=== PATIENT | female | born 1960 | race Two or more races ===

== ENCOUNTER 2024-09-02 11:13 | Emergency (ER) | payer MEDICARE, SELFPAY ==
[2024-09-02 12:41] VITALS: BP 166/62; PULSE 71; RESP 19; TEMP 36.5; O2SAT 96; BMI 39.9
--- NOTE | 2024-09-02 13:04 | XR_ITS ---
Examination: PA lateral chest 2 views TECHNIQUE: Upright PA lateral chest 2 views Exam date 9: September 02, 2023 1318 hours Comparison February 16, 2024 INDICATIONS: Patient fell 2 days ago with injury of the chest, chest pain weakness FINDINGS: Normal heart size Mild vascular congestion. No pneumothorax. Moderate osteopenia. Lateral coned ribs thoracic vertebral bodies appear intact IMPRESSION: No pneumothorax pulmonary contusion or hemothorax
--- NOTE | 2024-09-02 13:04 | EKG_ITS ---
[facility] Test Date: 2024-09-02 Pat Name: SOLE HENDRICKSON Department: Room: - Gender: Female Anode Adjuster: : 1960 Requested By: Bala Foss Order Number: [id number] Reading MD: Bala Foss Measurements Intervals [place] Rate: 69 P: 30 DC: 168 QRS: 17 QRSD: 94 T: 26 QT: 401 QTc: 432 Interpretive Statements SINUS RHYTHM Compared to ECG 09/21/2023 10:28:59 No significant changes /store/S0/[id number]
--- NOTE | 2024-09-02 13:08 | EDNOTE_ITS ---
<Statement entered by Angela Luna MD - 09/03/24 06:45> As co-signing physician, I was present and available for consult prn. I concur with the plan and care as documented by the midlevel provider. ED Fall Injury RME/HPI General Chief Complaint: Fall Stated Complaint: FALL 2 DAYS AGO, GENERALIZED PAIN Time Seen by Provider: 09/02/24 12:51 Arrival date/time: 09/02/24 11:13 RME / HPI RME / HPI Narrative: 64-year-old patient with history of diabetes presents emergency department with complaint of generalized body pain and weakness. Patient states that she was diagnosed with pemphigus and prescribed Imuran by her PCP she was also prescribed a steroid cream. Patient states that she has not had any relief from her diagnosis but has persistently gotten generalized bodyaches which led to a fall 2 days ago she denies trauma from the fall. Patient is currently afebrile nontoxic-appearing. Related Data Home Medications ?Medication ?Instructions ?Recorded ?Confirmed lisinopril 30 mg tablet 20 mg PO QDAY #0 tabs 10/07/14 06/17/20 insulin glargine 100 unit/mL (3 45 unit subcut QDAY 03/06/18 06/17/20 mL) subcutaneous pen (Basaglar KwikPen U-100 Insulin) pregabalin 100 mg capsule (Lyrica) 100 mg PO BID 03/06/18 06/17/20 Previous Rx's ?Medication ?Instructions ?Recorded ibuprofen 800 mg tablet 800 mg PO TID PRN pain #30 tabs 08/21/18 cephalexin 500 mg capsule (Keflex) 500 mg PO BID #20 caps 06/17/20 azithromycin 250 mg tablet See Rx Instructions PO .COMPLEX #6 07/01/21 (Zithromax Z-Gee) tabs ciprofloxacin HCl 500 mg tablet 500 mg PO BID #10 tabs 02/18/23 (Cipro) ciprofloxacin HCl 500 mg tablet 500 mg PO BID #14 tabs 09/21/23 (Cipro) meclizine 50 mg tablet 50 mg PO QDAY #14 tabs 09/21/23 furosemide 20 mg tablet (Lasix) 20 mg PO QDAY #14 tabs 11/05/23 potassium chloride 20 mEq 20 meq PO QDAY #10 tabs 11/05/23 tablet,extended release(part/cryst) sulfamethoxazole 800 1 tab PO BID #14 tabs 11/05/23 mg-trimethoprim 160 mg tablet (Bactrim DS) promethazine 6.25 mg/5 mL oral 6.25 mg (5 mL) PO TID PRN allergy 02/16/24 syrup symptoms #473 mL Allergies Allergy/AdvReac Type Severity Reaction Status Date / Time vancomycin Allergy Severe HEART Verified 09/02/24 11:16 PALPITATION, CONFUSION, STOMACH PAIN Review of Systems Review of Systems Systems Reviewed: All systems reviewed, normal except as documented Constitutional Constitutional: Reports system reviewed and no additional complaints, except as documented ENT Ears, Nose, Mouth, and Throat: Reports system reviewed and no additional complaints, except as documented Cardiovascular Cardiovascular: Reports system reviewed and no additional complaints, except as documented Gastrointestinal Gastrointestinal: Reports system reviewed and no additional complaints, except as documented Musculoskeletal Musculoskeletal: Reports system reviewed and no additional complaints, except as documented Neurologic Neurologic: Reports system reviewed and no additional complaints, except as documented ED Exam General General appearance: Present alert and in no apparent distress Head Head exam: Present atraumatic and normocephalic ENT ENT exam: Present normal exam and normal oropharynx Chest Chest inspection: Present normal inspection and symmetric chest wall rise Respiratory Respiratory exam: Present normal lung sounds bilaterally Cardiovascular Cardiovascular exam: Present regular rate and normal rhythm Extremities Exam Extremities exam: Present normal inspection and full ROM Neurological Exam Neurological exam: Present alert and oriented X3 Psychiatric Psychiatric exam: Present normal affect Course Quality Measures none Orders Category Date Time Status EKG (ED ONLY) *Do not use* NOW Care 09/02/24 13:04 Completed EKG (ED Only) Stat Exams 09/02/24 13:04 Draft XR chest 2V Stat Exams 09/02/24 13:04 Completed B-Type Natriuretic Peptide Stat Lab 09/02/24 13:40 Completed CBC Stat Lab 09/02/24 13:40 Completed Comprehensive Metabolic Panel Stat Lab 09/02/24 13:40 Completed Lipase Stat Lab 09/02/24 13:40 Completed Troponin I Stat Lab 09/02/24 13:40 Completed Furosemide Inj [Lasix Inj] Med 09/02/24 13:04 Discontinued 20 mg IVP X1 ONE Sodium Chloride 0.9% 1000 ml [Ns] 1,000 ml Med 09/02/24 13:05 Discontinued IV 999 mls/hr Vital Signs Vital signs: Vital Signs Temperature 97.7 F 09/02/24 12:41 Pulse Rate 71 09/02/24 12:41 Respiratory Rate 19 09/02/24 12:41 Blood Pressure 166/62 H 09/02/24 12:41 Pulse Oximetry (%) 96 09/02/24 12:41 Oxygen Delivery Method Room Air 09/02/24 12:41 Procedures -ED EKG Interpretation #1: Date of EK09/02/24 Time of EK:11 Rate: 69 Interpretation: Reviewed by me EKG Impression: No acute ST-T changes Fall MDM Narrative MDM Narrative:: Labs unremarkable patient stable to follow-up up with PCP Patient data External records reviewed:: None Clinical information provided by:: patient Social determinants that could affect healthcare access:: none Patient has the following chronic illnesses:: DM How is presenting disease/condition affected by chronic disease/condition?: exacerbated by Evaluation data The following diagnostics were reviewed and interpreted by me:: lab results, radiology exam(s) and EKG tracing(s) Lab and/or radiology exams considered but not ordered:: considered and ordered Interpretation Summary: n/a Medications / Prescriptions Medications or Prescriptions considered but not ordered:: na Medication administrations:: Medication Administration History Discontinued Medications Furosemide (Furosemide Inj 10 Mg/Ml 4ml Vial) 20 mg IVP X1 ONE Stop: 09/02/24 13:05 Sodium Chloride (Ns) 1,000 mls @ 999 mls/hr IV .Q1H1M ONE Stop: 09/02/24 14:05 per above Consultations Consultation(s) initiated? (list below): No Diagnosis Fall Differential Diagnosis: syncope, dislocation of shoulder region, fracture of wrist, compression fracture, concussion with loss of consciousness and concussion without loss of consciousness Most likely diagnosis given after review of the tests above:: medical screen, reaction to Azathiopine Admission Indicated Admission indicated?: not indicated Admission Request Was there a request for admission?: No Disposition Plan Disposition Plan: Discharge Discharge Attestation Discharge Attestation: The patient and all family members were given an opportunity to ask questions and understood the discharge instructions. Discharge instructions specifically effects, indications for sooner follow up or return to the emergency department, and the expected course of current diagnosis. Patient condition: Stable Discharge Plan Plan Patient Disposition: HOME (Self Care) Prescriptions/Referrals Prescriptions/Med Rec: No Action lisinopril 30 MG tablet 20 mg PO QDAY Qty: 0 cephalexin [Keflex] 500 mg capsule 500 mg PO BID Qty: 20 0RF pregabalin [Lyrica] 100 mg Capsule 100 mg PO BID Shunaglekaterina LimonikPen U-100 Insulin 100 unit/mL (3 mL) Insulin Pen 45 unit SUB-Q QDAY ibuprofen 800 mg tablet 800 mg PO TID PRN (Reason: pain) Qty: 30 0RF azithromycin [Zithromax Z-Gee] 250 mg tablet See Rx Instructions PO .COMPLEX Qty: 6 0RF Rx Instructions: take 500 mg today (day 1), then 250 mg for 4 days (days 2-5) meclizine 50 mg tablet 50 mg PO QDAY Qty: 14 0RF ciprofloxacin HCl [Cipro] 500 mg tablet 500 mg PO BID Qty: 14 0RF sulfamethoxazole-trimethoprim [Bactrim DS] 800-160 mg tablet 1 tab PO BID Qty: 14 0RF furosemide [Lasix] 20 mg tablet 20 mg PO QDAY Qty: 14 0RF potassium chloride 20 mEq tablet,ER particles/crystals 20 meq PO QDAY Qty: 10 0RF ciprofloxacin HCl [Cipro] 500 mg tablet 500 mg PO BID Qty: 10 0RF promethazine 6.25 mg/5 mL syrup 6.25 mg PO TID PRN (Reason: allergy symptoms) Qty: 473 0RF Rx Instructions: 3 doses during day; last dose no later than 4 hr before bedtime Referrals: Rickie Landrum MD [Primary Care Provider] - In 1 week Problem List Clinical Impression: Myalgia Patient/Caregiver Discharge Instructions Education Materials: Communicating About Pain, ED Myalgias Print Language: Dominican Stand Alone Forms: Adrianne Award Info., Patient Portal Info Letter
[2024-09-02 13:45] LABS: Basophils # (Auto) 0.1 Thou/mm3 (0.0-0.2); Basophils % (Auto) 1 % (0-2.5); Eosinophils # (Auto) 0.6 Thou/mm3 (0.0-0.5); Eosinophils % (Auto) 6 % (0-10); Hematocrit 44.6 % (36.0-46.0); Hemoglobin 14.4 g/dL (12.0-16.0); Immature Granulocytes % (Auto) 0 % (0-0); Immature Granulocytes Auto 0.03 Thou/mm3 (0.00-0.00); Lymphocytes # (Auto) 1.4 Thou/mm3 (1.0-4.8); Lymphocytes % (Auto) 12 % (10-50); Mean Corpuscular HGB Conc 32.3 g/dl (31.0-37.0); Mean Corpuscular Hemoglobin 31.4 pg (25.0-35.0); Mean Corpuscular Volume 97 fL (80-100); Monocytes # (Auto) 0.7 Thou/mm3 (0.0-0.8); Monocytes % (Auto) 6 % (0-12); Neutrophils # (Auto) 8.3 Thou/mm3 (1.8-7.7); Neutrophils % (Auto) 75 % (37-80); Nucleated Red Blood Cell % 0 /100 WBC (0); Platelet Count 303 Thou/mm3 (140-440); RDW Standard Deviation 59.9 fL (36.4-46.3); Red Blood Count 4.59 Miln/mm3 (4.00-5.20); White Blood Count 11.1 Thou/mm3 (3.6-11.0)
[2024-09-02 14:03] LABS: Alanine Aminotransferase 30 U/L (10-49); Albumin, Serum 3.9 gm/dL (3.4-4.8); Albumin/Globulin Ratio 1.2 (1.2-2.2); Alkaline Phosphatase 175 U/L (46-116); Anion Gap 7 (7-16); Aspartate Amino Transferase 45 U/L (0-34); BUN/Creatinine Ratio 33 Ratio (12-20); Bilirubin,Total 0.5 mg/dL (0.3-1.2); Blood Urea Nitrogen 26 mg/dL (9-23); Calcium 9.5 mg/dL (8.3-10.6); Calcium (Corrected) 9.6 mg/dL (8.5-10.1); Carbon Dioxide 29.7 mMol/L (20.0-31.0); Chloride 105 mMol/L (98-107); Creatinine (Component) 0.8 mg/dL (0.6-1.3); Estimated Creatinine Clearance 83.1 mL/min (>60); Globulin 3.2 gm/dL (2.3-3.5); Glucose 100 mg/dL (74-106); Lipase 82 U/L (12-53); Osmolality,Calculated 287 (275-295); Potassium 4.1 mMol/L (3.4-5.1); Sodium 142 mMol/L (136-145); Total Protein 7.1 gm/dL (5.7-8.2); Troponin I < 0.020 ng/mL (0.0-0.045); eGFR > 60 See Note
[2024-09-02 14:08] LABS: B-Type Natriuretic Peptide 64 pg/mL (0-100)
[2024-09-02] MEDS: SODIUM CHLORIDE 0.9% 1000 ML 1,000 ML 999 ML IV (16:20)
[2024-09-02 16:29] VITALS: BP 166/67; PULSE 73
[2024-09-02] MEDS: FUROSEMIDE INJ 10 MG/ML 4ML VIAL 20 MG IVP (16:29)
--- NOTE | 2024-09-02 17:09 | PC.NURSE ---
Received report from Zenobia ARMENTA and assumed care of patient.
[2024-09-02] MEDS: MORPHINE SULF INJ 10 MG/ML VIAL 4 MG IVP (18:07)
[2024-09-02 18:11] VITALS: BP 174/63; PULSE 65; RESP 18; TEMP 36.4; O2SAT 94
== END 2024-09-02 18:18 | disposition home or self-care (01) ==
PROVIDERS: Physician Assistant; Emergency Provider Emergency Medicine; PCP Family Medicine
DX: M79.10 Myalgia, unspecified site (principal); R53.1 Weakness
CPT/HCPCS: 36415; 71046; 80053; 83690; 83880; 84484; 85025; 93005; 96361; 96374; 96375; 99284; J1940; J2270; J7030

== ENCOUNTER 2024-10-01 18:17 | Emergency (ER) | payer MEDICARE, SELFPAY ==
[2024-10-01] VITALS (9 sets, daily range): BP systolic 142–167; BP diastolic 61–89; PULSE 56–88; RESP 16–20; TEMP 36.4–36.6; O2SAT 87–99; BMI 39.4
--- NOTE | 2024-10-01 18:49 | PD.EDFALL ---
ED Fall Injury RME/HPI General Chief Complaint: Fall Stated Complaint: FALL Time Seen by Provider: 10/01/24 18:35 Source: patient Arrival date/time: 10/01/24 18:17 Mode of arrival: ambulatory Limitations: no limitations RME / HPI RME / HPI Narrative: Dr. 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 She was brought in by ambulance for significant back pain and right upper quadrant pain. The patient states that she was walking into a restaurant when she suddenly fell backward. She denies experiencing dizziness, shortness of breath, chest pain, or lightheadedness prior to the fall. She reports a history of right foot drop. She also denies any recent Tdap vaccination. Related Data Home Medications ?Medication ?Instructions ?Recorded ?Confirmed lisinopril 30 mg tablet 20 mg PO QDAY #0 tabs 10/07/14 06/17/20 insulin glargine 100 unit/mL (3 45 unit subcut QDAY 03/06/18 06/17/20 mL) subcutaneous pen (Basaglar KwikPen U-100 Insulin) pregabalin 100 mg capsule (Lyrica) 100 mg PO BID 03/06/18 06/17/20 Previous Rx's ?Medication ?Instructions ?Recorded ibuprofen 800 mg tablet 800 mg PO TID PRN pain #30 tabs 08/21/18 cephalexin 500 mg capsule (Keflex) 500 mg PO BID #20 caps 06/17/20 azithromycin 250 mg tablet See Rx Instructions PO .COMPLEX #6 07/01/21 (Zithromax Z-Gee) tabs ciprofloxacin HCl 500 mg tablet 500 mg PO BID #10 tabs 02/18/23 (Cipro) ciprofloxacin HCl 500 mg tablet 500 mg PO BID #14 tabs 09/21/23 (Cipro) meclizine 50 mg tablet 50 mg PO QDAY #14 tabs 09/21/23 furosemide 20 mg tablet (Lasix) 20 mg PO QDAY #14 tabs 11/05/23 potassium chloride 20 mEq 20 meq PO QDAY #10 tabs 11/05/23 tablet,extended release(part/cryst) sulfamethoxazole 800 1 tab PO BID #14 tabs 11/05/23 mg-trimethoprim 160 mg tablet (Bactrim DS) promethazine 6.25 mg/5 mL oral 6.25 mg (5 mL) PO TID PRN allergy 02/16/24 syrup symptoms #473 mL mupirocin 2 % topical ointment 1 applic topical BID 7 days #15 10/01/24 grams Allergies Allergy/AdvReac Type Severity Reaction Status Date / Time vancomycin Allergy Severe HEART Verified 09/02/24 11:16 PALPITATION, CONFUSION, STOMACH PAIN Review of Systems Review of Systems Systems Reviewed: All systems reviewed, normal except as documented Past Medical History Past Medical History NEUROLOGIC: Negative Neurological Disorders or Seizures CARDIAC: Positive Hypertension; Negative Cardiac Disorders or Congestive Heart Failure RESPIRATORY: Negative Chronic Obstructive Pulmonary Disease (COPD) or Asthma GASTROINTESTINAL: Positive Gastrointestinal Disorders (hernia x 3) GENITOURINARY: Negative Renal Disease MUSCULOSKELETAL: Positive Musculoskeletal Disorders (osteoarthritis hips) ENDOCRINE: Positive Endocrine Disorders, Diabetes Mellitus Type 2 and Hypothyroidism; Negative Diabetes Mellitus Type 1 HEMATOLOGIC: Negative Sickle Cell Disease OTHER HISTORY: Positive Falls; Negative Blood Transfusions or Anesthesia Reactions Family History FAMILY HISTORY: Negative Family Gastrointestinal Problems Surgical History SURGICAL: Positive Bowel Surgery Social History SMOKING STATUS: Never smoker SECOND HAND EXPOSURE: No SUBSTANCE USE: does not use ED Exam Narrative Physical exam: GENERAL APPEARANCE: alert and oriented x 4, well-developed, well-nourished, no acute distress VITALS: All vitals were reviewed and the pulse ox is 95% on room air, which is normal according to my interpretation. HEENT: Normocephalic, atraumatic; pupils equal, round, reactive to light; EOMI; mucous membranes pink, moist; oropharynx clear NECK: Supple LUNGS: CTABL; no wheezes, no rales, no rhonchi HEART: Regular rate, regular rhythm; normal S1, S2; no murmurs ABDOMEN: non distended; normal BS; soft, no tenderness, no guarding, no rebound; no masses, no organomegaly, no hernia BACK: no CVA tenderness EXTREMITIES: atraumatic; no edema NEUROLOGIC: awake; alert and oriented x4; cranial nerves II-XII grossly intact; no focal sensory or motor deficits PSYCHIATRIC: appropriate mood and affect SKIN: Posterior distal scott: 2 cm open lesion without surrounding erythema, swelling, or drainage. Several well-healed circular lesions noted bilaterally. Right ankle (medial side): <1 cm open lesion without surrounding erythema, swelling, or drainage. Right patella: Small superficial abrasion with associated swelling and ecchymosis. General Limitations: Present no limitations Course Quality Measures none Orders Category Date Time Status Bedside Blood Glucose NOW Care 10/01/24 18:[address] Screening NOW Care 10/01/24 18:53 Active Marriage And Family Social Worker NOW Care 10/01/24 18:53 Active Continuous Pulse Oximetry NOW Care 10/01/24 18:52 Completed EKG (ED ONLY) *Do not use* NOW Care 10/01/24 18:53 Completed In and Out Catheter X1 Care 10/01/24 18:52 Active Insert IV NOW Care 10/01/24 18:53 Active NPO NOW Care 10/01/24 18:[address] abdomen pelvis w con Stat Exams 10/01/24 18:[address] cervical spine wo con Stat Exams 10/01/24 18:[address] head/brain wo con Stat Exams 10/01/24 18:52 Completed EKG (ED Only) Stat Exams 10/01/24 18:52 Draft XR knee comp RT 4V Stat Exams 10/01/24 18:52 Completed Alcohol, Blood Medical Stat Lab 10/01/24 19:10 Completed CBC Stat Lab 10/01/24 19:10 Completed Comprehensive Metabolic Panel Stat Lab 10/01/24 19:10 Completed Drug Screen,Urine Stat Lab 10/01/24 18:53 Ordered Lipase Stat Lab 10/01/24 19:10 Completed Troponin I Stat Lab 10/01/24 19:10 Completed Urinalysis Stat Lab 10/01/24 18:53 Ordered Morphine Inj Med 10/01/24 18:57 Active 2 mg IVP Q30M PRN Ondansetron Inj [Zofran Inj] Med 10/01/24 18:57 Discontinued 4 mg IV X1 ONE Tet,Diphth,Pertuss(Acell)-Tdap [Boostrix Vacc] Med 10/01/24 18:57 Discontinued 0.5 ml IMI .ONCE ONE Vital Signs Vital signs: Vital Signs Temperature 97.6 F 10/01/24 18:20 Pulse Rate 65 10/01/24 18:20 Respiratory Rate 16 10/01/24 18:20 Blood Pressure 166/81 H 10/01/24 18:20 Pulse Oximetry (%) 95 10/01/24 18:20 Oxygen Delivery Method Room Air 10/01/24 18:20 Procedures -ED Procedure Comment Patient's EKG at 20:05, according to my interpretation, showed NSR at 64 bpm, normal axis, no ectopy. No signs of acute ischemia. Fall MDM Narrative MDM Narrative:: 64-year-old female presents for significant back pain and right upper quadrant pain following ground level fall. Plan: -Order CT abdomen pelvis w con, CT head/brain wo con, CT cervical spine wo con, RT knee XR 4V -Administer appropriate pain relief for comfort -Treat lower extremity wounds as needed Scribe Attestation: I, Camille Beckwith, am scribing for and in the presence of Dr. Navarrete. Provider Notation: Although this document has been carefully reviewed, there may still be some phonetic and other typographical errors. These errors are purely grammatical due to imperfections in the software program and should not be construed in any way to compromise the substance of the patient's medical care during this visit. Patient data External records reviewed:: [facility] previous records and EMS form Clinical information provided by:: patient Social determinants that could affect healthcare access:: none Patient has the following chronic illnesses:: See PMH How is presenting disease/condition affected by chronic disease/condition?: uneffected by Evaluation data The following diagnostics were reviewed and interpreted by me:: lab results, radiology exam(s) and EKG tracing(s) Lab and/or radiology exams considered but not ordered:: None Interpretation Summary: XR RT knee 4V, my interpretation, no fractures, no patella fracture, no joint effusion Examination: CT brain head without contrast. Date and time of exam:October 01, 2024 at 1942 hours INDICATIONS: Patient fell today with injury of the head, head pain Findings: No significant ventricular enlargement. Intra-axial or extra-axial hemorrhage density is not seen. No mass effect or midline shift Basal cisterns are not remarkable. Fourth ventricle is midline. Cranial vault intact. Impression: Negative for acute hemorrhage, mass effect or midline shift Dictated By: Rj Fritz MD Examination: CT cervical spine without contrast 2-D sagittal reconstructions 2-D coronal reconstructions 3-D reconstructions. Exam date and time:October 01, 2024 1947 hours INDICATIONS: Patient fell today with injury to the neck, neck pain Findings: Axial sections demonstrate intact base of the skull. C1 exhibit satisfactory relationship to the odontoid. No acute cervical vertebral body fracture seen. Alignment posterior spinous processes satisfactory. Impression: No acute cervical fracture. Suspicious for septal edema in the lung mathew, recommend PA and lateral chest follow-up Dictated By: Rj Fritz MD Examination: CT abdomen with intravenous contrast CT pelvis with intravenous contrast 2-D coronal reconstructions 2-D sagittal reconstructions Date and time of exam:October 01, 20244 hours INDICATIONS: Upper abdominal pain after ground-level fall today. Findings: Liver is mildly irregular in contour No focal liver splenic or renal laceration, no perinephric hematoma Absent gallbladder No pancreatic mass Abdominal aorta intact, no free blood in the abdomen Negative for pneumoperitoneum Right anterior lateral abdominal wall hernia defect 23 mm Soft tissue density in subcutaneous fatty tissue in the lower abdomen and pelvis which may represent soft tissue contusion as well as left flank posterior to the left hip Lumbar vertebral bodies sacral segments appear intact Bones of the pelvis hips appear intact Laminectomies lower 3 lumbar levels. IMPRESSION: No abdominal parenchymal laceration Abdominal aorta intact No free blood in the abdomen or pelvis Possible soft tissue contusion and subcutaneous fatty tissue lower anterior abdominal and pelvic wall, clinical correlation is advised Dictated By: Rj Fritz MD Medications / Prescriptions Medications or Prescriptions considered but not ordered:: None Medication administrations:: Medication Administration History Morphine Sulfate (Morphine Sulf Inj 10 Mg/Ml Vial) 2 mg IVP Q30M PRN PRN Reason: PAIN Last Admin: 10/01/24 21:17 Dose: 2 mg Documented By: Admin: 10/01/24 20:05 Dose: 2 mg Documented By: EF Discontinued Medications Diphtheria/Tetanus/Acell Pertussis (Diphth,Pertuss(Acell),Tet Vac 0.5 Ml Vial) 0.5 ml IMi .ONCE ONE Stop: 10/01/24 18:58 Last Admin: 10/01/24 21:17 Dose: 0.5 ml Documented By: MARY Ondansetron HCl (Ondansetron Inj 2 Mg/Ml Inj 2 Ml) 4 mg IV X1 ONE; Protocol Stop: 10/01/24 18:58 Last Admin: 10/01/24 20:06 Dose: 4 mg Documented By: EF As above, if any Consultations Consultation(s) initiated? (list below): No Diagnosis Fall Differential Diagnosis: other (RIght patellar fracture vs knee fracture vs T-Spine fx vs L-Spine fx vs Liver lac vs Right kidney contusion vs C-spine fx vs Skull fracture) Most likely diagnosis given after review of the tests above:: Ground level fall with abrasions Admission Indicated Admission indicated?: not indicated Admission Request Was there a request for admission?: No Disposition Plan Disposition Plan: Discharge Discharge Attestation Discharge Attestation: The patient and all family members were given an opportunity to ask questions and understood the discharge instructions. Discharge instructions specifically effects, indications for sooner follow up or return to the emergency department, and the expected course of current diagnosis. Patient condition: Stable Discharge Plan Plan Patient Disposition: HOME (Self Care) Disposition Comment: Stable for discharge Patient condition on transfer: Stable Prescriptions/Referrals Prescriptions/Med Rec: New mupirocin 2 % ointment 1 applic topical BID 7 Days Qty: 15 0RF No Action lisinopril 30 MG tablet 20 mg PO QDAY Qty: 0 cephalexin [Keflex] 500 mg capsule 500 mg PO BID Qty: 20 0RF pregabalin [Lyrica] 100 mg Capsule 100 mg PO BID Shunaglekaterina Barboza U-100 Insulin 100 unit/mL (3 mL) Insulin Pen 45 unit SUB-Q QDAY ibuprofen 800 mg tablet 800 mg PO TID PRN (Reason: pain) Qty: 30 0RF azithromycin [Zithromax Z-Gee] 250 mg tablet See Rx Instructions PO .COMPLEX Qty: 6 0RF Rx Instructions: take 500 mg today (day 1), then 250 mg for 4 days (days 2-5) meclizine 50 mg tablet 50 mg PO QDAY Qty: 14 0RF ciprofloxacin HCl [Cipro] 500 mg tablet 500 mg PO BID Qty: 14 0RF sulfamethoxazole-trimethoprim [Bactrim DS] 800-160 mg tablet 1 tab PO BID Qty: 14 0RF furosemide [Lasix] 20 mg tablet 20 mg PO QDAY Qty: 14 0RF potassium chloride 20 mEq tablet,ER particles/crystals 20 meq PO QDAY Qty: 10 0RF ciprofloxacin HCl [Cipro] 500 mg tablet 500 mg PO BID Qty: 10 0RF promethazine 6.25 mg/5 mL syrup 6.25 mg PO TID PRN (Reason: allergy symptoms) Qty: 473 0RF Rx Instructions: 3 doses during day; last dose no later than 4 hr before bedtime Referrals: Replaced By [facility] [Outside] - In 1 week Problem List Clinical Impression: Abrasion Patient/Caregiver Discharge Instructions Discharge Activity: activity as tolerated Other Activity Instructions:: Please return to the emergency department for any worsening or any further medical problems Otherwise you should follow-up with your primary care doctor within the next several days Education Materials: Contusion Bone Tx Print Language: Polish Stand Alone Forms: Adrianne Award Info., Patient Portal Info Letter
--- NOTE | 2024-10-01 18:52 | EKG_ITS ---
[facility] Test Date: 2024-10-01 Pat Name: SOLE HENDRICKSON Department: Room: - Gender: Female Contract Designer: : 1960 Requested By: Clark Fong Order Number: [id number] Reading MD: Clark Fong Measurements Intervals [place] Rate: 60 P: 24 NM: 160 QRS: 12 QRSD: 98 T: 29 QT: 428 QTc: 430 Interpretive Statements SINUS RHYTHM Compared to ECG 09/02/2024 13:11:31 No significant changes /store/S0/[id number]
--- NOTE | 2024-10-01 18:52 | XR_ITS ---
Examination: CT abdomen with intravenous contrast CT pelvis with intravenous contrast 2-D coronal reconstructions 2-D sagittal reconstructions Date and time of exam:October 01, 20242023 hours INDICATIONS: Upper abdominal pain after ground-level fall today. CTDI: vol (mGy) 21.1 DLP: (mGycm) 1264 Technique: Multiple axial sections of the abdomen and pelvis have been obtained. 64 slice high-resolution scanner used. 3 mm axial sections have been obtained, post intravenous injection 60 cc [id number] 2-D sagittal, coronal reconstructions obtained. Low dose protocols were performed. One or more of the following dose reduction techniques were used; automated exposure control, adjustment of the mA and/or KV according to patient size, use of iterative reconstruction technique. Findings: Liver is mildly irregular in contour No focal liver splenic or renal laceration, no perinephric hematoma Absent gallbladder No pancreatic mass Abdominal aorta intact, no free blood in the abdomen Negative for pneumoperitoneum Right anterior lateral abdominal wall hernia defect 23 mm Soft tissue density in subcutaneous fatty tissue in the lower abdomen and pelvis which may represent soft tissue contusion as well as left flank posterior to the left hip Lumbar vertebral bodies sacral segments appear intact Bones of the pelvis hips appear intact Laminectomies lower 3 lumbar levels. IMPRESSION: No abdominal parenchymal laceration Abdominal aorta intact No free blood in the abdomen or pelvis Possible soft tissue contusion and subcutaneous fatty tissue lower anterior abdominal and pelvic wall, clinical correlation is advised
--- NOTE | 2024-10-01 18:52 | XR_ITS ---
Examination: CT brain head without contrast. 2-D sagittal coronal reconstructions Date and time of exam:October 01, 2024 at 1942 hours INDICATIONS: Patient fell today with injury of the head, head pain CTDI: vol (mGy):49.3 DLP: (mGycm):952 Technique: Multiple CT axial sections of the brain have been obtained, 5 mm slice thickness. Contrast has not been administered. 2-D sagittal, coronal reconstructions have been obtained Low dose protocols were performed. One or more of the following dose reduction techniques were used; automated exposure control, adjustment of the mA and/or KV according to patient size, use of iterative reconstruction technique. Findings: No significant ventricular enlargement. Intra-axial or extra-axial hemorrhage density is not seen. No mass effect or midline shift Basal cisterns are not remarkable. Fourth ventricle is midline. Cranial vault intact. Impression: Negative for acute hemorrhage, mass effect or midline shift
--- NOTE | 2024-10-01 18:52 | XR_ITS ---
Examination: Right knee 4 views TECHNIQUE: AP oblique lateral axial right knee 4 views Standing time: October 01, 2024 1911 hours INDICATIONS: Patient fell today with injury of the knee, knee pain. FINDINGS: Severe osteopenia. No acute fracture. No dislocation. Soft tissue vascular calcification. No patellar dislocation IMPRESSION: No acute fracture. Given the severe osteopenia, recommend short-term follow-up knee films as clinically warranted
--- NOTE | 2024-10-01 18:52 | XR_ITS ---
Examination: CT cervical spine without contrast 2-D sagittal reconstructions 2-D coronal reconstructions 3-D reconstructions. Exam date and time:October 01, 2024 1947 hours INDICATIONS: Patient fell today with injury to the neck, neck pain CTDI:vol (mGy) 9.56 DLP: (mGycm) 193 Technique: Multiple 2 mm axial sections of the cervical spine have been obtained. The coronal and sagittal reconstructions have been obtained. 3-D reconstructions have been obtained. Low dose protocols were performed. One or more of the following dose reduction techniques were used; automated exposure control, adjustment of the mA and/or KV according to patient size, use of iterative reconstruction technique. Findings: Axial sections demonstrate intact base of the skull. C1 exhibit satisfactory relationship to the odontoid. No acute cervical vertebral body fracture seen. Alignment posterior spinous processes satisfactory. Impression: No acute cervical fracture. Suspicious for septal edema in the lung mathew, recommend PA and lateral chest follow-up
[2024-10-01 19:41] LABS: Basophils # (Auto) 0.1 Thou/mm3 (0.0-0.2); Basophils % (Auto) 1 % (0-2.5); Eosinophils # (Auto) 0.4 Thou/mm3 (0.0-0.5); Eosinophils % (Auto) 5 % (0-10); Hematocrit 42.5 % (36.0-46.0); Hemoglobin 13.6 g/dL (12.0-16.0); Immature Granulocytes % (Auto) 1 % (0-0); Immature Granulocytes Auto 0.05 Thou/mm3 (0.00-0.00); Lymphocytes # (Auto) 1.2 Thou/mm3 (1.0-4.8); Lymphocytes % (Auto) 13 % (10-50); Mean Corpuscular Hemoglobin 31.3 pg (25.0-35.0); Mean Corpuscular Volume 98 fL (80-100); Monocytes # (Auto) 0.5 Thou/mm3 (0.0-0.8); Monocytes % (Auto) 5 % (0-12); Neutrophils # (Auto) 7.1 Thou/mm3 (1.8-7.7); Neutrophils % (Auto) 76 % (37-80); Nucleated Red Blood Cell % 0 /100 WBC (0); Platelet Count 303 Thou/mm3 (140-440); RDW Standard Deviation 60.6 fL (36.4-46.3); Red Blood Count 4.34 Miln/mm3 (4.00-5.20); White Blood Count 9.3 Thou/mm3 (3.6-11.0)
[2024-10-01] MEDS: MORPHINE SULF INJ 10 MG/ML VIAL 2 MG IVP ×3 (20:05→22:36)
[2024-10-01] MEDS: ONDANSETRON INJ 2 MG/ML INJ 2 ML 4 MG IV (20:06)
[2024-10-01 20:18] LABS: Alanine Aminotransferase 25 U/L (10-49); Albumin, Serum 3.7 gm/dL (3.4-4.8); Albumin/Globulin Ratio 1.1 (1.2-2.2); Alcohol, Blood Medical < 3.0 mg/dL (0-10.0); Alkaline Phosphatase 353 U/L (46-116); Anion Gap 5 (7-16); Aspartate Amino Transferase 27 U/L (0-34); BUN/Creatinine Ratio 32 Ratio (12-20); Bilirubin,Total 0.6 mg/dL (0.3-1.2); Blood Urea Nitrogen 29 mg/dL (9-23); Calcium 9.4 mg/dL (8.3-10.6); Calcium (Corrected) 9.6 mg/dL (8.5-10.1); Carbon Dioxide 31.7 mMol/L (20.0-31.0); Chloride 103 mMol/L (98-107); Creatinine (Component) 0.9 mg/dL (0.6-1.3); Estimated Creatinine Clearance 73.3 mL/min (>60); Globulin 3.4 gm/dL (2.3-3.5); Glucose 321 mg/dL (74-106); Lipase 73 U/L (12-53); Osmolality,Calculated 297 (275-295); Potassium 3.9 mMol/L (3.4-5.1); Sodium 140 mMol/L (136-145); Total Protein 7.1 gm/dL (5.7-8.2); Troponin I < 0.020 ng/mL (0.0-0.045); eGFR > 60 See Note
[2024-10-01] MEDS: DIPHTH,PERTUSS(ACELL),TET VAC 0.5 ML VIAL IMi (21:17)
--- NOTE | 2024-10-01 21:24 | PC.NURSE ---
Pt has chronic skin sores on legs. Dressings applied per pt request. no S&S of infection noted
== END 2024-10-01 23:17 | disposition home or self-care (01) ==
LOC: SERX 22:06
PROVIDERS: Emergency Provider Emergency Medicine; PCP Family Medicine
DX: S80.211A Abrasion, right knee, initial encounter (principal); W18.30XA Fall on same level, unspecified, initial encounter; E11.9 Type 2 diabetes mellitus without complications; I10 Essential (primary) hypertension; E03.9 Hypothyroidism, unspecified; M54.9 Dorsalgia, unspecified; R10.11 Right upper quadrant pain
CPT/HCPCS: 36415; 70450; 72125; 73564; 74177; 80053; 80307; 80320; 81001; 83690; 84484; 85025; 90715; 93005; 96374; 96375; 99285; A4649; J2270; J2405; Q9967; G0480

== ENCOUNTER 2024-11-04 10:05 | Inpatient (IN) | payer MEDICARE, SELFPAY ==
[2024-11-04] VITALS (17 sets, daily range): BP systolic 165–182; BP diastolic 60–73; PULSE 72–87; RESP 15–23; TEMP 36.5–37.1; O2SAT 2–99; BMI 40.6; BMI 41.6; BMI 42.0
--- NOTE | 2024-11-04 10:28 | XR_ITS ---
Examination: AP chest single view Technique one AP portable semiupright chest single view Exam date and time: November 04, 2024 at 1048 hours INDICATIONS: Coughing today. FINDINGS: Moderate heart failure Mild enlargement cardiac contour, prominent vascular congestion and perihilar edema Consider superimposed pneumonia at the lung bases Prominent osteopenia IMPRESSION: Moderate heart failure Consider superimposed pneumonia at the lung bases
--- NOTE | 2024-11-04 10:28 | EKG_ITS ---
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
[2024-11-04] MEDS: ALBUTEROL RT 2.5 MG/3 ML NEBU INH (11:03)
[2024-11-04] MEDS: IPRATROPIUM RT 0.5 MG/ 2.5 ML NEBU INH (11:03)
[2024-11-04] MEDS: MethylPREDNISolone SOD SUCC 62.5 MG/ML 2ML VIAL 125 MG IVP (11:14)
[2024-11-04 11:17] LABS: Base Excess, Venous 2 (-3-3); Basophils # (Auto) 0.1 Thou/mm3 (0.0-0.2); Basophils % (Auto) 1 % (0-2.5); Eosinophils % (Auto) 0 % (0-10); Hemoglobin 13.8 g/dL (12.0-16.0); Immature Granulocytes % (Auto) 1 % (0-0); Immature Granulocytes Auto 0.06 Thou/mm3 (0.00-0.00); Lymphocytes # (Auto) 1.1 Thou/mm3 (1.0-4.8); Lymphocytes % (Auto) 12 % (10-50); Mean Corpuscular HGB Conc 32.9 g/dl (31.0-37.0); Mean Corpuscular Volume 97 fL (80-100); Monocytes % (Auto) 11 % (0-12); Neutrophils # (Auto) 6.7 Thou/mm3 (1.8-7.7); Neutrophils % (Auto) 75 % (37-80); Nucleated Red Blood Cell % 0 /100 WBC (0); O2 Saturation, Venous 88 % (96-97); PCO2, Venous 44 mmHg (36-56); PO2, Venous 51 mmHg (15-58); Platelet Count 277 Thou/mm3 (140-440); RDW Standard Deviation 61.1 fL (36.4-46.3); Red Blood Count 4.31 Miln/mm3 (4.00-5.20); White Blood Count 8.9 Thou/mm3 (3.6-11.0)
[2024-11-04 11:18] LABS: Lactate (Lactic Acid) 1.4 mMol/L (0.4-2.0)
[2024-11-04 11:33] LABS: B-Type Natriuretic Peptide 314 pg/mL (0-100)
[2024-11-04 11:45] LABS: Alanine Aminotransferase 22 U/L (10-49); Albumin, Serum 3.7 gm/dL (3.4-4.8); Albumin/Globulin Ratio 1.1 (1.2-2.2); Alkaline Phosphatase 347 U/L (46-116); Anion Gap 8 (7-16); Aspartate Amino Transferase 26 U/L (0-34); BUN/Creatinine Ratio 26 Ratio (12-20); Bilirubin,Total 0.6 mg/dL (0.3-1.2); Blood Urea Nitrogen 26 mg/dL (9-23); Calcium 9.1 mg/dL (8.3-10.6); Calcium (Corrected) 9.3 mg/dL (8.5-10.1); Carbon Dioxide 27.9 mMol/L (20.0-31.0); Chloride 102 mMol/L (98-107); Estimated Creatinine Clearance 67.1 mL/min (>60); Globulin 3.3 gm/dL (2.3-3.5); Glucose 280 mg/dL (74-106); Magnesium 2.4 mg/dL (1.6-2.6); Osmolality,Calculated 290 (275-295); Potassium 3.7 mMol/L (3.4-5.1); Procalcitonin 0.17 ng/ml (0.0-0.49); Sodium 138 mMol/L (136-145); Troponin I < 0.020 ng/mL (0.0-0.045); eGFR > 60 See Note
--- NOTE | 2024-11-04 11:49 | PC.NURSE ---
PT SIGNED OUT AMA, NOTED TO BE [facility] 15 BY PROVIDER, THIS RN AND MULTIPLE STAFF. PT ADAMANTLY REFUSING CARE, DAUGHTER WENT TO BEDSIDE ON FACETIME W/OTHER DAUGHTER WHO LIVES OUT OF STATE. dAUGHTER WHO LIVES OUT OF STATE WAS TELLING PT DID HE WANT HER TO HELL HIS GRANDCHILD THAT HE SHE HAD ALREADY TOLD THEM THAT. sHE THEN TOLD PT IF HE CHOOSES TO LEAVE WITHOUT TREATMENT THIS WILL BE THE LAST TIME I TALK TO YOU PT THEN STATED THATS FINE IF THAT IS HOW YOU FEEL . DAUGHTER LEFT, GIRLFRIEND JEM AT BEDSIDE, WITNESSED CONSEQUENCES OF PT LEAVING AMA. PT AMBULATORY W/STEADY GAIT WHEN HE LEFT. MULTIPLE WITNESSES TO PT SIGNING OUT AMA
[2024-11-04 16:27] LABS: Collection Type, Urine Catheter
[2024-11-04 16:36] LABS: Bacteria,Urine Rare; Bilirubin,Urine Negative (Negative); Blood,Urine 1+ (Negative); Clarity,Urine Clear (Clear/Hazy); Color,Urine Yellow (Lt Yel-Yel); Glucose, Urine 4+ (Negative); Ketones,Urine Negative (Negative); Leukocyte Esterase,Urine Negative (Negative); Nitrite,Urine Negative (Negative); PH,Urine 6.5 (5.0-7.0); Protein,Urine 3+ (Neg - Trace); RBC,Urine 7 /hpf (0-3); Specific Gravity,Urine 1.028 (1.001-1.035); Squamous Epithelial Cell,Urine < 1 /hpf (0-5); Urobilinogen,Urine Negative mg/dL (0.0-1.0); WBC,Urine 3 /hpf (0-5)
--- NOTE | 2024-11-04 16:38 | PD.EDSOB ---
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 She has lots of cough EMS was called to the scene and found the O2 sats to be low at 88% on room air they gave a single nebulizer treatment and route patient has known diabetes and hypertension. There is no measured fever no vomiting vomiting and no diarrhea there is body aches and fatigue.. Related Data Home Medications ?Medication ?Instructions ?Recorded ?Confirmed lisinopril 30 mg tablet 20 mg PO QDAY #0 tabs 10/07/14 06/17/20 insulin glargine 100 unit/mL (3 45 unit subcut QDAY 03/06/18 06/17/20 mL) subcutaneous pen (Basaglar KwikPen U-100 Insulin) pregabalin 100 mg capsule (Lyrica) 100 mg PO BID 03/06/18 06/17/20 Previous Rx's ?Medication ?Instructions ?Recorded ibuprofen 800 mg tablet 800 mg PO TID PRN pain #30 tabs 08/21/18 cephalexin 500 mg capsule (Keflex) 500 mg PO BID #20 caps 06/17/20 azithromycin 250 mg tablet See Rx Instructions PO .COMPLEX #6 07/01/21 (Zithromax Z-Gee) tabs ciprofloxacin HCl 500 mg tablet 500 mg PO BID #10 tabs 02/18/23 (Cipro) ciprofloxacin HCl 500 mg tablet 500 mg PO BID #14 tabs 09/21/23 (Cipro) meclizine 50 mg tablet 50 mg PO QDAY #14 tabs 09/21/23 furosemide 20 mg tablet (Lasix) 20 mg PO QDAY #14 tabs 11/05/23 potassium chloride 20 mEq 20 meq PO QDAY #10 tabs 11/05/23 tablet,extended release(part/cryst) sulfamethoxazole 800 1 tab PO BID #14 tabs 11/05/23 mg-trimethoprim 160 mg tablet (Bactrim DS) promethazine 6.25 mg/5 mL oral 6.25 mg (5 mL) PO TID PRN allergy 02/16/24 syrup symptoms #473 mL Allergies Allergy/AdvReac Type Severity Reaction Status Date / Time vancomycin Allergy Severe HEART Verified 11/04/24 11:08 PALPITATION, CONFUSION, STOMACH PAIN Review of Systems Review of Systems Narrative Review of Systems: Review of Systems: Constitutional: DENIES: Fevers,; Eyes: DENIES: Loss of vision, Head/Ear/Nose: DENIES: Loss of hearing. Throat: Denies dysphagia. Cardiovascular: Denies chest pain, Dyspnea or syncope. Respiratory: See HPI DENIES: Shortness of breath, Gastrointestinal: DENIES: Rectal bleeding or melena. Genitourinary: DENIES: Dysuria (painful or difficult urination),; Musculoskeletal: DENIES: Arthralgia (pain in a joint),; Skin: DENIES: Rash,; Neurological: DENIES: loss of function or movement,; Psychiatric: DENIES: recent major life stressor, emotional problem, illicit drug use or abuse,; Endocrinology: DENIES: Weight change,; Hematologic/Lymphatic: DENIES: Abnormal bruising. Allergic/Immunologic: DENIES: Urticaria (hives), ED Exam Narrative Physical exam: Physical Exam: General: The vital signs were reviewed. O2 sat is 88% on room air lots of coughing the patient is non-toxic, in no apparent distress and appears healthy with a patent airway, no respiratory distress and has no apparent circulatory problems. Head & Scalp: Normocephalic, atraumatic. Face: Appears normal and is without lesions, deformity. Ears: Left external pinna appears normal. Right external pinna appears normal. Eyes: The sclera is anicteric. No obvious photophobia. The Left and Right Orbit/Lid/Conjunctiva appears normal without swelling, discoloration or injection. Nose: The nose is without deformity, discharge or tenderness; Throat: Appears normal. The mucous membranes are pink and moist without exudates, redness or mass seen. The tongue appears normal. Neck: The neck is supple and no apparent mass or adenopathy. Chest: The chest wall is normal in size and symmetry and has no chest wall tenderness or crepitus. The patient displays normal ventilator effort without retractions, accessory muscle use and has adequate air movement bilaterally with some scattered wheezes bilaterally and no rales. Cardiovascular: Regular rate and rhythm; No murmurs, rubs, or gallops; Gastrointestinal: The abdomen appears normal. No obvious hernias or mass. The abdomen is soft and benign, non-distended, with no pain, no guarding and no rebound tenderness. Bowel sounds are present and normal sounding. No CVA tenderness. Genitourinary: Back/Spine: Nontender Extremities/Musculoskeletal/lymphatic: The bilateral upper and lower extremities are warm. There is sores and dressings on the lower bilateral lower extremities. To manage her pemphigus blisters. There is no obvious cellulitis. There is no evidence of arterial insufficiency. There is no evidence of venous insufficiency/edema. The patient spontaneously moves bilateral upper and lower extremities with no pain and no limitation of movement. There is no apparent, injury or trauma. Skin: The skin is warm, dry and intact. No rashes. No petechia. No purpura. No abnormal bruising. The color is appropriate with no cyanosis. Mental status/Psychiatric: Mental status is appropriate for age. The patient has no apparent delusions, visual hallucinations, no apparent audible hallucinations. The patient has no apparent suicidal thoughts/ideation and no apparent homicidal thoughts/ideation. Neurological: The patient is awake, alert, interactive, cordial, cooperative and is oriented to name and situation. The patient follows commands and answers historical question with no impairment. There is no visual disturbance apparent. The pupils are equal and reactive bilaterally with normal eye movements and no diplopia The bilateral upper and lower extremities have normal strength, normal range of motion and normal functioning. The gait, station and balance was not tested due to acuity Course Quality Measures none Orders Category Date Time Status Bedside COVID-19 Antigen Test NOW Care 11/04/24 10:31 Active Bedside Influenza A&B Antigen Test NOW Care 11/04/24 10:31 Completed Broom Handle Dipper STAT Care 11/04/24 10:28 Active Continuous Pulse Oximetry STAT Care 11/04/24 10:28 Completed EKG (ED ONLY) *Do not use* NOW Care 11/04/24 10:28 Completed Insert IV NOW Care 11/04/24 10:28 Active Miscellaneous Nursing Order NOW Care 11/04/24 10:28 Active Miscellaneous Nursing Order NOW Care 11/04/24 16:52 Active NPO STAT Care 11/04/24 10:28 Active EKG (ED Only) Stat Exams 11/04/24 10:28 Draft XR chest 1V portable Stat Exams 11/04/24 10:28 Completed B-Type Natriuretic Peptide Stat Lab 11/04/24 11:03 Completed Blood Culture (Lab) Stat Lab 11/04/24 10:57 Received CBC Stat Lab 11/04/24 11:03 Completed Comprehensive Metabolic Panel Stat Lab 11/04/24 11:03 Completed Lactate (Lactic Acid) Stat Lab 11/04/24 11:03 Completed Magnesium Stat Lab 11/04/24 11:03 Completed Procalcitonin Stat Lab 11/04/24 11:03 Completed RSV [Respiratory Syncytial Virus Ag] Stat Lab 11/04/24 10:31 Ordered Strep A Rapid Stat Lab 11/04/24 10:31 Ordered Troponin I Stat Lab 11/04/24 11:03 Completed Urinalysis Stat Lab 11/04/24 16:20 Completed Urine Culture Stat Lab 11/04/24 16:20 Received Venous Blood Gas Stat Lab 11/04/24 11:03 Completed ALBUTEROL RT 3ml [Proventil Rt 3ml] Med 11/04/24 10:29 Discontinued 2.5 mg INH X1 ONE Ipratropium Torrey Rt Sarah [Atrovent Rt Sarah] Med 11/04/24 10:28 Discontinued 0.5 mg INH X1 ONE MethylPREDNISolone.* [SoluMEDROL Inj] Med 11/04/24 10:28 Discontinued 125 mg IVP X1 ONE Oxygen Delivery NOW RT 11/04/24 10:28 Active Vital Signs Vital signs: Vital Signs Pulse Rate 83 11/04/24 11:03 Shortness of Breath / Dyspnea MDM Narrative MDM Narrative:: Patient 64-year-old comes in with cough increasing shortness of breath and noted to be hypoxic when EMS arrived. She responded to breathing treatment and O2 on arrival here we worked her up for shortness of breath and found her to have both positive for COVID and influenza. She states in the past albuterol has made her nauseous we gave her a single unit dose treatment and she sees a moving air better better O2 sats stayed in the mid 90s with 3 L of oxygen. Urinalysis came back specific already of 1028 with 7 red cells and 3 white cells. White count 8.9 hemoglobin 13.8 platelet count is 277,000 with a pH of 7.40 pCO2 of 44 electrolytes are normal BUN is 26 creatinine 1.0 with a slight increased BUN/creatinine ratio glucose was 280. Transaminases and bilirubin within normal limits. Chest x-ray reveals bilateral infiltrates consistent with either interstitial pneumonia and/or CHF. Her BNP was a little elevated. There is no fever noted here. Clinically she behaves excellently with influenza and/or COVID or viral illness. Because the x-ray looks significantly abnormal I called the hospitalist and talk to Dr. Patiño and they agree they are going admit the patient and start this out. We discussed giving antibiotics now and they decided watch and wait or make a decision after they reevaluate the patient further. Patient data External records reviewed:: [facility] previous records Clinical information provided by:: patient and EMS Social determinants that could affect healthcare access:: none Patient has the following chronic illnesses:: Diabetes How is presenting disease/condition affected by chronic disease/condition?: no chronic disease Evaluation data The following diagnostics were reviewed and interpreted by me:: lab results (See MDM) and radiology exam(s) (See MDM) Lab and/or radiology exams considered but not ordered:: None Interpretation Summary: See MDM Medications / Prescriptions Medications or Prescriptions considered but not ordered:: None Medication administrations:: Medication Administration History Discontinued Medications Albuterol (Albuterol Rt 2.5 Mg/3 Ml Nebu) 2.5 mg INH X1 ONE Stop: 11/04/24 10:30 Last Admin: 11/04/24 11:03 Dose: 2.5 mg Documented By: SALAZAR Ipratropium Torrey (Ipratropium Rt 0.5 Mg/ 2.5 Ml Nebu) 0.5 mg INH X1 ONE Stop: 11/04/24 10:29 Last Admin: 11/04/24 11:03 Dose: 0.5 mg Documented By: SALAZAR Methylprednisolone Sodium Succinate (Methylprednisolone Sod Succ 62.5 Mg/Ml 2ml Vial) 125 mg IVP X1 ONE Stop: 11/04/24 10:29 Last Admin: 11/04/24 11:14 Dose: 125 mg Documented By: ZEYAD As above Consultations Consultation(s) initiated? (list below): No Diagnosis Shortness of Breath Differential Diagnosis: congestive heart failure and community acquired pneumonia Most likely diagnosis given after review of the tests above:: Combination of congestive heart failure and possibly COVID-pneumonia Admission Indicated Admission indicated?: indicated Admission Request Was there a request for admission?: Yes Admission Attestation Admission request attestation: Discussed case with [] from Hospitalist service regarding admission. Discussed patients ED course, exam findings, labs, and radiology results. The Hospitalist [agrees,declines] to accept the patient for admission. Disposition Plan Disposition Plan: Admit Discharge Plan Plan Patient Disposition: Admit Acute Care w/in Hospital Disposition Comment: Hospitalist to admit Prescriptions/Referrals Prescriptions/Med Rec: No Action lisinopril 30 MG tablet 20 mg PO QDAY Qty: 0 cephalexin [Keflex] 500 mg capsule 500 mg PO BID Qty: 20 0RF pregabalin [Lyrica] 100 mg Capsule 100 mg PO BID Basaglar KwikPen U-100 Insulin 100 unit/mL (3 mL) Insulin Pen 45 unit SUB-Q QDAY ibuprofen 800 mg tablet 800 mg PO TID PRN (Reason: pain) Qty: 30 0RF azithromycin [Zithromax Z-Gee] 250 mg tablet See Rx Instructions PO .COMPLEX Qty: 6 0RF Rx Instructions: take 500 mg today (day 1), then 250 mg for 4 days (days 2-5) meclizine 50 mg tablet 50 mg PO QDAY Qty: 14 0RF ciprofloxacin HCl [Cipro] 500 mg tablet 500 mg PO BID Qty: 14 0RF sulfamethoxazole-trimethoprim [Bactrim DS] 800-160 mg tablet 1 tab PO BID Qty: 14 0RF furosemide [Lasix] 20 mg tablet 20 mg PO QDAY Qty: 14 0RF potassium chloride 20 mEq tablet,ER particles/crystals 20 meq PO QDAY Qty: 10 0RF ciprofloxacin HCl [Cipro] 500 mg tablet 500 mg PO BID Qty: 10 0RF promethazine 6.25 mg/5 mL syrup 6.25 mg PO TID PRN (Reason: allergy symptoms) Qty: 473 0RF Rx Instructions: 3 doses during day; last dose no later than 4 hr before bedtime Referrals: Rickie Landrum MD [Primary Care Provider] - In 1 week Problem List Clinical Impression: Acute interstitial pneumonia, Congestive heart failure, Influenza, COVID, Hypoxemia, RAD (reactive airway disease), Diabetes Patient/Caregiver Discharge Instructions Print Language: Burundian Stand Alone Forms: Adrianne Award Info., Patient Portal Info Letter
--- NOTE | 2024-11-04 18:40 | ESHP_ITS ---
<Statement entered by Bruce Duran MD - 11/04/24 19:49> This patient is a 64-year-old female with past medical history of pemphigus vulgaris, on immunosuppressants, hypertension, diabetes presented with shortness of breath and hypoxia saturating around 88% on room air and was placed on nasal cannula 3 L which improved her oxygen saturation to 95%. She presented with productive cough but no fever spikes were reported. Initially she was found to be mildly hypertensive. Patient was not septic on admission. WBCs were unremarkable. Chest x-ray showed vascular congestion with pneumonia bibasilar. Patient was found to be positive for COVID and influenza. Patient is admitted for acute hypoxic respiratory failure due to influenza pneumonia and COVID.Patient was started on Tamiflu 75 mg twice daily. We ordered cocci serology, blood cultures, RSV and rapid strep antigen. Home medications were reconciled. we will workup for heart failure as well. Started on hydralazine 10 twice daily, Lasix 40 mg x 1 was given, fluid restriction strict MALU's and will follow with an echocardiogram. All labs and orders were reviewed. I saw and examined the patient, and I agree with current management stated by Dr Blair MD,PGY1. Plan of care was discussed with the attending physician and resident physician. Disclaimer: Despite multiple revisions, due to the dictation software being used, the document bellow may not be free of grammatical errors including phonetic/typographic errors. However, this does not deter from our commitment to providing health care in the patient's best interest in mind. Dr. Fara MD, PGY 2 Documentation for date of: 11/04/24 HPI History of Present Illness History of present illness: Ms. Cox is a 64-year-old female with past medical history significant for myalgia, pemphigoid vulgaris, hypertension, hypothyroidism and type 2 diabetes presented to the ED complaining of worsening flulike symptoms and generalized weakness. Patient states that on Friday last week she went to a [employer] [facility] [employer] event for her grandson and on Friday she started having flulike symptoms. Patient states initially she was coughing and started having bodyaches night fevers and chills which progressed to worsening weakness. In the last couple days patient stated she was having severe shortness of breath and was unable to even walk from her bedroom to the kitchen without getting short of breath and having to stop. This morning patient stated that she had the worst shortness of breath weakness headache and was not able to get out of bed. Patient did call her PCP yesterday who prescribed her penicillin she said she took 1 dose at night. At baseline patient uses a walker and a brace because she loses her balance due to a spinal surgery many years ago. Patient states she has some chest pain from coughing too much but denied chest palpitation, pressure, diaphoresis or pain radiating anywhere. Patient denied abdominal pain or diarrhea. Patient states she is very compliant with all her medications and takes them regularly as directed and follows up with PCP regularly. ED course Vitals: 168/66, heart rate 83, saturating 98% on 2 L of oxygen via nasal cannula Labs: WBC 8.9, hemoglobin 13.8, hematocrit 42.0, platelet 277, sodium 138, potassium 3.7, BUN 26 creatinine 1.0, GFR >60 blood glucose 280, lactic acid 1.4, alkaline phosphatase 347, BNP 314 VBG: pH 7.4, pCO2 44, pO2 51, O2 sat 88% Urinalysis shows urine protein 3+, urine glucose 4+, urine ketones negative urine blood 1+, urine RBC 7 Images Chest x-ray of moderate heart failure, consider superimposed pneumonia at the lung bases EKG: Sinus rhythm and nonspecific T wave abnormality PMH: Myalgia, pemphigoid vulgaris, hypertension, hypothyroidism, type 2 diabetes PSH: Total hysterectomy, cholecystectomy, multiple back surgeries SH: Patient states she was exposed to secondhand smoking for 30 years, but never smoked denies drug use and drinks alcohol couple times a year Home Meds: Lovastatin, azathioprine,, levothyroxine, metoprolol, amlodipine, Januvia, Lantus 60 units, Jardiance, aspirin Review of Systems Review of Systems Systems Reviewed: All systems reviewed, normal except as documented Exam Vital Signs Temp Pulse Resp BP Pulse Ox O2 Del Method O2 Flow Rate 97.7 F 82 17 174/67 H 96 Nasal Cannula 3 11/04/24 16:28 11/04/24 16:28 11/04/24 16:28 11/04/24 16:28 11/04/24 16:28 11/04/24 16:28 11/04/24 16:28 Narrative Exam GENERAL: A&Ox3, elderly female, appears uncomfortable due to cough NEURO: no focal neurological deficits HEENT: Atraumatic, Normocephalic. mucous membranes moist. Eyes open, symmetrical, & clear HEART: Normal Heart Sounds LUNGS: Clear to auscultation with no wheezing or crackles. ABDOMEN: soft, non-distended, non-tender, bowel sounds heard, no guarding or rebound tenderness SKIN: No Rash or ecchymoses, ruptured bullous wounds bilaterally on lower extremities EXTREMITIES: No edema, tenderness, able to move all 4 extremities, pedal pulses palpated Results: Labs 11/05/24 06:00 11/05/24 06:00 Labs: Short CBC 11/04/24 Range/Units 11:03 WBC 8.9 (3.6-11.0) Thou/mm3 Hgb 13.8 (12.0-16.0) g/dL Hct 42.0 (36.0-46.0) % Plt Count 277 (140-440) Thou/mm3 BMP 11/04/24 11:03 Sodium 138 Potassium 3.7 Chloride 102 Carbon Dioxide 27.9 BUN 26 H Creatinine 1.0 Glucose 280 H Calcium 9.1 Cardiac Enzymes 11/04/24 Range/Units 11:03 Troponin I < 0.020 (0.0-0.045) ng/mL Liver Function 11/04/24 Range/Units 11:03 Total Bilirubin 0.6 (0.3-1.2) mg/dL AST 26 (0-34) U/L ALT 22 (10-49) U/L Alkaline Phosphatase 347 H (46-116) U/L Albumin 3.7 (3.4-4.8) gm/dL Urine 11/04/24 Range/Units 16:20 Urine Color Yellow (Lt Yel-Yel) Urine Clarity Clear (Clear/Hazy) Urine pH 6.5 (5.0-7.0) Ur Specific [place] 1.028 (1.001-1.035) Urine Protein 3+ A (Neg - Trace) Urine Glucose (UA) 4+ A (Negative) ABG Interpretation ABG results: 11/04/24 11:03 VBG pH 7.40 VBG pCO2 44 VBG pO2 51 VBG Base Excess 2 Quality Measures Quality Measures none Advance care planning discussed with:: patient Medications Home Medications and Allergies Home Medications ?Medication ?Instructions ?Recorded ?Confirmed ?Type lisinopril 30 mg tablet 20 mg PO QDAY #0 tabs 06/17/20 History insulin glargine 100 unit/mL (3 45 unit subcut QDAY 06/17/20 History mL) subcutaneous pen (Basaglar KwikPen U-100 Insulin) pregabalin 100 mg capsule (Lyrica) 100 mg PO BID 03/0606/17/20 History pregabalin 75 mg capsule mg 11/05/24 History Allergies Allergy/AdvReac Type Severity Reaction Status Date / Time vancomycin Allergy Severe HEART Verified 11/04/24 11:08 PALPITATION, CONFUSION, STOMACH PAIN Visit Medications Acetaminophen (Acetaminophen 325 Mg Tablet) 650 mg PO Q6H PRN PRN Reason: Fever >101.5 Stop: 12/04/24 18:18 Amlodipine Besylate (Amlodipine Besylate 5 Mg Tablet) 5 mg PO QDAY CASH Stop: 12/04/24 18:44 Atorvastatin Calcium (Atorvastatin Calcium 10 Mg Tablet) 10 mg PO HS [facility] Stop: 12/04/24 20:59 Dextrose (Dextrose 50%-Water Inj 50 Ml Syringe) 25 ml IV Q15MIN PRN PRN Reason: BG 50-70 responsive npo pt Stop: 12/04/24 18:26 Dextrose (Dextrose 50%-Water Inj 50 Ml Syringe) 50 ml IV Q15MIN PRN PRN Reason: BG <50 OR BG <70 & pt unresponsive Stop: 12/04/24 18:26 Enoxaparin Sodium (Enoxaparin Sod Inj 40 Mg/0.4 Ml Syringe) 40 mg SC QDAY [facility] Stop: 11/19/24 08:59 Glucagon (Glucagon Inj 1 Mg Vial) 1 mg IM Q15MIN PRN PRN Reason: BG <70, and no IV access Insulin Glargine (Insulin Glargine (Lantus) 5 Unit/0.05 Ml (Per 5 Units)) 25 unit SC BID CASH Stop: 12/04/24 20:59 Insulin Human Lispro (Insulin Lispro (Admelog) 1 Unit/0.01 Ml Unit) 5 unit SC ACHS CASH Stop: 12/04/24 20:59 Insulin Human Lispro (Insulin Lispro (Admelog) 1 Unit/0.01 Ml Unit) 0 unit SC AC CASH; Protocol Stop: 12/05/24 07:29 Levothyroxine Sodium (Levothyroxine Sodium 25 Mcg Tablet) 25 mcg PO QDAY [facility] Stop: 12/05/24 08:59 Metoprolol Succinate (Metoprolol Succinate Xl 25 Mg Tabcr) 25 mg PO QDAY [facility] Stop: 12/04/24 18:44 Oseltamivir Phosphate (Oseltamivir 75 Mg Capsule) 75 mg PO BID [facility] Stop: 11/09/24 20:59 Discontinued Medications Albuterol (Albuterol Rt 2.5 Mg/3 Ml Nebu) 2.5 mg INH X1 ONE Stop: 11/04/24 10:30 Last Admin: 11/04/24 11:03 Dose: 2.5 mg Ipratropium [place] (Ipratropium Rt 0.5 Mg/ 2.5 Ml Nebu) 0.5 mg INH X1 ONE Stop: 11/04/24 10:29 Last Admin: 11/04/24 11:03 Dose: 0.5 mg Methylprednisolone Sodium Succinate (Methylprednisolone Sod Succ 62.5 Mg/Ml 2ml Vial) 125 mg IVP X1 ONE Stop: 11/04/24 10:29 Last Admin: 11/04/24 11:14 Dose: 125 mg Assessment & Plan Plan Ms. Cox is a 64-year-old female with past medical history significant for myalgia, pemphigoid vulgaris, hypertension, hypothyroidism and type 2 diabetes presented to the ED complaining of worsening flulike symptoms, SOB and generalized weakness. #Acute hypoxic respiratory failure secondary to #Influenza positive #COVID-positive #Superimposed pneumonia #? CHF exacerbation -Patient has flulike symptoms for the past several days worsening shortness of breath, cough, body aches, weakness, and night fevers and chills -Although patient denies any previous cardiac history patient does take Lasix and metoprolol, chest x-ray findings are suggestive of heart failure and BNP is 314 -Bedside influenza A positive as well as COVID-positive, lactic acid 1.4 -Patient was recently exposed to a big crowd -Chest x-ray of moderate heart failure, consider superimposed pneumonia at the lung bases Plan: --In the ED patient is given Solu-Medrol 125 mg x 1, DuoNeb x 1 -DuoNebs as needed and supplemental oxygen as needed -Tamiflu start 11/04- -echo ordered -Lasix and statin daily #Pemphigoid vulgaris -Patient has ruptured bolus bilaterally on lower extremities -Resumed home azathioprine -Wound care ordered #Primary hypertension -On admission patient blood pressure is elevated -P.o. hydralazine is added in addition to resuming home amlodipine and metoprolol -Will consider switching patient to lisinopril as patient does have protein in the urine and has a history of diabetes #Hypothyroidism -Resumed home levothyroxine -Order TSH for a.m. labs #Insulin-dependent type 2 diabetes -Patient's home regimen includes Januvia, Jardiance, Lantus 60 units -Started patient on Lantus 25 twice daily, lispro 5 units with each meal, and insulin sliding scale ordered -A1c ordered for a.m. labs Health Maintenance Disposition: [facility], [facility] DVT Prophylaxis: enoxaparin 40mg Qdaily GI Prophylaxis: none Diet: Cardiac carbohydrate consistent low Lines: Peripheral lines Code status: Full/ DNR Assessment and plan discussed with my senior resident Dr. Duran & attending physician Dr. Sorin Pinto (PGY-1)- Internal medicine resident Attending Provider Attestation/Addendum I have discussed and was present for the essential components of the history, physical examination, diagnosis, and treatment plan with the resident. I agree with the patient's care as documented by the resident and amended herein by me. Ricardo Rwoell DO. Although this document has been carefully reviewed, there may still be some phonetic and other typographical errors. These errors are purely grammatical due to imperfections in the software program and should not be construed in any way to compromise the substance of the patient's medical care during this visit.
[2024-11-04 18:45] LABS: Procalcitonin 0.16 ng/ml (0.0-0.49)
[2024-11-04] MEDS: FUROSEMIDE INJ 10 MG/ML 4ML VIAL 40 MG IVP (20:06)
[2024-11-04] MEDS: METOPROLOL SUCCINATE XL 25 MG TABCR PO (20:07)
[2024-11-04] MEDS: amLODIPine BESYLATE 5 MG TABLET PO (20:07)
[2024-11-04] MEDS: OSELTAMIVIR 75 MG CAPSULE PO (20:21)
[2024-11-04] MEDS: ACETAMINOPHEN 325 MG TABLET 650 MG PO (20:21)
[2024-11-04] MEDS: INSULIN LISPRO (AdmeLOG) 1 UNIT/0.01 ML UNIT 5 UNIT SC (21:20)
[2024-11-04] MEDS: INSULIN GLARGINE (Lantus) 5 UNIT/0.05 ML (PER 5 UNITS) 25 UNIT SC (21:22)
--- NOTE | 2024-11-04 21:36 | PC.NURSE ---
First pt contact at around 1930. Pt appearing very anxious. sever tremors. After receiving ativan. Pt immediatly stopped shaking and fell asleep. pt has been asleep since . VS stable.
--- NOTE | 2024-11-04 21:56 | PC.NURSE ---
Pts called to check on him. she was very emotional,crying and expressing her frustration with pt. pt reportedly abuses many of his medications and is verbally abusive to his . .I plan to have psychiatric social worker supervisor speak to pt and in the morning. states she is not able to care for him at home due to his out of contole behaviors.
--- NOTE | 2024-11-04 23:00 | PC.NURSE ---
report was called to mp [facility]. Pt taken to rm [id number] on monitor. pt stable.
[2024-11-04] MEDS: ATORVASTATIN CALCIUM 10 MG TABLET PO (23:35)
[2024-11-04] MEDS: hydrALAZINE HCL 10 MG TABLET PO (23:35)
[2024-11-05] VITALS (12 sets, daily range): BP systolic 120–169; BP diastolic 54–95; PULSE 57–89; RESP 15–24; TEMP 36.2–36.7; O2SAT 94–98; BMI 41.8
[2024-11-05 00:11] LABS: Respiratory Syncytial Virus Ag Negative (Negative)
[2024-11-05] MEDS: ACETAMINOPHEN 325 MG TABLET 650 MG PO ×2 (03:29→18:40)
[2024-11-05] MEDS: LEVOTHYROXINE SODIUM 25 MCG TABLET PO (05:44)
[2024-11-05 06:33] LABS: Basophils % (Auto) 0 % (0-2.5); Eosinophils % (Auto) 0 % (0-10); Hematocrit 43.3 % (36.0-46.0); Hemoglobin 14.5 g/dL (12.0-16.0); Immature Granulocytes % (Auto) 1 % (0-0); Immature Granulocytes Auto 0.05 Thou/mm3 (0.00-0.00); Lymphocytes # (Auto) 0.5 Thou/mm3 (1.0-4.8); Lymphocytes % (Auto) 7 % (10-50); Mean Corpuscular HGB Conc 33.5 g/dl (31.0-37.0); Mean Corpuscular Hemoglobin 31.7 pg (25.0-35.0); Mean Corpuscular Volume 95 fL (80-100); Monocytes # (Auto) 0.3 Thou/mm3 (0.0-0.8); Monocytes % (Auto) 5 % (0-12); Neutrophils # (Auto) 5.8 Thou/mm3 (1.8-7.7); Neutrophils % (Auto) 87 % (37-80); Nucleated Red Blood Cell % 0 /100 WBC (0); Platelet Count 292 Thou/mm3 (140-440); RDW Standard Deviation 58.4 fL (36.4-46.3); Red Blood Count 4.58 Miln/mm3 (4.00-5.20); White Blood Count 6.7 Thou/mm3 (3.6-11.0)
[2024-11-05 06:49] LABS: Alanine Aminotransferase 11 U/L (10-49); Albumin, Serum 3.5 gm/dL (3.4-4.8); Alkaline Phosphatase 313 U/L (46-116); Anion Gap 10 (7-16); Aspartate Amino Transferase 25 U/L (0-34); BUN/Creatinine Ratio 32 Ratio (12-20); Bilirubin,Total 0.5 mg/dL (0.3-1.2); Blood Urea Nitrogen 32 mg/dL (9-23); Calcium (Corrected) 9.4 mg/dL (8.5-10.1); Carbon Dioxide 27.3 mMol/L (20.0-31.0); Chloride 102 mMol/L (98-107); Cholesterol 143 mg/dL (132-200); Estimated Creatinine Clearance 68.4 mL/min (>60); Free T4 (Free Thyroxine) 1.23 ng/dL (0.89-1.76); Globulin 3.4 gm/dL (2.3-3.5); Glucose 322 mg/dL (74-106); HDL Cholesterol 47 mg/dL (40-60); LDL Cholesterol,Calculated 77 mg/dL (0-130); Magnesium 2.5 mg/dL (1.6-2.6); Osmolality,Calculated 296 (275-295); Phosphorous 4.4 mg/dL (2.4-5.1); Potassium 4.3 mMol/L (3.4-5.1); Sodium 139 mMol/L (136-145); Thyroid Stimulating Hormone 0.71 uIU/mL (0.55-4.78); Total Protein 6.9 gm/dL (5.7-8.2); Triglycerides 95 mg/dL (30-150); eGFR > 60 See Note
[2024-11-05 07:03] LABS: Glucose Estimated Average 214 mg/dL (80-131); Hemoglobin A1C 9.1 % Hgb (4.8-6.0)
[2024-11-05] MEDS: INSULIN LISPRO (AdmeLOG) 1 UNIT/0.01 ML UNIT 5 UNIT SC (07:53)
[2024-11-05] MEDS: INSULIN LISPRO (AdmeLOG) 1 UNIT/0.01 ML UNIT SC ×3 (07:54→17:38)
[2024-11-05] MEDS: ENOXAPARIN SOD INJ 40 MG/0.4 ML SYRINGE SC (09:40)
[2024-11-05] MEDS: OSELTAMIVIR 75 MG CAPSULE PO ×2 (09:41→20:13)
[2024-11-05] MEDS: INSULIN GLARGINE (Lantus) 5 UNIT/0.05 ML (PER 5 UNITS) 30 UNIT SC ×2 (09:41→20:14)
[2024-11-05] MEDS: PREGABALIN 75 MG CAPSULE PO ×3 (09:41→22:08)
[2024-11-05] MEDS: amLODIPine BESYLATE 5 MG TABLET PO (09:42)
[2024-11-05] MEDS: hydrALAZINE HCL 10 MG TABLET PO ×2 (09:51→20:15)
[2024-11-05] MEDS: FUROSEMIDE INJ 10 MG/ML 4ML VIAL 40 MG IVP (09:51)
[2024-11-05] MEDS: METOPROLOL SUCCINATE XL 25 MG TABCR PO (09:51)
--- NOTE | 2024-11-05 11:53 | PC.SS ---
Patient Nolvia Cox is a 64 Year old female admitted [facility] Influenza Covid +. SS met with patient at bedside to discuss discharge plan and review demographic information. Patient reports she lives at home with her . Patient reports her surrogate decision maker is her daughter, Patricia Jones [phone]. Patient is able to complete ADL's independently. Patient does utilize a Rollator walker to assist with ambulation. Choice of pharmacy is [facility]. PCP is Rickie Landrum. At time of discharge patient will return back home. Family will provide transportation. SS was informed by HARPER Palencia that patient's was at home and is bed bound and patient is his caregiver. SS spoke to patient about her and she informed SS that her children are following up with her and patient's is alert and oriented and able to transfer himself from the bed to the wheelchair. SS also contacted patient's daughter Patricia and she informed SS that her father is able to transfer himself and able to utilize the restroom on his own, Patient is able to prep meals for himself as well and Patricia reported her brother and herself have been in contact with patient. She informed SS that they are not able to go in the house because he has Covid and she is 9 month . SS verbalized understanding. Next of Kin: daughterPatricia Discharge plan: Home
[2024-11-05] MEDS: INSULIN LISPRO (AdmeLOG) 1 UNIT/0.01 ML UNIT 8 UNIT SC ×3 (12:02→20:14)
[2024-11-05 12:31] LABS: Cocci Serology, IgM Negative (Negative)
--- NOTE | 2024-11-05 14:57 | PC.SS ---
SS follow up note; Echo pending, discharge in 1-2 days.
--- NOTE | 2024-11-05 16:00 | ESPR_ITS ---
<Statement entered by Bruce Duran MD - 11/05/24 17:11> Patient was seen and examined at the bedside. Patient had no acute overnight events reported. Vitals were stable. Pt was sat well on RA. Labs were significant for hyperglycemia therefore basal bolus regimen was adjusteed.Will continue with tamiflu and awaiting blood cx final results although coming negative for first 24 hrs. Echo is currently pending continuing st in/out and iv diuresis.All labs and orders were reviewed. I saw and examined the patient, and I agree with current management stated by Dr Blair MD,PGY1. Plan of care was discussed with the attending physician and resident physician. Disclaimer: Despite multiple revisions, due to the dictation software being used, the document bellow may not be free of grammatical errors including phonetic/typographic errors. However, this does not deter from our commitment to providing health care in the patient's best interest in mind. Dr. Roger MD, PGY 2 Documentation for date of: 11/05/24 Subjective Subjective Interval history: No overnight events reported. Pt is seen and examined at bedside this morning. Pt has improvement of her symptoms. currently saturating 94% on 1 L oxygen via nasal cannula. Pt A1c this morning is 9 and blood sugars from last night are in the 300's, repeat finger stick this morning is 315 therefore adjustment is made to her long acting and basal insulin. Pt is continues to have a cough and some SOB but much better than yesterday. pt is unaware of her CHF status but she does see and senior partner and takes lasix daily which are resumed. Pt is requesting to resume home pregablic due to neuropathy. pt is able to tolerate oral diet. vitals are stable and labs are review and are stable with the exception of blood glucose as mentioned. Pt has no compaints. Exam Vital Signs Temp Pulse Resp BP Pulse Ox O2 Del Method O2 Flow Rate 97.5 F 78 15 163/68 H 94 L Room Air 3 11/05/24 12:11/05/24 12:11/05/24 12:11/05/24 12:11/05/24 12:11/05/24 12:11/05/24 07:49 Narrative Exam GENERAL: A&Ox3, elderly female, not in acute distress. NEURO: no focal neurological deficits HEENT: Atraumatic, Normocephalic. mucous membranes moist. Eyes open, symmetrical, & clear HEART: Normal Heart Sounds LUNGS: Clear to auscultation with no wheezing or crackles. ABDOMEN: soft, non-distended, non-tender, bowel sounds heard, no guarding or rebound tenderness SKIN: No Rash or ecchymoses, ruptured bullous wounds bilaterally on lower extremities EXTREMITIES: No edema, tenderness, able to move all 4 extremities, pedal pulses palpated Objective Labs 11/06/24 05:21 11/06/24 07:48 Labs: Laboratory Results - last 24 hr 11/04/24 11/04/24 11/04/24 16:20 17:39 22:50 WBC RBC Hgb Hct MCV MCH MCHC RDW Std Deviation Plt Count Neut % (Auto) Lymph % (Auto) Early % (Auto) Eos % (Auto) Baso % (Auto) Neut # (Auto) Lymph # (Auto) Early # (Auto) Eos # (Auto) Baso # (Auto) Immature Gran # (Auto) Absolute Nucleated RBC Immature Gran % Nucleated RBC % Sodium Potassium Chloride Carbon Dioxide Anion Gap BUN Creatinine Estim Creat Clear Calc eGFR BUN/Creatinine Ratio Glucose Estimated Ave Glu mg/dL Hemoglobin A1c Calculated Osmolality Calcium Corrected Calcium Phosphorus Magnesium Total Bilirubin AST ALT Alkaline Phosphatase Total Protein Albumin Globulin Albumin/Globulin Ratio Triglycerides Cholesterol LDL Cholesterol, Calc HDL Cholesterol Cholesterol/HDL Ratio Procalcitonin 0.16 TSH Free T4 Ur Collection Type Catheter Urine Color Yellow Urine Clarity Clear Urine pH 6.5 Ur Specific [place] 1.028 Urine Protein 3+ A Urine Glucose (UA) 4+ A Urine Ketones Negative Urine Blood 1+ A Urine Nitrite Negative Urine Bilirubin Negative Urine Urobilinogen (Auto) Negative Ur Leukocyte Esterase Negative Urine RBC 7 H Urine WBC 3 Ur Squamous Epith Cells < 1 Urine Bacteria Rare Coccidioides IgM Ab RSV Rapid Negative 11/05/24 06:00 WBC 6.7 RBC 4.58 Hgb 14.5 Hct 43.3 MCV 95 MCH 31.7 MCHC 33.5 RDW Std Deviation 58.4 H Plt Count 292 Neut % (Auto) 87 H Lymph % (Auto) 7 L Early % (Auto) 5 Eos % (Auto) 0 Baso % (Auto) 0 Neut # (Auto) 5.8 Lymph # (Auto) 0.5 L Early # (Auto) 0.3 Eos # (Auto) 0.0 Baso # (Auto) 0.0 Immature Gran # (Auto) 0.05 H Absolute Nucleated RBC 0.00 Immature Gran % 1 H Nucleated RBC % 0 Sodium 139 Potassium 4.3 D Chloride 102 Carbon Dioxide 27.3 Anion Gap 10 BUN 32 H Creatinine 1.0 Estim Creat Clear Calc 68.4 eGFR > 60 BUN/Creatinine Ratio 32 H Glucose [address] Glu mg/dL 214 H Hemoglobin A1c 9.1 H Calculated Osmolality 296 H Calcium 9.0 Corrected Calcium 9.4 Phosphorus 4.4 Magnesium 2.5 Total Bilirubin 0.5 AST 25 ALT 11 Alkaline Phosphatase 313 H D Total Protein 6.9 Albumin 3.5 Globulin 3.4 Albumin/Globulin Ratio 1.0 L Triglycerides 95 Cholesterol 143 LDL Cholesterol, Calc 77 HDL Cholesterol 47 Cholesterol/HDL Ratio 3.0 L Procalcitonin TSH 0.71 Free T4 1.23 Ur Collection Type Urine Color Urine Clarity Urine pH Ur Specific [place] Urine Protein Urine Glucose (UA) Urine Ketones Urine Blood Urine Nitrite Urine Bilirubin Urine Urobilinogen (Auto) Ur Leukocyte Esterase Urine RBC Urine WBC Ur Squamous Epith Cells Urine Bacteria Coccidioides IgM Ab Negative RSV Rapid ABG Interpretation ABG results: 11/04/24 11:03 VBG pH 7.40 VBG pCO2 44 VBG pO2 51 VBG Base Excess 2 Quality Measures Quality Measures none Advance care planning discussed with:: patient Assessment & Plan Assessment Current Active Medications: Generic Name Dose Route Start Last Admin Trade Name Freq PRN Reason Stop Dose Admin Acetaminophen 650 mg 11/05/24 15:18 Acetaminophen 325 Mg Tablet PO 12/04/24 18:18 Q6H PRN Fever >100.3 Albuterol/Ipratropium 3 ml 11/04/24 20:10 Albuterol/Ipratropium (Duoneb) Rt Sarah 3 Ml Nebu INH 12/05/24 00:59 Q6HRRT PRN SOB and Wheezing Amlodipine Besylate 5 mg 11/04/24 18:45 11/05/24 09:42 Amlodipine Besylate 5 Mg Tablet PO 12/04/24 18:44 5 mg QDAY CASH Administration Atorvastatin Calcium 10 mg 11/04/24 21:00 11/04/24 23:35 Atorvastatin Calcium 10 Mg Tablet PO 12/04/24 20:59 10 mg HS CASH Administration Dextrose 25 ml 11/04/24 18:27 Dextrose 50%-Water Inj 50 Ml Syringe IV 12/04/24 18:26 Q15MIN PRN BG 50-70 responsive npo pt Dextrose 50 ml 11/04/24 18:27 Dextrose 50%-Water Inj 50 Ml Syringe IV 12/04/24 18:26 Q15MIN PRN BG <50 OR BG <70 & pt unresponsive Enoxaparin Sodium 40 mg 11/05/24 09:00 11/05/24 09:40 Enoxaparin Sod Inj 40 Mg/0.4 Ml Syringe SC 11/19/24 08:59 40 mg QDAY CASH Administration Furosemide 40 mg 11/05/24 09:00 11/05/24 09:51 Furosemide Inj 10 Mg/Ml 4ml Vial IVP 12/05/24 08:59 40 mg DAILY CASH Administration Glucagon 1 mg 11/04/24 18:27 Glucagon Inj 1 Mg Vial IM Q15MIN PRN BG <70, and no IV access Hydralazine HCl 10 mg 11/04/24 21:00 11/05/24 09:51 Hydralazine Hcl 10 Mg Tablet PO 12/04/24 20:59 10 mg BID CASH Administration Insulin Glargine 30 unit 11/05/24 09:00 11/05/24 09:41 Insulin Glargine (Lantus) 5 Unit/0.05 Ml (Per 5 Units) SC 12/05/24 08:59 30 unit BID CASH Administration Insulin Human Lispro 0 unit 11/05/24 07:30 11/05/24 12:01 Insulin Lispro (Admelog) 1 Unit/0.01 Ml Unit SC 12/05/24 07:29 5 unit AC CASH Administration Protocol Insulin Human Lispro 8 unit 11/05/24 11:30 11/05/24 12:02 Insulin Lispro (Admelog) 1 Unit/0.01 Ml Unit SC 12/05/24 11:29 8 unit ACHS CASH Administration Levothyroxine Sodium 25 mcg 11/05/24 06:00 11/05/24 05:44 Levothyroxine Sodium 25 Mcg Tablet PO 12/05/24 05:59 25 mcg ACBR CASH Administration Metoprolol Succinate 25 mg 11/04/24 18:45 11/05/24 09:51 Metoprolol Succinate Xl 25 Mg Tabcr PO 12/04/24 18:44 25 mg QDAY CASH Administration Oseltamivir Phosphate 75 mg 11/04/24 21:00 11/05/24 09:41 Oseltamivir 75 Mg Capsule PO 11/09/24 20:59 75 mg BID CASH Administration Pregabalin 75 mg 11/05/24 08:45 11/05/24 13:40 Pregabalin 75 Mg Capsule PO 12/05/24 08:44 75 mg TID CASH Administration Plan Ms. Cox is a 64-year-old female with past medical history significant for myalgia, pemphigoid vulgaris, hypertension, hypothyroidism and type 2 diabetes presented to the ED complaining of worsening flulike symptoms, SOB and generalized weakness. #Acute hypoxic respiratory failure secondary to #Influenza positive #COVID-positive #Superimposed pneumonia #? CHF exacerbation -Patient has flulike symptoms for the past several days worsening shortness of breath, cough, body aches, weakness, and night fevers and chills -Although patient denies any previous cardiac history patient does take Lasix and metoprolol, chest x-ray findings are suggestive of heart failure and BNP is 314 -Bedside influenza A positive as well as COVID-positive, lactic acid 1.4 -Patient was recently exposed to a big crowd -Chest x-ray of moderate heart failure, consider superimposed pneumonia at the lung bases Plan: -In the ED patient is given Solu-Medrol 125 mg x 1, DuoNeb x 1 -DuoNebs as needed and supplemental oxygen as needed -Tamiflu start 11/04- -echo ordered -Lasix and statin daily #Insulin-dependent type 2 diabetes- uncontrolled #Diabetic neuropathy -A1c 9.1 -Patient's home regimen includes Januvia, Jardiance, Lantus 60 units -Started patient on Lantus 30 twice daily, lispro 8 units with each meal, and insulin sliding scale ordered -resumed home pregabalin #Pemphigoid vulgaris -Patient has ruptured bolus bilaterally on lower extremities -hold home azathioprine in the setting of influenza and Covid -Wound care ordered #Primary hypertension -On admission patient blood pressure is elevated -P.o. hydralazine is added in addition to resuming home amlodipine and metoprolol -Will consider switching patient to lisinopril as patient does have protein in the urine and has a history of diabetes #Hypothyroidism -Resumed home levothyroxine -Order TSH for a.m. labs [facility] Prophylaxis: enoxaparin 40mg Qdaily GI Prophylaxis: none Diet: Cardiac carbohydrate consistent low Lines: Peripheral lines Code status: Full/ DNR Assessment and plan discussed with my senior resident Dr. Duran & attending physician Dr. Sorin Pinto (PGY-1)- Internal medicine resident Attending Provider Attestation/Addendum I have discussed and was present for the essential components of the history, physical examination, diagnosis, and treatment plan with the resident. I agree with the patient's care as documented by the resident and amended herein by me. Ricardo Rowell, DO. Although this document has been carefully reviewed, there may still be some phonetic and other typographical errors. These errors are purely grammatical due to imperfections in the software program and should not be construed in any way to compromise the substance of the patient's medical care during this visit.
--- NOTE | 2024-11-05 19:45 | ECHO_ITS ---
Transthoracic Echo Report Ht (in): 64 Wt (lb): 244 Exam Location: Echo Lab Status: Inpatient Information Technology Manager: Kathi srivastava^^^^ Indications: Procedure Performed: BP: 140 / 70 HR: 67 Technical Quality: Very technically difficult study MEASUREMENTS (Male / Female) Normal Values 2D ECHO LV Diastolic Diameter PLAX 4.9 cm 4.2 - 5.9 / 3.9 - 5.3 cm LV Systolic Diameter PLAX 3.3 cm IVS Diastolic Thickness 0.6 cm 0.6 - 1.0 / 0.6 - 0.9 cm LVPW Diastolic Thickness 0.7 cm 0.6 - 1.0 / 0.6 - 0.9 cm LV Relative Wall Thickness 0.3 LVOT Diameter 1.5 cm Aortic Root Diameter 2.8 cm LA Systolic Diameter LX 3.8 cm 3.0 - 4.0 / 2.7 - 3.8 cm Ascending Aorta Diameter 2.3 cm DOPPLER AV Peak Velocity 149.0 cm/s AV Peak Gradient 8.9 mmHg AV Mean Gradient 6.0 mmHg AV Velocity Time Integral 38.0 cm AI Peak Velocity 167.0 cm/s AI Peak Gradient 11.2 mmHg AI Pressure Half Time 605.0 ms LVOT Peak Velocity 87.6 cm/s LVOT Peak Gradient 3.1 mmHg LVOT Velocity Time Integral 28.5 cm LVOT Cardiac Index 1470.6 cm?/min?m? AV Area Cont Eq vti 1.3 cm? AV Area Cont Eq pk 1.0 cm? MV Area PHT 4.7 cm? Mitral E Point Velocity 134.0 cm/s Mitral A Point Velocity 103.0 cm/s Mitral E to A Ratio 1.3 LV E' Lateral Velocity 8.1 cm/s Mitral E to LV E' Lateral Ratio 16.5 LV E' Septal Velocity 9.1 cm/s Mitral E to LV E' Septal Ratio 14.7 TR Peak Velocity 280.7 cm/s TR Peak Gradient 31.5 mmHg PV Peak Velocity 113.0 cm/s PV Peak Gradient 5.1 mmHg RVOT Peak Velocity 65.0 cm/s FINDINGS Left Ventricle Normal left ventricular size, wall thickness, systolic function with no obvious regional wall motion abnormalities. There is grade II diastolic dysfunction of the left ventricle (pseudonormal filling pattern). The ejection fraction is visually estimated at 55-60 %. Right Ventricle The right ventricle is normal in size and systolic function. The estimated right ventricular systolic pressure, 33 mmHg. Left Atrium The left atrium is normal by two-dimensional, color flow and Doppler imaging with no structural abnormalities, no thrombus formation present. Right Atrium The right atrium is normal by two-dimensional imaging, color flow and Doppler imaging with no structural abnormalities, no thrombus formation present. Atrial Septum The interatrial septum appears normal with no evidence of a shunt. Aorta The aorta is normal by two-dimensional, color flow and Doppler interrogation. Mitral Valve Mild mitral regurgitation.mild mitral annular calcification. Aortic Valve Aortic valve sclerosis. Moderate thickening of the aortic valve leaflets. Mild aortic valve regurgitation. Tricuspid Valve There is mild tricuspid valve regurgitation. Pulmonic Valve The pulmonic valve is not well visualized. There is no significant pulmonic valve regurgitation. Vessels The pulmonary artery appears normal. The inferior vena cava pulmonary and hepatic veins appear normal. Pericardium The pericardium is normal by two-dimensional imaging. There is no significant pericardial effusion. CONCLUSIONS indication: Hx of HF, pt Covid + LV appears normal with EF 55-60%. Diastolic Dysfunction II present. RV appears normal with RVSP 33 mmHG. MV has mild MR & MAC AOV is sclerotic with mild AI. TV has mild TR. Joni eBll (Electronically Signed) Final Date: 06 November 2024 13:32
[2024-11-05] MEDS: ATORVASTATIN CALCIUM 10 MG TABLET PO (20:13)
[2024-11-05] MEDS: BENZONATATE 100 MG CAPSULE PO (22:08)
[2024-11-06] VITALS (8 sets, daily range): BP systolic 115–185; BP diastolic 55–72; PULSE 58–89; RESP 17–18; TEMP 36.3; O2SAT 96–97
[2024-11-06] MEDS: PREGABALIN 75 MG CAPSULE PO ×2 (06:12→13:57)
[2024-11-06] MEDS: LEVOTHYROXINE SODIUM 25 MCG TABLET PO (06:12)
[2024-11-06 06:24] LABS: Basophils % (Auto) 0 % (0-2.5); Eosinophils # (Auto) 0.1 Thou/mm3 (0.0-0.5); Eosinophils % (Auto) 1 % (0-10); Hematocrit 40.8 % (36.0-46.0); Hemoglobin 13.3 g/dL (12.0-16.0); Immature Granulocytes % (Auto) 0 % (0-0); Immature Granulocytes Auto 0.03 Thou/mm3 (0.00-0.00); Lymphocytes # (Auto) 2.1 Thou/mm3 (1.0-4.8); Lymphocytes % (Auto) 18 % (10-50); Mean Corpuscular HGB Conc 32.6 g/dl (31.0-37.0); Mean Corpuscular Hemoglobin 31.4 pg (25.0-35.0); Mean Corpuscular Volume 97 fL (80-100); Monocytes # (Auto) 0.9 Thou/mm3 (0.0-0.8); Monocytes % (Auto) 8 % (0-12); Neutrophils # (Auto) 8.1 Thou/mm3 (1.8-7.7); Neutrophils % (Auto) 72 % (37-80); Nucleated Red Blood Cell % 0 /100 WBC (0); Platelet Count 292 Thou/mm3 (140-440); RDW Standard Deviation 61.1 fL (36.4-46.3); Red Blood Count 4.23 Miln/mm3 (4.00-5.20); White Blood Count 11.3 Thou/mm3 (3.6-11.0)
--- NOTE | 2024-11-06 07:51 | PC.NURSE ---
Received in morning report that lab called and said patient's blood sugar is 47. Night nurse asked lab to redraw. I checked on patient during morning report and patient did not show any signs of hypoglycemia. I checked lab values and they showed still pending on my end. Completed a bedside glucose check and it showed patients blood sugar at 51. Gave patient susana crackers, peanut butter and juice. Called Dr. Pinto. Doctor ordered to repeat a bedside finger stick after patient eats the crackers and juice and to inform her of the results.
[2024-11-06] MEDS: FUROSEMIDE INJ 10 MG/ML 4ML VIAL 40 MG IVP (08:31)
[2024-11-06] MEDS: ENOXAPARIN SOD INJ 40 MG/0.4 ML SYRINGE SC (08:31)
[2024-11-06] MEDS: OSELTAMIVIR 75 MG CAPSULE PO (08:34)
--- NOTE | 2024-11-06 08:40 | PC.NURSE ---
Patient finished carbs given and breakfast. repeat blood sugar at 0808 was 63. checked again at 0830 blood sugar 85. patient is sitting up. feeling better than before. I stayed with patient at bedside the entire time. Dr. Pinto aware.
[2024-11-06 08:46] LABS: Alanine Aminotransferase 14 U/L (10-49); Albumin, Serum 3.4 gm/dL (3.4-4.8); Albumin/Globulin Ratio 1.1 (1.2-2.2); Alkaline Phosphatase 263 U/L (46-116); Anion Gap 7 (7-16); Aspartate Amino Transferase 23 U/L (0-34); BUN/Creatinine Ratio 48 Ratio (12-20); Bilirubin,Total 0.4 mg/dL (0.3-1.2); Blood Urea Nitrogen 48 mg/dL (9-23); Calcium 9.1 mg/dL (8.3-10.6); Calcium (Corrected) 9.6 mg/dL (8.5-10.1); Carbon Dioxide 28.6 mMol/L (20.0-31.0); Chloride 104 mMol/L (98-107); Estimated Creatinine Clearance 68.4 mL/min (>60); Globulin 3.1 gm/dL (2.3-3.5); Osmolality,Calculated 289 (275-295); Potassium 3.5 mMol/L (3.4-5.1); Sodium 140 mMol/L (136-145); Total Protein 6.5 gm/dL (5.7-8.2); eGFR > 60 See Note
[2024-11-06 08:48] LABS: Glucose 42 mg/dL (74-106)
--- NOTE | 2024-11-06 10:30 | PC.NURSE ---
Completed Oxygen walk test with patient. At rest with 2 liters NC patient O2 sat is 98. Took patient off oxygen, while at rest patient 02 sat dropped down to 85. Did not walk patient without NC due to O2 sat dropping to 85 while at rest without NC.
[2024-11-06] MEDS: POTASSIUM CHLORIDE 20 mEq TABCR 40 MEQ PO (10:50)
--- NOTE | 2024-11-06 13:36 | PD.RESDS ---
Planned Discharge Date 11/06/24 DS: Providers Provider Date of admission: 11/04/24 18:19 Primary care physician: Rickie Landrum MD Admitting Provider: Nazario Rowell DO Attending Provider on Admission: Nazario Rowell DO Consults: 11/04/24 23:05 Referral Registered Dietitian Routine Comment: 11/05/24 04:09 Referral Wound Care Routine Comment: Attending Provider on DC: Ming Pinto MD Discharging Provider: Ming Pinto MD DS: Diagnosis Problem List Completed Was Problem List Reviewed/Reconciled?: Yes Hospital Course Hospital Course Hospital course: Ms. Cox is a 64-year-old female with past medical history significant for myalgia, pemphigoid vulgaris, hypertension, hypotMsKatelyn Cox is a 64-year-old female with past medical history significant for myalgia, pemphigoid vulgaris, hypertension, hypothyroidism and type 2 diabetes presented to the [facility] ED on 11/04/2024 complaining of worsening flulike symptoms, SOB and generalized weakness. Patient was found to be influenza and COVID positive. During hospitalization patient was started on Tamiflu and supplemental oxygen. Patient's oxygen requirement improved and patient was remained on 1 L of oxygen via nasal cannulla, blood and urine cultures had no growth after 48 hours and MRSA was negative. Pt is hemodynamically stable to be discharge home on supplemental oxygen. Pt is advised to self isolate at home due to COVID. Pt is discharge home to self care with augmentin for superimposed bacterial infection. Pt is advised if symptoms worsen or reoccur to promptly return to the ED. Discharge Recommendations Take amoxicilin 500 mg twice daily for 5 days to complete course of antibiotic Take amlodipine 5 mg once daily in the morning and atorvastatin 10 mg once daily at night Take Tamiflu 75 mg twice daily for 3 more days Take Tessalon 100 mg Q8 hourly as needed for cough Continue taking your home medication as prescribed Recommend holding azathioprine and follow-up with your PCP for continuation of the medication later Follow-up with PCP as outpatient within 2 weeks In case of emergency, call 911 or come back to the ED Hospitalization Diagnosis #Acute hypoxic respiratory failure secondary to #Influenza positive #COVID-positive #Superimposed pneumonia #? CHF exacerbation #Insulin-dependent type 2 diabetes- uncontrolled #Diabetic neuropathy #Pemphigoid vulgaris #Primary hypertension #Hypothyroidism Assessment and plan discussed with my attending physician Dr. Sorin Pinto (PGY-1)- Internal medicine resident Time Spent with Patient Time attestation: Total time spent providing and/or coordinating discharge services: Time spent: Greater than 30 minutes Exam Vital Signs Temp Pulse Resp BP Pulse Ox O2 Del Method O2 Flow Rate 97.3 F 89 18 185/70 H 97 Nasal Cannula 1 11/06/24 12:00 11/06/24 12:00 11/06/24 12:11/06/24 12:00 11/06/24 12:00 11/06/24 12:11/06/24 12:00 Narrative Exam GENERAL: A&Ox3, elderly female, not in acute distress. NEURO: no focal neurological deficits HEENT: Atraumatic, Normocephalic. mucous membranes moist. Eyes open, symmetrical, & clear HEART: Normal Heart Sounds LUNGS: Clear to auscultation with no wheezing or crackles. ABDOMEN: soft, non-distended, non-tender, bowel sounds heard, no guarding or rebound tenderness SKIN: No Rash or ecchymoses, ruptured bullous wounds bilaterally on lower extremities EXTREMITIES: No edema, tenderness, able to move all 4 extremities, pedal pulses palpated Discharge Plan Plan Patient Disposition: HOME (Self Care) Disposition Comment: Hospitalist to admit Care Plan Goals: Take amoxicilin 500 mg twice daily for 5 days to complete course of antibiotic Take amlodipine 5 mg once daily in the morning and atorvastatin 10 mg once daily at night Take Tamiflu 75 mg twice daily for 3 more days Take Tessalon 100 mg Q8 hourly as needed for cough Continue taking your home medication as prescribed Recommend holding azathioprine and follow-up with your PCP for continuation of the medication later Follow-up with PCP as outpatient within 2 weeks In case of emergency, call 911 or come back to the ED Prescriptions/Referrals Prescriptions/Med Rec: New amlodipine 5 mg Tablet 5 mg PO QDAY Qty: 60 0RF atorvastatin 10 mg Tablet 10 mg PO HS Qty: 60 0RF benzonatate 100 mg Capsule 100 mg PO Q8HR PRN (Reason: Cough) Qty: 90 0RF pregabalin 75 mg Capsule 75 mg PO TID Qty: 60 0RF levothyroxine 25 mcg Tablet 25 mcg PO ACBR Qty: 60 0RF oseltamivir 75 mg Capsule 75 mg PO BID 3 Days Qty: 6 0RF metoprolol succinate 25 mg Tablet Extended Release 24 Hr 25 mg PO QDAY Qty: 60 0RF amoxicillin 500 mg capsule 500 mg PO BID 5 Days Qty: 10 0RF Continued lisinopril 30 MG tablet 20 mg PO QDAY Qty: 0 Shunaglar KwikPen U-100 Insulin 100 unit/mL (3 mL) Insulin Pen 45 unit SUB-Q QDAY meclizine 50 mg tablet 50 mg PO QDAY Qty: 14 0RF furosemide [Lasix] 20 mg tablet 20 mg PO QDAY Qty: 14 0RF potassium chloride 20 mEq tablet,ER particles/crystals 20 meq PO QDAY Qty: 10 0RF promethazine 6.25 mg/5 mL syrup 6.25 mg PO TID PRN (Reason: allergy symptoms) Qty: 473 0RF Rx Instructions: 3 doses during day; last dose no later than 4 hr before bedtime Discontinued cephalexin [Keflex] 500 mg capsule 500 mg PO BID Qty: 20 0RF pregabalin [Lyrica] 100 mg Capsule 100 mg PO BID ibuprofen 800 mg tablet 800 mg PO TID PRN (Reason: pain) Qty: 30 0RF azithromycin [Zithromax Z-Gee] 250 mg tablet See Rx Instructions PO .COMPLEX Qty: 6 0RF Rx Instructions: take 500 mg today (day 1), then 250 mg for 4 days (days 2-5) ciprofloxacin HCl [Cipro] 500 mg tablet 500 mg PO BID Qty: 14 0RF sulfamethoxazole-trimethoprim [Bactrim DS] 800-160 mg tablet 1 tab PO BID Qty: 14 0RF pregabalin 75 mg capsule Patient Comments: TAKE 1 CAPSULE BY MOUTH THREE TIMES A DAY ciprofloxacin HCl [Cipro] 500 mg tablet 500 mg PO BID Qty: 10 0RF Referrals: Rikcie Landrum MD [Primary Care Provider] - Patient/Caregiver Discharge Instructions Education Materials: COVID-19 Home Care, Understanding Oxygen Therapy, COVID-19 and the Flu What's ..., Using an Oxygen Tank at Home, ED Influenza (Adult) Print Language: Croatian Stand Alone Forms: Adrianne Award Info., Patient Portal Info Letter Discharge Order Discharge Orders: Discharge (Routine); Ordered 11/06/24 Ordered By: Bruce Wasiq Quality Discharge Quality Measures VTE prophylaxis MD Attestestation MD Attestation I have discussed and was present for the essential components of the discharge history, physical examination, diagnosis, and discharge treatment plan with the resident. I agree with the patient's discharge care as documented by the resident and amended herein by me. Ricardo Rowell DO. The patient understood all discharge instructions, all questions were answered satisfactorily. The patient was instructed to return to the Emergency Department is symptoms worsened or persisted. Patient was stable, afebrile, tolerating p.o. intake and ambulatory at time of discharge home. Although this document has been carefully reviewed, there may still be some phonetic and other typographical errors. These errors are purely grammatical due to imperfections in the software program and should not be construed in any way to compromise the substance of the patient's medical care during this visit. Graphical errors. These errors are purely grammatical due to imperfections in the software program and should not be construed in any way to compromise the substance of the patient's medical care during this visit.
[2024-11-06 14:00] LABS: Cocci Serology, IgG Negative (Negative)
--- NOTE | 2024-11-06 15:08 | PC.SS ---
To secure a safe discharge for the pt home oxygen is needed. The pt is mobile within the home and will need continuous, portable O2 via nasal cannula. Pt is discharged in a chronic stable state and has been treated optimally and has other respiratory needs. ?Oxygen has been ordered due to shortness of breath due to COVID
--- NOTE | 2024-11-06 15:59 | PC.SS ---
SS sent over uploaded paperwork via [employer] SS confirmed dispatch of O2; SS spoke with nurse letting them know of arrival SS provided update to nurse providing plan for [facility] SS learned pt will need O2 upon discharge; SS reached out to [facility] SS met pt bedside and provided medicare information; pt was alert and oriented x4
== END 2024-11-06 16:44 | disposition home or self-care (01) | DRG 177 ==
LOC: SERX 16:57 → SERHOLD 19:03 → S3SX 22:32
PROVIDERS: Student in an Organized Health Care Education/Training Program; Admitting Provider Student in an Organized Health Care Education/Training Program; Emergency Provider Emergency Medicine; PCP Family Medicine; Visit Provider Student in an Organized Health Care Education/Training Program
DX: U07.1 COVID-19 (principal); J10.08 Influenza due to other identified influenza virus with other specified pneumonia; J96.01 Acute respiratory failure with hypoxia; J12.82 Pneumonia due to coronavirus disease 2019; L12.9 Pemphigoid, unspecified; L10.9 Pemphigus, unspecified; I11.0 Hypertensive heart disease with heart failure; E11.40 Type 2 diabetes mellitus with diabetic neuropathy, unspecified; I50.9 Heart failure, unspecified; E11.65 Type 2 diabetes mellitus with hyperglycemia; M79.10 Myalgia, unspecified site; E03.9 Hypothyroidism, unspecified; Z79.4 Long term (current) use of insulin; Z66 Do not resuscitate; Z90.710 Acquired absence of both cervix and uterus; Z79.899 Other long term (current) drug therapy; Z88.1 Allergy status to other antibiotic agents
CPT/HCPCS: 36415; 71045; 80053; 80061; 81001; 82803; 83036; 83605; 83735; 83880; 84100; 84145; 84439; 84443; 84484; 85025; 86331; 86635; 87040; 87081; 87086; 87400; 87634; 87651; 87811; 93005; 93225; 93306; 94640; 96372; 96374; 96375; 99285; J1650; J1815; J1940; J2919; A9270

== ENCOUNTER → 2025-01-25 | Outpatient (CLI) | payer MEDICARE, SELFPAY | END | disposition home or self-care (01) | PROVIDERS: PCP Family Medicine; Referring Provider Family Medicine; Visit Provider Student in an Organized Health Care Education/Training Program | DX: E11.621 Type 2 diabetes mellitus with foot ulcer (principal); L97.822 Non-pressure chronic ulcer of other part of left lower leg with fat layer exposed; L97.812 Non-pressure chronic ulcer of other part of right lower leg with fat layer exposed; Z79.4 Long term (current) use of insulin; E66.9 Obesity, unspecified; E03.9 Hypothyroidism, unspecified; Z79.84 Long term (current) use of oral hypoglycemic drugs; E11.40 Type 2 diabetes mellitus with diabetic neuropathy, unspecified; F41.9 Anxiety disorder, unspecified; I50.9 Heart failure, unspecified; I10 Essential (primary) hypertension | CPT/HCPCS: 97597; 97598 ×8; 17250; 99213; A9270; G0463 ==

== ENCOUNTER → 2025-01-28 | Outpatient (CLI) | payer MEDICARE, SELFPAY | END | disposition home or self-care (01) | PROVIDERS: PCP Family Medicine; Referring Provider Family Medicine; Visit Provider Physician Assistant | DX: E11.621 Type 2 diabetes mellitus with foot ulcer (principal); L97.822 Non-pressure chronic ulcer of other part of left lower leg with fat layer exposed; L97.812 Non-pressure chronic ulcer of other part of right lower leg with fat layer exposed; Z79.4 Long term (current) use of insulin; E66.9 Obesity, unspecified; E03.9 Hypothyroidism, unspecified; Z79.84 Long term (current) use of oral hypoglycemic drugs; E11.40 Type 2 diabetes mellitus with diabetic neuropathy, unspecified; F41.9 Anxiety disorder, unspecified; I50.9 Heart failure, unspecified; I10 Essential (primary) hypertension | CPT/HCPCS: 29580 ==

== ENCOUNTER 2025-01-30 13:28 | Inpatient (IN) | payer MEDICARE, SELFPAY ==
[2025-01-30 13:29] VITALS: BMI 41.1
[2025-01-30 13:42] VITALS: BP 156/64; PULSE 58; RESP 18; TEMP 36.4; O2SAT 93
--- NOTE | 2025-01-30 13:52 | XR_ITS ---
Examination: PA lateral chest 2 views TECHNIQUE: Upright PA and lateral chest 2 views Date and time: January 30, 2025 1406 hours INDICATIONS: Shortness of breath today. FINDINGS: Mild CHF Mild enlargement cardiac contour. Prominent vascular congestion with bilateral septal edema Significant osteopenia IMPRESSION: Mild CHF
--- NOTE | 2025-01-30 13:52 | EKG_ITS ---
[facility] Test Date: 2025-01-30 Pat Name: SOLE HENDRICKSON Department: Room: - Gender: Female Payroll Examiner: : 1960 Requested By: Hodan Andrade Order Number: [id number] Reading MD: Hodan Andrade Measurements Intervals [place] Rate: 59 P: 10 OK: 142 QRS: 2 QRSD: 102 T: 42 QT: 445 QTc: 443 Interpretive Statements SINUS BRADYCARDIA Compared to ECG 11/04/2024 12:04:00 Sinus rhythm no longer present T-wave abnormality no longer present /store/S0/[id number].pdf
--- NOTE | 2025-01-30 13:53 | PD.EDRME ---
Rapid Medical Screening [facility] Arrival date/time: 01/30/25 13:28 This is a 64-year-old female that comes into the emergency room with complaints of weakness. Patient states that last night he was she was also having some shortness of breath. Patient states that she has chronic diarrhea and this is normal for her. Patient states that last night she started having blood in her either her stool or her urine she was not sure what was coming from. Patient has a history of high blood pressure, hyperlipidemia, diabetes hypothyroidism. Patient denies fever or chills. Patient denies nausea vomiting but complains of abdominal pain. Patient denies chest pain. Patient reports that she used to be on oxygen therapy but she is no longer on it. I have greeted and performed a focused initial assessment of this patient. Initial appropriate labs ordered at this time. A comprehensive ED assessment and evaluation of the patient and analysis of all test and completion of medical decision making process will be conducted by additional ED provider. Chief Complaint: Weakness Time Seen by Provider: 01/30/25 13:37 Vital signs: Vital Signs Temperature 97.6 F 01/30/25 13:42 Pulse Rate 58 L 01/30/25 13:42 Respiratory Rate 18 01/30/25 13:42 Blood Pressure 156/64 H 01/30/25 13:42 Pulse Oximetry (%) 93 L 01/30/25 13:42 Oxygen Delivery Method Room Air 01/30/25 13:42
[2025-01-30 14:18] LABS: Basophils # (Auto) 0.1 Thou/mm3 (0.0-0.2); Basophils % (Auto) 1 % (0-2.5); Eosinophils # (Auto) 0.1 Thou/mm3 (0.0-0.5); Eosinophils % (Auto) 1 % (0-10); Hematocrit 41.9 % (36.0-46.0); Hemoglobin 13.9 g/dL (12.0-16.0); Immature Granulocytes % (Auto) 0 % (0-0); Immature Granulocytes Auto 0.02 Thou/mm3 (0.00-0.00); Lymphocytes # (Auto) 0.8 Thou/mm3 (1.0-4.8); Lymphocytes % (Auto) 10 % (10-50); Mean Corpuscular HGB Conc 33.2 g/dl (31.0-37.0); Mean Corpuscular Hemoglobin 30.8 pg (25.0-35.0); Mean Corpuscular Volume 93 fL (80-100); Monocytes # (Auto) 0.4 Thou/mm3 (0.0-0.8); Monocytes % (Auto) 5 % (0-12); Neutrophils # (Auto) 6.5 Thou/mm3 (1.8-7.7); Neutrophils % (Auto) 83 % (37-80); Nucleated Red Blood Cell % 0 /100 WBC (0); Platelet Count 254 Thou/mm3 (140-440); RDW Standard Deviation 62.1 fL (36.4-46.3); Red Blood Count 4.52 Miln/mm3 (4.00-5.20); White Blood Count 7.9 Thou/mm3 (3.6-11.0)
[2025-01-30 14:30] LABS: B-Type Natriuretic Peptide 116 pg/mL (0-100)
[2025-01-30 14:41] LABS: Alanine Aminotransferase 9 U/L (10-49); Albumin, Serum 3.3 gm/dL (3.4-4.8); Albumin/Globulin Ratio 1.2 (1.2-2.2); Alkaline Phosphatase 253 U/L (46-116); Anion Gap 8 (7-16); Aspartate Amino Transferase 25 U/L (0-34); BUN/Creatinine Ratio 25 Ratio (12-20); Bilirubin,Total 0.7 mg/dL (0.3-1.2); Blood Urea Nitrogen 27 mg/dL (9-23); Calcium 8.3 mg/dL (8.3-10.6); Calcium (Corrected) 8.9 mg/dL (8.5-10.1); Carbon Dioxide 29.9 mMol/L (20.0-31.0); Chloride 108 mMol/L (98-107); Creatinine (Component) 1.1 mg/dL (0.6-1.3); Estimated Creatinine Clearance 61.5 mL/min (>60); Globulin 2.8 gm/dL (2.3-3.5); Glucose 137 mg/dL (74-106); Osmolality,Calculated 297 (275-295); Potassium 3.9 mMol/L (3.4-5.1); Sodium 146 mMol/L (136-145); Total Protein 6.1 gm/dL (5.7-8.2); Troponin I < 0.020 ng/mL (0.0-0.045); eGFR 56 See Note
[2025-01-30 14:51] LABS: INR 1.1 (0.9-1.3)
[2025-01-30 15:43] LABS: Collection Type, Urine Voided
[2025-01-30 15:49] LABS: Bilirubin,Urine Negative (Negative); Blood,Urine 2+ (Negative); Clarity,Urine Clear (Clear/Hazy); Color,Urine Yellow (Lt Yel-Yel); Culture Indicated,Urine Not Indicated; Glucose, Urine 1+ (Negative); Hyaline Casts,Urine < 1 /hpf (0-1); Ketones,Urine Negative (Negative); Leukocyte Esterase,Urine Negative (Negative); Nitrite,Urine Negative (Negative); Protein,Urine 3+ (Neg - Trace); RBC,Urine 10 /hpf (0-3); Squamous Epithelial Cell,Urine 2 /hpf (0-5); Urobilinogen,Urine Negative mg/dL (0.0-1.0); WBC,Urine 4 /hpf (0-5)
--- NOTE | 2025-01-30 17:44 | PD.EDRME ---
Rapid Medical Screening Exam [facility] Arrival date/time: 01/30/25 13:28 01/30/25 13:28 This is a 64-year-old female that comes into the emergency room with complaints of weakness. Patient states that last night he was she was also having some shortness of breath. Patient states that she has chronic diarrhea and this is normal for her. Patient states that last night she started having blood in her either her stool or her urine she was not sure what was coming from. Patient has a history of high blood pressure, hyperlipidemia, diabetes hypothyroidism. Patient denies fever or chills. Patient denies nausea vomiting but complains of abdominal pain. Patient denies chest pain. Patient reports that she used to be on oxygen therapy but she is no longer on it. 1744 saw patient again and patient c/o of diffuse abdominal pain and back pain that was worst then whne she came in. I have greeted and performed a focused initial assessment of this patient. Initial appropriate labs ordered at this time. A comprehensive ED assessment and evaluation of the patient and analysis of all test and completion of medical decision making process will be conducted by additional ED provider. Chief Complaint: Weakness Time Seen by Provider: 01/30/25 13:37 Vital signs: Vital Signs Temperature 97.6 F 01/30/25 13:42 Pulse Rate 58 L 01/30/25 13:42 Respiratory Rate 18 01/30/25 13:42 Blood Pressure 156/64 H 01/30/25 13:42 Pulse Oximetry (%) 93 L 01/30/25 13:42 Oxygen Delivery Method Room Air 01/30/25 13:42 RME Narrative: 01/30/25 13:28 This is a 64-year-old female that comes into the emergency room with complaints of weakness. Patient states that last night he was she was also having some shortness of breath. Patient states that she has chronic diarrhea and this is normal for her. Patient states that last night she started having blood in her either her stool or her urine she was not sure what was coming from. Patient has a history of high blood pressure, hyperlipidemia, diabetes hypothyroidism. Patient denies fever or chills. Patient denies nausea vomiting but complains of abdominal pain. Patient denies chest pain. Patient reports that she used to be on oxygen therapy but she is no longer on it. I have greeted and performed a focused initial assessment of this patient. Initial appropriate labs ordered at this time. A comprehensive ED assessment and evaluation of the patient and analysis of all test and completion of medical decision making process will be conducted by additional ED provider.
--- NOTE | 2025-01-30 17:46 | XR_ITS ---
Examination: CT abdomen with intravenous contrast CT pelvis with intravenous contrast 2-D coronal reconstructions 2-D sagittal reconstructions Date and time of exam:January 30, 2025, 1828 hours Comparison September 23, 2024. INDICATIONS: Mid abdominal pain several days bloody stools CTDI: vol (mGy) 28.2 DLP: (mGycm) 1437 Technique: Multiple axial sections of the abdomen and pelvis have been obtained. 64 slice high-resolution scanner used. 3 mm axial sections have been obtained, post intravenous injection of 60 cc Isovue 370 2-D sagittal, coronal reconstructions obtained. Low dose protocols were performed. One or more of the following dose reduction techniques were used; automated exposure control, adjustment of the mA and/or KV according to patient size, use of iterative reconstruction technique. Findings: Mild bilateral pleural effusions The liver is irregular in contour with fatty infiltration Spleen is not enlarged Absent gallbladder No pancreatic or adrenal mass Anasarca No hydronephrosis Aorta normal size No bowel obstruction Normal appendix No diverticulitis Urinary bladder is intact No pelvic mass Absent uterus Advanced disc narrowing L4-L5, L5-S1 with laminectomy at the lower 3 lumbar levels IMPRESSION: Primary hepatocellular disease versus cirrhosis Anasarca No hydronephrosis Normal appendix No bowel obstruction Colonic diverticulosis, no diverticulitis
[2025-01-30 18:11] VITALS: BP 153/73; PULSE 64; RESP 19; TEMP 36.3; O2SAT 98
[2025-01-30 18:13] VITALS: PULSE 63; RESP 18; RESP 89; O2SAT 98
--- NOTE | 2025-01-30 19:47 | PC.NURSE ---
Patient OOB up to BR with assistance. Patient had BM no blood noted.
--- NOTE | 2025-01-30 20:52 | PC.NURSE ---
assisted pt up to bathroom where she started to have an accident. assisted pt with clean up and back to bed where she felt the urge to go again. offered bsc where pt agreed and assisted her up to bsc and back to bed when finished.
--- NOTE | 2025-01-30 23:03 | PD.EDWEAK ---
ED Weakness RME/HPI General Chief complaint: Weakness Stated complaint: WEAKNESS WITH BLOODY STOOL Time Seen by Provider: 01/30/25 13:37 Arrival date/time: 01/30/25 13:28 64-year-old female presents to the ED with a complaint of weakness and abdominal pain secondary to chronic diarrhea. She noticed last night, while wiping after having a bowel movement, blood on the toilet paper. She is not sure if it came from her stool or her urine. She denies any fever or chills, nausea or vomiting but does complain of mid abdominal pain as well as an approximate 30 pound weight gain in the past 3 months. RME / HPI RME / HPI Narrative: 01/30/25 13:28 This is a 64-year-old female that comes into the emergency room with complaints of weakness. Patient states that last night he was she was also having some shortness of breath. Patient states that she has chronic diarrhea and this is normal for her. Patient states that last night she started having blood in her either her stool or her urine she was not sure what was coming from. Patient has a history of high blood pressure, hyperlipidemia, diabetes hypothyroidism. Patient denies fever or chills. Patient denies nausea vomiting but complains of abdominal pain. Patient denies chest pain. Patient reports that she used to be on oxygen therapy but she is no longer on it. I have greeted and performed a focused initial assessment of this patient. Initial appropriate labs ordered at this time. A comprehensive ED assessment and evaluation of the patient and analysis of all test and completion of medical decision making process will be conducted by additional ED provider. Related Data Home Medications ?Medication ?Instructions ?Recorded ?Confirmed lisinopril 30 mg tablet 20 mg PO QDAY #0 tabs 10/07/14 06/17/20 insulin glargine 100 unit/mL (3 45 unit subcut QDAY 03/06/18 06/17/20 mL) subcutaneous pen (Basaglar KwikPen U-100 Insulin) Previous Rx's ?Medication ?Instructions ?Recorded meclizine 50 mg tablet 50 mg PO QDAY #14 tabs 09/21/23 furosemide 20 mg tablet (Lasix) 20 mg PO QDAY #14 tabs 11/05/23 potassium chloride 20 mEq 20 meq PO QDAY #10 tabs 11/05/23 tablet,extended release(part/cryst) promethazine 6.25 mg/5 mL oral 6.25 mg (5 mL) PO TID PRN allergy 02/16/24 syrup symptoms #473 mL amlodipine 5 mg tablet 5 mg PO QDAY #60 tabs 11/06/24 atorvastatin 10 mg tablet 10 mg PO HS #60 tabs 11/06/24 benzonatate 100 mg capsule 100 mg PO Q8HR PRN Cough #90 caps 11/06/24 levothyroxine 25 mcg tablet 25 mcg PO ACBR #60 tabs 11/06/24 metoprolol succinate 25 mg 25 mg PO QDAY #60 tabs 11/06/24 tablet,extended release 24 hr pregabalin 75 mg capsule 75 mg PO TID #60 caps 11/06/24 Allergies Allergy/AdvReac Type Severity Reaction Status Date / Time vancomycin Allergy Severe HEART Verified 01/30/25 13:32 PALPITATION, CONFUSION, STOMACH PAIN Review of Systems Review of Systems Systems Reviewed: All systems reviewed, normal except as documented Past Medical History Past Medical History NEUROLOGIC: Negative Neurological Disorders or Seizures CARDIAC: Positive Cardiac Disorders (CHF) and Hypertension; Negative Congestive Heart Failure RESPIRATORY: Negative Chronic Obstructive Pulmonary Disease (COPD) or Asthma GASTROINTESTINAL: Positive Gastrointestinal Disorders GENITOURINARY: Negative Renal Disease MUSCULOSKELETAL: Positive Musculoskeletal Disorders ENDOCRINE: Positive Endocrine Disorders, Diabetes Mellitus Type 2 and Hypothyroidism; Negative Diabetes Mellitus Type 1 HEMATOLOGIC: Negative Sickle Cell Disease OTHER HISTORY: Positive Falls; Negative Blood Transfusions or Anesthesia Reactions Family History FAMILY HISTORY: Negative Family Gastrointestinal Problems Surgical History SURGICAL: Positive Bowel Surgery and Hysterectomy Social History SMOKING STATUS: Never smoker SECOND HAND EXPOSURE: No SUBSTANCE USE: does not use ED Exam Narrative Physical exam: Alert and oriented 64-year-old female, no acute distress, laying on gurney, no acute respiratory distress. Neck is supple, trachea midline, normal range of motion, lungs are clear, no respiratory distress, no wheezes noting. Cardiovascular regular rate and rhythm with normal heart sounds. Abdomen is soft, obese with mild generalized tenderness. No rebound or guarding. No CVA tenderness is noted. Skin is warm, normal color and dry. Right lower extremity with pemphigus vulgaris. Left lower extremity wrapped in Coban. General General appearance: Present alert and in no apparent distress Head Head exam: Present atraumatic and normal inspection Eye Eye exam: Present normal appearance; Absent scleral icterus or conjunctival injection ENT ENT exam: Present normal exam Neck Neck exam: Present normal inspection and trachea midline Chest Chest inspection: Present normal inspection and symmetric chest wall rise; Absent tenderness Respiratory Respiratory exam: Present normal lung sounds bilaterally; Absent respiratory distress or wheezes Cardiovascular Cardiovascular exam: Present regular rate, normal rhythm and normal heart sounds Abdominal Exam Abdominal exam: Present soft, distention, tenderness (mild generalized), normal bowel sounds and incision (Multiple healed surgical incisions.); Absent guarding, rebound or rigidity Abdominal tenderness: Present epigastrium (periumbilical) Rectal Exam Rectal exam: Present deferred Extremities Exam Extremities exam: Present normal inspection and other (pemphigus vulgaris noted to RLE. LLE wrapped in Coban.) Back Exam Back exam: Present full ROM; Absent CVA tenderness (R), CVA tenderness (L), muscle spasm, paraspinal tenderness or vertebral tenderness Neurological Exam Neurological exam: Present alert and oriented X3 Psychiatric Psychiatric exam: Present normal affect and normal mood Skin Skin exam: Present warm, dry and normal color Course Course Course Narrative: 64-year-old female presents to the ED with a complaint of weakness and abdominal pain secondary to chronic diarrhea. She noticed last night, while wiping after having a bowel movement, blood on the toilet paper. She is not sure if it came from her stool or her urine. She denies any fever or chills, nausea or vomiting but does complain of mid abdominal pain as well as an approximate 30 pound weight gain in the past 3 months. Patient has a history of high blood pressure, hyperlipidemia, diabetes hypothyroidism. Patient denies chest pain. Alert and oriented 64-year-old female, no acute distress, laying on gurney, no acute respiratory distress. Blood pressure 156/64, pulse 58, respirations 18 non-labored, temperature 97.6, O2 sat 93% on room air. Neck is supple, trachea midline, normal range of motion, lungs are clear, no respiratory distress, no wheezes noting. Cardiovascular regular rate and rhythm with normal heart sounds. Abdomen is soft, obese with mild generalized tenderness. No rebound or guarding. No CVA tenderness is noted. Skin is warm, normal color and dry. Right lower extremity with pemphigus vulgaris. Left lower extremity wrapped in Coban. Labs reveal normal white count of 7.9, normal H&H, normal platelets. Coags are normal. Sodium and chloride are minimally elevated at 146/108, normal potassium of 3.9, mild elevation of BUN 27. eGFR 56. Glucose elevated at 137, elevated alk phos is noted at 253. Troponin is normal at less than 0.020, BNP is mildly elevated at 116. Albumin is minimally low at 3.3. Urinalysis reveals clear yellow urine with a specific gravity 1.020, 3+ protein, 1+ glucose, 2+ blood, 10 RBCs, 4 WBCs, 2 squamous epithelial cells and no bacteria. CT Abd/Pel: Findings: Mild bilateral pleural effusions The liver is irregular in contour with fatty infiltration Spleen is not enlarged Absent gallbladder No pancreatic or adrenal mass Anasarca No hydronephrosis Aorta normal size No bowel obstruction Normal appendix No diverticulitis Urinary bladder is intact No pelvic mass Absent uterus Advanced disc narrowing L4-L5, L5-S1 with laminectomy at the lower 3 lumbar levels IMPRESSION: Primary hepatocellular disease versus cirrhosis *new since CT of 10/01/2024 Anasarca *new since CT of 10/01/2024 No hydronephrosis Normal appendix No bowel obstruction Colonic diverticulosis, no diverticulitis Quality Measures none Orders Category Date Time Status CT Screening NOW Care 01/30/25 17:46 Active EKG (ED ONLY) *Do not use* NOW Care 01/30/25 13:52 Completed Occult Blood,Stool (Nursing) NOW Care 01/30/25 20:[address] abdomen pelvis w con Stat Exams 01/30/25 17:46 Completed EKG (ED Only) Stat Exams 01/30/25 13:52 Draft XR chest 2V Stat Exams 01/30/25 13:52 Completed BNP [B-Type Natriuretic Peptide] Stat Lab 01/30/25 14:03 Completed CBC Stat Lab 01/30/25 14:03 Completed Comprehensive Metabolic Panel Stat Lab 01/30/25 14:03 Completed PT [Prothrombin Time with INR] Stat Lab 01/30/25 14:03 Completed Troponin I Stat Lab 01/30/25 14:03 Completed Urinalysis, C/S if Indicated Stat Lab 01/30/25 15:00 Completed cefTRIAXone/D5w 1gm IV premix [Rocephin/D5w 1gm IV Med 01/30/25 23:27 Discontinued premix] 1 gm in 50 ml IV X1 Reevaluation(s) Reevaluation #1: Resting comfortably on gurney. Time: 22:25 Reevaluation #2: Resting comfortably on gurney. Time: 00:38 Vital Signs Vital signs: Vital Signs Temperature 97.6 F 01/30/25 13:42 Pulse Rate 58 L 01/30/25 13:42 Respiratory Rate 18 01/30/25 13:42 Blood Pressure 156/64 H 01/30/25 13:42 Pulse Oximetry (%) 93 L 01/30/25 13:42 Oxygen Delivery Method Room Air 01/30/25 13:42 Weakness MDM Narrative MDM Narrative:: 64-year-old female presents to the ED with a complaint of weakness and abdominal pain secondary to chronic diarrhea. She noticed last night, while wiping after having a bowel movement, blood on the toilet paper. She is not sure if it came from her stool or her urine. She denies any fever or chills, nausea or vomiting but does complain of mid abdominal pain as well as an approximate 30 pound weight gain in the past 3 months. Patient has a history of high blood pressure, hyperlipidemia, diabetes hypothyroidism. Patient denies chest pain. Alert and oriented 64-year-old female, no acute distress, laying on gurney, no acute respiratory distress. Neck is supple, trachea midline, normal range of motion, lungs are clear, no respiratory distress, no wheezes noting. Cardiovascular regular rate and rhythm with normal heart sounds. Abdomen is soft, obese with mild generalized tenderness. No rebound or guarding. No CVA tenderness is noted. Skin is warm, normal color and dry. Right lower extremity with pemphigus vulgaris. Left lower extremity wrapped in Coban. Labs reveal normal white count of 7.9, normal H&H, normal platelets. Coags were normal. Chemistry panel reveals a minimally elevated sodium and chloride of 146/108 with a normal potassium of 3.9, normal CO2 of 29.9 and a normal gap of 8. BUN is mildly elevated at 27 with a normal creatinine of 1.1 and EGFR of 56. Glucoses elevated at 137 AST and ALT are normal. Alk phos is elevated at 253. Troponin is less than 0.020. BNP is elevated at 116 and albumin is minimally low at 3.3. Urinalysis reveals 3+ urine with 1+ glucose, 2+ blood, 10 RBCs, 4 WBCs, 2 epithelial cells and no bacteria. Stool for occult blood is Negative. CT Abd/Pelvis: IMPRESSION: Primary hepatocellular disease versus cirrhosis Anasarca No hydronephrosis Normal appendix No bowel obstruction Colonic diverticulosis, no diverticulitis Patient data External records reviewed:: [facility] previous records Clinical information provided by:: patient and family Social determinants that could affect healthcare access:: none Patient has the following chronic illnesses:: Hypertension, diabetes, hypothyroidism, reactive airway disease, CHF, diverticulosis and history of urinary tract infection. How is presenting disease/condition affected by chronic disease/condition?: exacerbated by Evaluation data The following diagnostics were reviewed and interpreted by me:: lab results and radiology exam(s) Lab and/or radiology exams considered but not ordered:: N/A Interpretation Summary: Labs reveal normal white count of 7.9, normal H&H, normal platelets. Coags were normal. Chemistry panel reveals a minimally elevated sodium and chloride of 146/108 with a normal potassium of 3.9, normal CO2 of 29.9 and a normal gap of 8. BUN is mildly elevated at 27 with a normal creatinine of 1.1 and EGFR of 56. Glucoses elevated at 137 AST and ALT are normal. Alk phos is elevated at 253. Troponin is less than 0.020. BNP is elevated at 116 and albumin is minimally low at 3.3. Urinalysis reveals 3+ urine with 1+ glucose, 2+ blood, 10 RBCs, 4 WBCs, 2 epithelial cells and no bacteria. CT Abd/Pelvis: IMPRESSION: Primary hepatocellular disease versus cirrhosis Anasarca No hydronephrosis Normal appendix No bowel obstruction Colonic diverticulosis, no diverticulitis Medications / Prescriptions Medications or Prescriptions considered but not ordered:: N/A Medication administrations:: Medication Administration History Discontinued Medications Ceftriaxone Sodium/Dextrose (Rocephin/D5w 1gm Iv Premix) 1 gm in 50 mls @ 100 mls/hr IV X1 ONE Stop: 01/30/25 23:56 Last Infusion: 01/31/25 00:17 Dose: Infused Documented By: Admin: 01/30/25 23:45 Dose: 100 mls/hr Documented By: CVL Ceftriaxone. Consultations Consultation(s) initiated? (list below): No Diagnosis Weakness Differential Diagnosis: acute myocardial infarction, anemia, hypoglycemia, sepsis, dehydration and other (Pyelonephritis, GI bleed) Most likely diagnosis given after review of the tests above:: Pyelonephritis, Abdominal pain secondary to Cirrhosis, Anasarca Admission Indicated Admission indicated?: not indicated Admission Request Was there a request for admission?: No Disposition Plan Disposition Plan: Discharge Discharge Attestation Discharge Attestation: The patient and all family members were given an opportunity to ask questions and understood the discharge instructions. Discharge instructions specifically effects, indications for sooner follow up or return to the emergency department, and the expected course of current diagnosis. Patient condition: Stable Discharge Plan Plan Patient Disposition: Admit Acute Care w/in Hospital Discharge Disposition comment: Stable and improved Prescriptions/Referrals Prescriptions/Med Rec: No Action lisinopril 30 MG tablet 20 mg PO QDAY Qty: 0 Basaglar KwikPen U-100 Insulin 100 unit/mL (3 mL) Insulin Pen 45 unit SUB-Q QDAY meclizine 50 mg tablet 50 mg PO QDAY Qty: 14 0RF furosemide [Lasix] 20 mg tablet 20 mg PO QDAY Qty: 14 0RF potassium chloride 20 mEq tablet,ER particles/crystals 20 meq PO QDAY Qty: 10 0RF amlodipine 5 mg Tablet 5 mg PO QDAY Qty: 60 0RF atorvastatin 10 mg Tablet 10 mg PO HS Qty: 60 0RF benzonatate 100 mg Capsule 100 mg PO Q8HR PRN (Reason: Cough) Qty: 90 0RF pregabalin 75 mg Capsule 75 mg PO TID Qty: 60 0RF levothyroxine 25 mcg Tablet 25 mcg PO ACBR Qty: 60 0RF metoprolol succinate 25 mg Tablet Extended Release 24 Hr 25 mg PO QDAY Qty: 60 0RF promethazine 6.25 mg/5 mL syrup 6.25 mg PO TID PRN (Reason: allergy symptoms) Qty: 473 0RF Rx Instructions: 3 doses during day; last dose no later than 4 hr before bedtime Referrals: Gurmeet Cannon MD [Physician] - In 1 week (Contact Dr. Cannon's office Friday to schedule an appointment for follow-up for further workup and evaluation of the possible cirrhosis and anasarca.) No Primary/Family,Physician [Primary Care Provider] - In 1 week Problem List Clinical Impression: Cirrhosis of liver without mention of alcohol, Anasarca, Abdominal pain, chronic, generalized, Chronic diarrhea of unknown origin Patient/Caregiver Discharge Instructions Education Materials: Abdominal Pain, Understanding Colitis, ED Cirrhosis Additional Instructions: Contact Dr. Cannon's office Friday morning for a follow-up appointment for further workup and evaluation. Follow-up with your primary care physician in 24 to 48 hours. Return to the ED for any new or worsening symptoms. Print Language: Frisian Stand Alone Forms: Adrianne Award Info., Patient Portal Info Letter PA/COMPUTER SOFTWARE ENGINEER Supervising Physician PA/COMPUTER SOFTWARE ENGINEER Supervising Physician: Dr. Navarrete
[2025-01-30] MEDS: cefTRIAXone/D5w 1gm IV premix 1 GM/50 ML BAG IV (23:45)
[2025-01-30 23:47] VITALS: BP 146/51; PULSE 61; RESP 17; O2SAT 97
[2025-01-31] VITALS (13 sets, daily range): BP systolic 134–175; BP diastolic 56–87; PULSE 56–76; RESP 14–89; TEMP 36.1–36.8; O2SAT 95–99; BMI 41.2
--- NOTE | 2025-01-31 00:54 | PD.EDADDENDU ---
Emergency Room Addendum Addendum Narrative: I went and evaluated the patient at bedside. I disagree with the PA's decision to discharge the patient home. Patient is a 64yo female with a history of DM, HTN, myalgia, pemphigoid vulgaris, hypothyroidism presents to the ED for a chief complaint of generalized weakness. Patient states she started having bright red blood when wiping after she had a bowel movement. Patient denies any history of hemorrhoids. Patient states she's had abdominal pain for months , reporting it does not resolve, and also has chronic diarrhea that has gotten worse over the last few days. Patient states she has gained 30-40 pounds over the last 3 months and has followed-up with her PCP at [facility] without any diagnosis. She endorses having shortness of breath that worsens when she lies flat and on exertion. Patient notes she does have trouble ambulating. She is on Lasix 40mg once a day, which she has been taking. On exam, patient has 2+ pitting edema to her bilateral lower extremities with 1+ pitting edema up to her bilateral thighs and anterior abdominal wall. Will consult an admission to the hospitalist. At 0056, I discussed case with the resident physician, attending Dr. Bonilla from Hospitalist service regarding admission. Discussed patients ED course, exam findings, labs, and radiology results. The Hospitalist agrees to accept the patient for admission. Diagnoses: generalized weakness, cirrhosis, anasarca, chronic diarrhea, hypoalbuminemia
[2025-01-31] MEDS: FUROSEMIDE INJ 10 MG/ML 4ML VIAL 80 MG IVP (01:08)
--- NOTE | 2025-01-31 01:35 | ESHP_ITS ---
Documentation for date of: 01/31/25 HPI History of Present Illness Chief complaint: Anasarca History of present illness: 64-year-old female with past medical history of diabetes, hypertension, chronic diarrhea, pemphigoid vulgaris, hypothyroidism presented to the ED due to diffuse swelling. Patient states that about 3 months ago patient started to develop bilateral lower extremity swelling that has continued to progress and has gained a total amount of 30 pounds. Swelling has gotten so worse the patient is unable to do activities of daily living. Patient takes Lasix 20 mg daily however patient swelling continued and started developing shortness of breath. Shortness of breath happens even at rest, patient wakes up in the middle of the night gasping for air and is unable to lay flat. Also associated patient has developed some abdominal pain due to the swelling. Of note patient also noted some blood while going to the bathroom is unsure if from urine or from stool. At this time patient denies headache, blurry vision, chest pain, palpitations, nausea, vomiting fever, chills, recent travel, sick contacts. ED course: ED vitals: BP 156/64, HR 58, temperature 97.6 ?F, saturating 93% on room air ED labs: Sodium 146, chloride 108, BUN 27, EGFR 56, glucose 137, alk phos 253, BNP 116, albumin 3.3, UA shows 3+ protein, +1 glucose, blood 2+, 10 RBCs, chest x-ray shows vascular congestion, EKG sinus bradycardia, CT abdomen pelvis shows anasarca PMHx: As above SxHx: Hysterectomy, back surgery, Social Hx: Denies cigarette use, denies alcohol use, denies illicit substances including THC FHx: Unknown Review of Systems Review of Systems Systems Reviewed: All systems reviewed, normal except as documented Narrative Review of Systems: All 12 systems reviewed and found normal unless otherwise stated in the HPI Exam Vital Signs Temp Pulse Resp BP Pulse Ox O2 Del Method O2 Flow Rate 97.7 F 61 16 169/60 H 95 Nasal Cannula 2 01/31/25 00:56 01/31/25 01:08 01/31/25 00:56 01/31/25 01:08 01/31/25 00:56 01/31/25 00:56 01/31/25 00:56 Narrative Exam Physical Exam GENERAL: NAD, AAOx3, obese HEENT: Moist mucosa. Eyes open, symmetrical, & clear CARDIO: Heart RRR, no obvious murmurs PULM: No noted coughing/dyspnea, decreased breath sounds bilaterally, mild crackles GI: Abdomen soft, distended, no pain on palpation. BSx4 SKIN/MSK/EXT: Bilateral lower extremity edema up to the mid abdomen, pedal pulses present B/L NEURO: AAOx3, no focal neuro deficits, able to move all 4 extremities Results: Labs 01/30/25 14:03 01/30/25 14:03 Labs: Short CBC 01/30/25 Range/Units 14:03 WBC 7.9 (3.6-11.0) Thou/mm3 Hgb 13.9 (12.0-16.0) g/dL Hct 41.9 (36.0-46.0) % Plt Count 254 (140-440) Thou/mm3 BMP 01/30/25 14:03 Sodium 146 H Potassium 3.9 Chloride 108 H Carbon Dioxide 29.9 BUN 27 H Creatinine 1.1 Glucose 137 H Calcium 8.3 Cardiac Enzymes 01/30/25 Range/Units 14:03 Troponin I < 0.020 (0.0-0.045) ng/mL Liver Function 01/30/25 Range/Units 14:03 Total Bilirubin 0.7 (0.3-1.2) mg/dL AST 25 (0-34) U/L ALT 9 L (10-49) U/L Alkaline Phosphatase 253 H (46-116) U/L Albumin 3.3 L (3.4-4.8) gm/dL Urine 01/30/25 Range/Units 15:00 Urine Color Yellow (Lt Yel-Yel) Urine Clarity Clear (Clear/Hazy) Urine pH 6.0 (5.0-7.0) Ur Specific [place] 1.020 (1.001-1.035) Urine Protein 3+ A (Neg - Trace) Urine Glucose (UA) 1+ A (Negative) Quality Measures Quality Measures none Advance care planning discussed with:: patient Medications Home Medications and Allergies Home Medications ?Medication ?Instructions ?Recorded ?Confirmed ?Type lisinopril 30 mg tablet 20 mg PO QDAY #0 tabs 01/31/25 History insulin glargine 100 unit/mL (3 45 unit subcut QDAY 01/31/25 History mL) subcutaneous pen (Basaglar KwikPen U-100 Insulin) Allergies Allergy/AdvReac Type Severity Reaction Status Date / Time vancomycin Allergy Severe HEART Verified 01/30/25 13:32 PALPITATION, CONFUSION, STOMACH PAIN Visit Medications Acetaminophen (Acetaminophen 325 Mg Tablet) 650 mg PO Q6H PRN PRN Reason: Fever >99.5 Stop: 03/02/25 01:28 Acetaminophen (Acetaminophen 325 Mg Tablet) 1,000 mg PO Q6H PRN PRN Reason: PAIN SCALE 1-3 (mild Stop: 03/02/25 01:28 Docusate Sodium (Docusate Sod 100 Mg Capsule) 100 mg PO QDAY [facility]; Protocol Stop: 03/02/25 08:59 Enoxaparin Sodium (Enoxaparin Sod Inj 40 Mg/0.4 Ml Syringe) 40 mg SC QDAY [facility] Stop: 02/14/25 08:59 Furosemide (Furosemide Inj 10 Mg/Ml 4ml Vial) 40 mg IVP BIDD CASH Stop: 03/02/25 05:59 Ondansetron HCl (Ondansetron Inj 2 Mg/Ml Inj 2 Ml) 4 mg IVP Q6H PRN; Protocol PRN Reason: NAUSEA OR VOMITING Stop: 03/02/25 01:28 Pantoprazole Sodium (Pantoprazole Inj 40 Mg Vial) 40 mg IVP QDAY [facility] Stop: 03/02/25 08:59 Sennosides (Senna Tablet) 1 tab PO QDAY [facility]; Protocol Stop: 03/02/25 08:59 Discontinued Medications Furosemide (Furosemide Inj 10 Mg/Ml 4ml Vial) 80 mg IVP X1 ONE Stop: 01/31/25 00:58 Last Admin: 01/31/25 01:08 Dose: 80 mg Ceftriaxone Sodium/Dextrose (Rocephin/D5w 1gm Iv Premix) 1 gm in 50 mls @ 100 mls/hr IV X1 ONE Stop: 01/30/25 23:56 Last Infusion: 01/31/25 00:17 Dose: Infused Assessment & Plan Plan 64-year-old female with past medical history of diabetes, hypertension, pemphigoid vulgaris, hypothyroidism presented to the ED due to diffuse swelling. Patient will be admitted for acute decompensated heart failure. #Acute decompensated heart failure, HFpEF [EF 55-60%] #Anasarca #Bilateral pleural effusions Presented with clinical signs such as shortness of breath, dyspnea on exertion, bilateral leg swelling up to the mid abdomen, orthopnea, PND NYHA class: IV, symptoms even at rest CXR: Showing prominent vascular congestion BNP: 116, troponins negative Last echo: 11/05/2024: LV appears normal with EF 55-60%. Diastolic Dysfunction II present. RV appears normal with RVSP 33 mmHG. MV has mild MR & MAC, AOV is sclerotic with mild AI. TV has mild TR. CT abdomen shows bilateral pleural effusions ? Echo ordered ? IV Lasix 40 mg twice daily ? Keep K>4, Mg>2 ? Provide oxygen as required ? Strict I's and O's ? Fluid restriction 1500 mL #Diabetes mellitus type 2 Last A1c: 9.7 (11/05/2024) ? SSI ? Hypoglycemia protocol in place #Hypothyroidism ? Resumed levothyroxine as taken at home #Hypertension #Hyperlipidemia ? Med rec ordered #History of pemphigus vulgaris #Chronic diarrhea Health Maintenance: Disposition: Telemetry, IV diuresis Fluids: None Feeding: Low-sodium diet Thrombo prophylaxis: Lovenox Gastric Ulcer prophylaxis: Pantoprazole CODE STATUS: Full code Case discussed with my attending Dr. Irene Landrum MD PGY-1 Attending Provider Attestation/Addendum I have examined the patient, reviewed labs and imaging findings, discussed the case with the resident(s), and reviewed entered orders. I agree with the plan of care as outlined in this note, with these additional summaries/recommendations: After examination of the patient and review of the clinical data, I feel that this patient needs admission to the hospital for further treatment and evaluation. Patient is a 64-year-old female with a medical history of HFpEF, primary hypertension, dyslipidemia, diabetes mellitus type 2, hypothyroidism, pemphigus vulgaris, and neuropathy presents to [facility] emergency department on 01/31/2025 with chief complaint of weight gain, severe bilateral lower extremity swelling, and shortness of breath. Patient seen at bedside. She reports she has gained approximately 30 to 40 pounds over the last 3 months. On physical exam she has bilateral lower extremity pitting edema up into her abdomen. Patient diagnosed with CHF exacerbation and will be admitted to the hospital for further management. Previous echo on 11/05/2024 showed ejection fraction of 55 to 60% with stage II diastolic dysfunction. BNP 116. Chest x-ray shows prominent vascular congestion with bilateral septal edema. For preload reduction we will start fluid restriction, IV diuresis, and strict I's/O's. Murdock catheter in place and monitor urinary output closely. We will attempt to diurese at least 2 L throughout hospitalization. Continue supplemental oxygen and wean as tolerated. Start insulin sliding scale for diabetes mellitus type 2 with Accu-Cheks. Order A1c. Target blood sugar of 140-180 while hospitalized. Resume home levothyroxine for hypothyroidism and order TSH/free T4. Patient has underlying pemphigus vulgaris and following outpatient dermatology/vascular. Appears stable and consult wound care. Awaiting further home medication reconciliation. Patient updated on the plan and in agreement. All questions answered to satisfaction. Please see residents note for additional details and management. Dr. Irene MD
[2025-01-31 01:56] LABS: Cardiac Risk Estimate 2.9 RATIO (3.7-5.6); Cholesterol 138 mg/dL (132-200); HDL Cholesterol 48 mg/dL (40-60); LDL Cholesterol,Calculated 70 mg/dL (0-130); Magnesium 1.9 mg/dL (1.6-2.6); Triglycerides 100 mg/dL (30-150)
[2025-01-31] MEDS: FUROSEMIDE INJ 10 MG/ML 4ML VIAL 40 MG IVP (05:30)
[2025-01-31] MEDS: LEVOTHYROXINE SODIUM 25 MCG TABLET PO (05:30)
[2025-01-31 05:32] LABS: Basophils # (Auto) 0.1 Thou/mm3 (0.0-0.2); Basophils % (Auto) 1 % (0-2.5); Eosinophils # (Auto) 0.4 Thou/mm3 (0.0-0.5); Eosinophils % (Auto) 5 % (0-10); Hematocrit 44.7 % (36.0-46.0); Hemoglobin 14.7 g/dL (12.0-16.0); Immature Granulocytes % (Auto) 1 % (0-0); Immature Granulocytes Auto 0.04 Thou/mm3 (0.00-0.00); Lymphocytes # (Auto) 0.7 Thou/mm3 (1.0-4.8); Lymphocytes % (Auto) 8 % (10-50); Mean Corpuscular HGB Conc 32.9 g/dl (31.0-37.0); Mean Corpuscular Hemoglobin 31.3 pg (25.0-35.0); Mean Corpuscular Volume 95 fL (80-100); Monocytes # (Auto) 0.7 Thou/mm3 (0.0-0.8); Monocytes % (Auto) 8 % (0-12); Neutrophils # (Auto) 6.7 Thou/mm3 (1.8-7.7); Neutrophils % (Auto) 77 % (37-80); Nucleated Red Blood Cell % 0 /100 WBC (0); Platelet Count 255 Thou/mm3 (140-440); RDW Standard Deviation 62.1 fL (36.4-46.3); Red Blood Count 4.69 Miln/mm3 (4.00-5.20); White Blood Count 8.7 Thou/mm3 (3.6-11.0)
[2025-01-31 05:54] LABS: Glucose Estimated Average 217 mg/dL (80-131); Hemoglobin A1C 9.2 % Hgb (4.8-6.0)
[2025-01-31 06:12] LABS: Alanine Aminotransferase 9 U/L (10-49); Albumin, Serum 3.4 gm/dL (3.4-4.8); Albumin/Globulin Ratio 1.2 (1.2-2.2); Alkaline Phosphatase 266 U/L (46-116); Anion Gap 10 (7-16); Aspartate Amino Transferase 25 U/L (0-34); BUN/Creatinine Ratio 22 Ratio (12-20); Bilirubin,Total 0.7 mg/dL (0.3-1.2); Blood Urea Nitrogen 22 mg/dL (9-23); Calcium 8.5 mg/dL (8.3-10.6); Chloride 105 mMol/L (98-107); Estimated Creatinine Clearance 67.7 mL/min (>60); Globulin 2.8 gm/dL (2.3-3.5); Glucose 212 mg/dL (74-106); Magnesium 1.9 mg/dL (1.6-2.6); Osmolality,Calculated 301 (275-295); Potassium 3.6 mMol/L (3.4-5.1); Sodium 147 mMol/L (136-145); Total Protein 6.2 gm/dL (5.7-8.2); eGFR > 60 See Note
[2025-01-31] MEDS: INSULIN LISPRO (AdmeLOG) 1 UNIT/0.01 ML UNIT SC ×3 (08:30→17:22)
[2025-01-31] MEDS: ENOXAPARIN SOD INJ 40 MG/0.4 ML SYRINGE SC (08:33)
[2025-01-31] MEDS: PANTOPRAZOLE INJ 40 MG VIAL IVP (08:33)
[2025-01-31] MEDS: ACETAMINOPHEN 500 MG TABLET 1000 MG PO ×2 (08:36→21:13)
--- NOTE | 2025-01-31 10:49 | PC.SS ---
Follow up note: On IV diuresis. Pt does not utilize O2 at home. Pt is currently on 2 liters of O2. Pt will return home upon dc.
[2025-01-31] MEDS: SPIRONOLACTONE 25 MG TABLET PO (11:32)
[2025-01-31] MEDS: Lisinopril 20 MG TABLET PO (11:32)
[2025-01-31] MEDS: DAPAGLIFLOZIN PROPANEDIOL 5 MG TABLET 10 MG PO (11:32)
[2025-01-31] MEDS: POTASSIUM CHLORIDE 20 mEq TABCR 40 MEQ PO (11:45)
--- NOTE | 2025-01-31 11:57 | PC.SS ---
SS met with patient regarding her d/c plan. Pt is alert/oriented. Pt was admitted for Anasarca. Pt confirmed demographic and contact information is correct on facesheet. Pt resides with . Pt ambulates using a 4 wheel with seat, rollator walker. Pt states the walker at home is borrowed and her PCP has provided a prescription to purchase new walker. Pt is ok with all ADLs. Pt does not utilizes O2 at home. Patient?s pharmacy of choice is [facility] on [address]. Pt named her dtr, Patricia Jones medical decision maker if she is unable. SS provided pt with verbal options for home or SNF. Pt refused SNF. Patient?s choice is to return home upon d/c. Pt does not have an advance directive, SS offered, and pt declined. Pt states she followed up with PCP 1 month ago. D/C plan: Return home Next of Kin: Patricia Jones, phone# [phone] PCP: Dr. Rickie Landrum from [facility] Address: Correct on facesheet
--- NOTE | 2025-01-31 15:30 | ESPR_ITS ---
<Statement entered by Britt Phillips MD - 02/01/25 06:01> Patient was seen and examined by me personally. I have directly supervised and reviewed documentation by the team resident and agree with its findings with any exceptions or additional findings as below. Plan of care was discussed with the attending, Dr. Martinez. Overnight admit. 64-year-old female with past medical history of diabetes, hypertension, pemphigoid vulgaris, hypothyroidism, CHF with HFpEF presented to the ED due to diffuse swelling, admitted for acute decompensated heart failure. Will continue with diuresis. Britt Phillips, PGY-2 Documentation for date of: 01/31/25 Subjective Subjective Interval history: Patient is an overnight admit. Patient seen and examined at bedside this morning. Patient states that since last hospitalization when she was discharged she continued to take her Lasix 40 daily however she experienced lower extremity edema which progressively worsened. Patient states she has continued to contact her primary care regarding the edema but no new recommendations were made other than compression socks and the last time she saw her lens mounter Dr. Camejo was approximately 6 months ago. Patient states since her last hospitalization when she was discharged home with oxygen her symptoms of shortness of breath significantly improved and she no longer was using the oxygen therefore returned it. However in the last several days patient has had worsening shortness of breath and was unable to lay flat or on her side due to shortness of breath. Patient states she also has very limited mobility due to the shortness of breath plus the edema in her lower extremities. Patient feels she has gained a lot of weight because of all this fluid overload. Patient's vitals are stable, labs are within normal limits with the exception of blood glucose 212, hemoglobin 9.2. Patient states although she has been taking her Lantus however because sometimes she becomes hypoglycemic and then she takes 5 units instead of her 60 units daily. Patient denies any chest pain, palpitations or dizziness. Patient has no other complaints Exam Vital Signs Temp Pulse Resp BP Pulse Ox O2 Del Method O2 Flow Rate 97.0 F 67 16 134/56 H 96 Nasal Cannula 3 01/31/25 12:01/31/25 12:01/31/25 12:01/31/25 12:01/31/25 12:01/31/25 12:01/31/25 12:00 Narrative Exam GENERAL: A&Ox3 . Awake, Not in acute distress NEURO: no focal neurological deficits HEENT: Atraumatic, Normocephalic. mucous membranes moist. Eyes open, symmetrical, & clear HEART: Normal Heart Sounds LUNGS: Clear to auscultation with no wheezing or crackles. ABDOMEN: soft, non-distended, non-tender, bowel sounds heard, no guarding or rebound tenderness SKIN: ruptured bullous wounds bilaterally on lower extremities healing well EXTREMITIES: 3+ LE pitting edema extending to thighs bilaterally, no tenderness, able to move all 4 extremities, pedal pulses palpated Objective Labs 02/01/25 05:15 02/01/25 05:15 Labs: Laboratory Results - last 24 hr 01/30/25 01/31/25 01/31/25 15:00 01:27 05:02 WBC 8.7 RBC 4.69 Hgb 14.7 Hct 44.7 MCV 95 MCH 31.3 MCHC 32.9 RDW Std Deviation 62.1 H Plt Count 255 Neut % (Auto) 77 Lymph % (Auto) 8 L [place] % (Auto) 8 Eos % (Auto) 5 Baso % (Auto) 1 Neut # (Auto) 6.7 Lymph # (Auto) 0.7 L [place] # (Auto) 0.7 Eos # (Auto) 0.4 Baso # (Auto) 0.1 Immature Gran # (Auto) 0.04 H Absolute Nucleated RBC 0.00 Immature Gran % 1 H Nucleated RBC % 0 Sodium 147 H Potassium 3.6 Chloride 105 Carbon Dioxide 32.0 H Anion Gap 10 BUN 22 Creatinine 1.0 Estim Creat Clear Calc 67.7 eGFR > 60 BUN/Creatinine Ratio 22 H Glucose [address] Glu mg/dL 217 H Hemoglobin A1c 9.2 H Calculated Osmolality 301 H Calcium 8.5 Corrected Calcium 9.0 Magnesium 1.9 1.9 Total Bilirubin 0.7 AST 25 ALT 9 L Alkaline Phosphatase 266 H Total Protein 6.2 Albumin 3.4 Globulin 2.8 Albumin/Globulin Ratio 1.2 Triglycerides 100 Cholesterol 138 LDL Cholesterol, Calc 70 HDL Cholesterol 48 Cholesterol/HDL Ratio 2.9 L TSH 4.70 Ur Collection Type Voided Urine Color Yellow Urine Clarity Clear Urine pH 6.0 Ur Specific [place] 1.020 Urine Protein 3+ A Urine Glucose (UA) 1+ A Urine Ketones Negative Urine Blood 2+ A Urine Nitrite Negative Urine Bilirubin Negative Urine Urobilinogen (Auto) Negative Ur Leukocyte Esterase Negative Urine RBC 10 H Urine WBC 4 Ur Squamous Epith Cells 2 Urine Bacteria None Hyaline Casts < 1 Ur Culture Indicated? Not Indicated Quality Measures Quality Measures none Advance care planning discussed with:: patient Assessment & Plan Assessment Current Active Medications: Generic Name Dose Route Start Last Admin Trade Name Freq PRN Reason Stop Dose Admin Acetaminophen 650 mg 01/31/25 01:29 Acetaminophen 325 Mg Tablet PO 03/02/25 01:28 Q6H PRN Fever >99.5 Acetaminophen 1,000 mg 01/31/25 08:33 01/31/25 08:36 Acetaminophen 500 Mg Tablet PO 03/02/25 01:28 1,000 mg Q6H PRN Administration PAIN SCALE 1-3 (mild Dapagliflozin 10 mg 01/31/25 09:15 01/31/25 11:32 Dapagliflozin Propanediol 5 Mg Tablet PO 03/02/25 09:14 10 mg QAM CASH Administration Dextrose 25 ml 01/31/25 01:37 Dextrose 50%-Water Inj 50 Ml Syringe IV 03/02/25 01:36 Q15MIN PRN BG 50-70 responsive npo pt Dextrose 50 ml 01/31/25 01:37 Dextrose 50%-Water Inj 50 Ml Syringe IV 03/02/25 01:36 Q15MIN PRN BG <50 OR BG <70 & pt unresponsive Docusate Sodium 100 mg 01/31/25 09:00 01/31/25 08:33 Docusate Sod 100 Mg Capsule PO 03/02/25 08:59 Not Given QDAY [facility] Protocol Enoxaparin Sodium 40 mg 01/31/25 09:00 01/31/25 08:33 Enoxaparin Sod Inj 40 Mg/0.4 Ml Syringe SC 02/14/25 08:59 40 mg QDAY CASH Administration Furosemide 40 mg 02/01/25 09:00 Furosemide Inj 10 Mg/Ml 4ml Vial IVP 03/03/25 08:59 QDAY CASH Glucagon 1 mg 01/31/25 01:37 Glucagon Inj 1 Mg Vial IM Q15MIN PRN BG <70, and no IV access Insulin Human Lispro 0 unit 01/31/25 07:30 01/31/25 11:34 Insulin Lispro (Admelog) 1 Unit/0.01 Ml Unit SC 03/02/25 07:29 3 unit AC CASH Administration Protocol Levothyroxine Sodium 25 mcg 01/31/25 06:00 01/31/25 05:30 Levothyroxine Sodium 25 Mcg Tablet PO 03/02/25 05:59 25 mcg ACBR CASH Administration Lisinopril 20 mg 01/31/25 10:30 01/31/25 11:32 Lisinopril 20 Mg Tablet PO 03/02/25 10:29 20 mg QDAY CASH Administration Ondansetron HCl 4 mg 01/31/25 01:29 Ondansetron Inj 2 Mg/Ml Inj 2 Ml IVP 03/02/25 01:28 Q6H PRN NAUSEA OR VOMITING Protocol Pantoprazole Sodium 40 mg 01/31/25 09:00 01/31/25 08:33 Pantoprazole Inj 40 Mg Vial IVP 03/02/25 08:59 40 mg QDAY CASH Administration Sennosides 1 tab 01/31/25 09:00 01/31/25 08:33 Senna Tablet PO 03/02/25 08:59 Not Given QDAY C[facility] Protocol Spironolactone 25 mg 01/31/25 10:30 01/31/25 11:32 Spironolactone 25 Mg Tablet PO 03/02/25 10:29 25 mg QDAY CASH Administration Plan 64-year-old female with past medical history of diabetes, hypertension, pemphigoid vulgaris, hypothyroidism, CHF with HFpEF presented to the ED due to diffuse swelling. Patient will be admitted for acute decompensated heart failure. #Acute CHF exacerbation, HFpEF [EF 55-60%] #Anasarca #Bilateral pleural effusions Presented with clinical signs such as shortness of breath, dyspnea on exertion, bilateral leg swelling up to the mid abdomen, orthopnea, PND NYHA class: IV, symptoms even at rest CXR: Showing prominent vascular congestion BNP: 116, troponins negative Last echo: 11/05/2024: LV appears normal with EF 55-60%. Diastolic Dysfunction II present. RV appears normal with RVSP 33 mmHG. MV has mild MR & MAC, AOV is sclerotic with mild AI. TV has mild TR. CT abdomen shows bilateral pleural effusions Plan: - Embossograph Operator Dr. Camejo consulted, appreciate recommendations ? Echo ordered ? IV Lasix 40 mg Qday, spironolactone, and farxiga started. -Will hold pt's home metoprolol due to bradycardia during this hospital admission ? Keep K>4, Mg>2 ? Provide oxygen as required ? Strict I's and O's ? Fluid restriction 1500 mL #Insulin-dependent type 2 diabetes- uncontrolled #Diabetic neuropathy -A1c 9.2 on 01/31/2025 -Patient's home regimen includes Januvia, Jardiance, Lantus 60 units -Started patient on insulin sliding scale ordered, hypoglycemic protocol ordered, acu-checks ACHS -resumed home pregabalin 75mg TID #Hypothyroidism -TSH 4.70 on 01/31/25 ? Resumed home levothyroxine #Hypertension #Hyperlipidemia -Will hold home amlodipine due to lower extremity edema and hold metoprolol due to bradycardia -Resumed lisinopril 20mg daily and resumed home atorvastatin #Pemphigoid vulgaris #Chronic diarrhea -Patient has ruptured bolus bilaterally on lower extremities -resumed home azathioprine -Wound care ordered Health Maintenance: Disposition: Telemetry, IV diuresis Fluids: None Feeding: Low-sodium diet Thrombo prophylaxis: Lovenox Gastric Ulcer prophylaxis: Pantoprazole CODE STATUS: Full code Assessment and plan discussed with my senior resident Dr. Phillips & attending physician Dr. Juan Pinto (PGY-1)- Internal medicine resident Attending Provider Attestation/Addendum Face to face evaluation was performed by me. I have personally seen and examined the patient. I discussed the assessment and plan with the entire medicine team. I reviewed available medical records, imaging studies, laboratory results. I agree with the above subjective data, objective findings, assessment and plan except as corrected by me or noted below Acute on chronic heart failure with preserved ejection fraction, left ventricular systolic, decompensated Bilateral lower extremity edema Volume overload Essential hypertension Possible pemphigoid vulgaris - Start IV diuresis - Cardiac echo - Cardiology consultation - Start SGLT?2 agent, spironolactone More than > 30 minutes spent on the encounter
[2025-01-31] MEDS: PREGABALIN 75 MG CAPSULE PO ×2 (15:44→21:00)
[2025-01-31] MEDS: azaTHIOprine 50 MG TABLET PO (17:22)
[2025-01-31] MEDS: ATORVASTATIN CALCIUM 10 MG TABLET PO (20:59)
--- NOTE | 2025-01-31 21:34 | ESCONSULT_ITS ---
RE: NOLVIA HENDRICKSON : 1960 DATE OF CONSULTATION: 01/31/2025 REFERRING PHYSICIAN: Hospitalist. PERTINENT HISTORY OF PRESENT ILLNESS: Ms. Nolvia Hendrickson is a 64-year-old female who is known to have a history of a multitude of problems of chronic hypertension, history of diabetes mellitus, history of hypothyroidism, history of cardiac arrhythmia, history of hyperlipidemia, and history of fibromyalgia. The patient also has a history of pemphigus of the lower extremities. Also, has a history of pemphigoid vulgaris of the lower extremities and since the patient has been on steroid therapy, the patient claims to have gained a lot of weight and also has been having swelling of the extremities. The patient has also been having symptoms of increasing fatigue, weakness, and increasing shortness of breath. Because of the persistence of these symptoms, the patient was seen in the emergency room and was subsequently hospitalized. The patient denies any complaints of chest pain, though denies any complaint of skipped beats or palpitations. Denies any complaint of dizziness or diaphoresis. Denies any complaint of fever or chills. PAST MEDICAL HISTORY: Significant for history of diabetes mellitus at least for the last 30 years, history of fibromyalgia for the last few years, history of low back pain syndrome and previous history of back surgery a few years ago, history of cholecystectomy more than 25 years ago, history of hysterectomy in 1997, history of foot drop since 2016, history of cataract surgery. The patient also has a history of hyperlipidemia for the last few years, history of chronic hypertension for the last several years, history of hypothyroidism for the last few years. The patient also was diagnosed to have abdominal aortic aneurysm in 1999 and history of diverticulosis in the past. PERSONAL HISTORY: The patient is a nonsmoker, nonalcoholic. FAMILY HISTORY: Significant for history of diabetes mellitus as well as arteriosclerotic heart disease in her mother and history of chronic obstructive pulmonary disease in her father. PHYSICAL EXAMINATION: VITAL SIGNS: The patient's blood pressure is 153/63, pulse rate is 56, respirations are 19, temperature is 97, and oximetry saturation 96%. HEAD AND NECK: Unremarkable. JVP is not elevated. Carotid pulsation are felt well on both sides. No carotid bruits heard. HEART: No cardiomegaly clinically. S1 and S3 are normal. No murmur or gallop is appreciated. No clicks are heard. LUNGS: Clear to percussion and auscultation. ABDOMEN: Soft. No organomegaly is noted. EXTREMITIES: Trace pedal edema is noted. NEUROLOGIC: Unremarkable. No focal localized neuro deficit is appreciated. DIAGNOSTIC DATA: The patient's electrocardiogram yesterday shows sinus bradycardia at 59 beats per minute. The patient's lab work showed WBC count yesterday was 7900, hemoglobin 13.9 with hematocrit of 41.9. Today's WBC count is 8700, hemoglobin 14.7 with hematocrit of 44.7. The patient's prothrombin time yesterday was 12 with an INR of 1.1, BUN yesterday was 27, creatinine 1.1, potassium level 3.9. Today's BUN is 22, creatinine 1.0, potassium level is 3.6. The troponin level yesterday was less than 0.02. BNP level is mildly elevated and is 116 yesterday. Serum albumin level though yesterday was low and was 3.3. Today's serum albumin level is 3.4. Total cholesterol this morning was 138 with HDL cholesterol of 48 and LDL cholesterol of 70 and triglycerides of 100, TSH level is 4.70, which is within the euthyroid range. Chest x-ray reported yesterday was showing mild cardiac enlargement and mild congestion. Cardiac echo Doppler study done earlier today showed normal cardiac chamber size except for mildly enlarged left atrium and normal left ventricular systolic function with a left ventricular ejection fraction of 50% to 55%, mild left ventricular diastolic dysfunction is noted. Mitral valve annular calcification is noted with trace mitral regurgitation. Aortic sclerosis is also noted and moderate tricuspid regurgitation is noted. CLINICAL IMPRESSION: 1. Recent weight gain and edema, possibly secondary to the steroid therapy as well as hypoalbuminemia. 2. Chronic hypertension with hypertensive cardiovascular disease and mild left ventricular diastolic dysfunction. 3. Diabetes mellitus. 4. Hyperlipidemia. 5. Hypothyroidism. 6. Pemphigoid vulgaris as per history and clinical findings. SUGGESTIONS: I agree with the present plan of management with the patient of continuing the patient on insulin therapy, continuing the patient on diuretic therapy, continuing the patient on antihypertensive medications, continuing the patient on lipid-lowering agents. I will follow the patient with you and I highly thank you very much for letting me participate in the care of the patient. DT: 20:26:46 TT: 21:33:00 Ref: [id number] - TID: [id number]
[2025-02-01] VITALS (13 sets, daily range): BP systolic 154–179; BP diastolic 58–72; PULSE 57–89; RESP 11–20; TEMP 36.1–37.1; O2SAT 94–98; BMI 41.1; BMI 40.8
[2025-02-01 05:36] LABS: Basophils # (Auto) 0.1 Thou/mm3 (0.0-0.2); Basophils % (Auto) 1 % (0-2.5); Eosinophils # (Auto) 0.5 Thou/mm3 (0.0-0.5); Eosinophils % (Auto) 6 % (0-10); Hematocrit 41.3 % (36.0-46.0); Hemoglobin 13.8 g/dL (12.0-16.0); Immature Granulocytes % (Auto) 0 % (0-0); Immature Granulocytes Auto 0.02 Thou/mm3 (0.00-0.00); Lymphocytes # (Auto) 1.1 Thou/mm3 (1.0-4.8); Lymphocytes % (Auto) 14 % (10-50); Mean Corpuscular HGB Conc 33.4 g/dl (31.0-37.0); Mean Corpuscular Hemoglobin 31.3 pg (25.0-35.0); Mean Corpuscular Volume 94 fL (80-100); Monocytes # (Auto) 0.7 Thou/mm3 (0.0-0.8); Monocytes % (Auto) 9 % (0-12); Neutrophils # (Auto) 5.3 Thou/mm3 (1.8-7.7); Neutrophils % (Auto) 70 % (37-80); Nucleated Red Blood Cell % 0 /100 WBC (0); Platelet Count 243 Thou/mm3 (140-440); RDW Standard Deviation 61.5 fL (36.4-46.3); Red Blood Count 4.41 Miln/mm3 (4.00-5.20); White Blood Count 7.6 Thou/mm3 (3.6-11.0)
[2025-02-01] MEDS: LEVOTHYROXINE SODIUM 25 MCG TABLET PO (06:07)
[2025-02-01] MEDS: PREGABALIN 75 MG CAPSULE PO ×3 (06:08→21:00)
[2025-02-01 06:13] LABS: Alanine Aminotransferase 7 U/L (10-49); Albumin, Serum 3.2 gm/dL (3.4-4.8); Albumin/Globulin Ratio 1.2 (1.2-2.2); Alkaline Phosphatase 229 U/L (46-116); Anion Gap 7 (7-16); Aspartate Amino Transferase 18 U/L (0-34); BUN/Creatinine Ratio 15 Ratio (12-20); Bilirubin,Total 0.6 mg/dL (0.3-1.2); Blood Urea Nitrogen 17 mg/dL (9-23); Calcium 8.3 mg/dL (8.3-10.6); Calcium (Corrected) 8.9 mg/dL (8.5-10.1); Carbon Dioxide 32.7 mMol/L (20.0-31.0); Chloride 106 mMol/L (98-107); Creatinine (Component) 1.1 mg/dL (0.6-1.3); Estimated Creatinine Clearance 61.4 mL/min (>60); Globulin 2.6 gm/dL (2.3-3.5); Glucose 225 mg/dL (74-106); Magnesium 1.9 mg/dL (1.6-2.6); Osmolality,Calculated 299 (275-295); Phosphorous 3.8 mg/dL (2.4-5.1); Potassium 4.3 mMol/L (3.4-5.1); Sodium 146 mMol/L (136-145); Total Protein 5.8 gm/dL (5.7-8.2); eGFR 56 See Note
[2025-02-01] MEDS: ACETAMINOPHEN 500 MG TABLET 1000 MG PO (06:15)
[2025-02-01] MEDS: INSULIN LISPRO (AdmeLOG) 1 UNIT/0.01 ML UNIT SC ×3 (08:10→16:27)
[2025-02-01] MEDS: FUROSEMIDE INJ 10 MG/ML 4ML VIAL 40 MG IVP (08:11)
[2025-02-01] MEDS: PANTOPRAZOLE INJ 40 MG VIAL IVP (08:11)
[2025-02-01] MEDS: Lisinopril 20 MG TABLET PO (08:12)
[2025-02-01] MEDS: SPIRONOLACTONE 25 MG TABLET PO (08:12)
[2025-02-01] MEDS: azaTHIOprine 50 MG TABLET PO (08:12)
[2025-02-01] MEDS: DAPAGLIFLOZIN PROPANEDIOL 5 MG TABLET 10 MG PO (08:12)
[2025-02-01] MEDS: ENOXAPARIN SOD INJ 40 MG/0.4 ML SYRINGE SC (08:12)
--- NOTE | 2025-02-01 10:37 | PC.NURSE ---
Pt. O2 sat on RA dropped to 84%, O2sats with 1L O2 are 90%
--- NOTE | 2025-02-01 10:45 | PC.SS ---
SS met with bedside nurseElly to explained pt will require O2 testing to order home O2 and pt is possible d/c for tomorrow. O2 at home can be ordered the day of d/c or day before, per [facility] ([employer]).
[2025-02-01] MEDS: INSULIN GLARGINE (Lantus) 5 UNIT/0.05 ML (PER 5 UNITS) 30 UNIT SC (11:10)
--- NOTE | 2025-02-01 11:34 | PC.DIETICIAN ---
Nutrition recommendations 1. Low Sodium, Consistent Carb, 1500 ml/day FR. 2. Vitamin C 500 mg BID, zinc sulfate 220 mg once daily for 14 days, multivit/minerals.
[2025-02-01] MEDS: ACETAMINOPHEN 325 MG TABLET 650 MG PO (13:40)
[2025-02-01] MEDS: ZINC SULFATE 220 MG CAPSULE PO (14:52)
[2025-02-01] MEDS: ASCORBIC ACID 250 MG TABLET 500 MG PO ×2 (14:52→21:01)
[2025-02-01] MEDS: MULTIVITAMINS TABLET 1 TAB PO (14:52)
--- NOTE | 2025-02-01 15:30 | ESPR_ITS ---
<Statement entered by Britt Phillips MD - 02/01/25 16:21> Patient was seen and examined by me personally. I have directly supervised and reviewed documentation by the team resident and agree with its findings with any exceptions or additional findings as below. Plan of care was discussed with the attending, Dr. Chang. Britt Phillips, PGY-2 Documentation for date of: 02/01/25 Subjective Subjective Interval history: No acute overnight events reported. Patient seen and examined at bedside this morning patient is currently saturating above 94% on 1 L oxygen via nasal cannula. Patient endorses to significant improvement of shortness of breath. Patient is net -2190 with Lasix 40 Mg IV daily. Blood pressure is 155/68, labs are within normal limits with the exception of GFR 56, glucose 225 and albumin 3.2. Patient denies any chest pain, palpitation chest pressure. Will continue diuresing and monitor labs. Patient has no other complaints Exam Vital Signs Temp Pulse Resp BP Pulse Ox O2 Del Method O2 Flow Rate 97.0 F 67 17 155/68 H 97 Nasal Cannula 2 02/01/25 08:00 02/01/25 11:58 02/01/25 08:00 02/01/25 08:12 02/01/25 08:00 02/01/25 08:00 02/01/25 08:00 Narrative Exam GENERAL: A&Ox3 . Awake, Not in acute distress NEURO: no focal neurological deficits HEENT: Atraumatic, Normocephalic. mucous membranes moist. Eyes open, symmetrical, & clear HEART: Normal Heart Sounds LUNGS: Clear to auscultation with no wheezing or crackles. ABDOMEN: soft, non-distended, non-tender, bowel sounds heard, no guarding or rebound tenderness SKIN: ruptured bullous wounds bilaterally on lower extremities healing well EXTREMITIES: 2+ LE pitting edema extending to thighs bilaterally, no tenderness, able to move all 4 extremities, pedal pulses palpated Objective Labs 02/01/25 05:15 02/01/25 05:15 Labs: Laboratory Results - last 24 hr 02/01/25 05:15 WBC 7.6 RBC 4.41 Hgb 13.8 Hct 41.3 MCV 94 MCH 31.3 MCHC 33.4 RDW Std Deviation 61.5 H Plt Count 243 Neut % (Auto) 70 Lymph % (Auto) 14 Hockley % (Auto) 9 Eos % (Auto) 6 Baso % (Auto) 1 Neut # (Auto) 5.3 Lymph # (Auto) 1.1 [place]ockley # (Auto) 0.7 Eos # (Auto) 0.5 Baso # (Auto) 0.1 Immature Gran # (Auto) 0.02 H Absolute Nucleated RBC 0.00 Immature Gran % 0 Nucleated RBC % 0 Sodium 146 H Potassium 4.3 D Chloride 106 Carbon Dioxide 32.7 H Anion Gap 7 BUN 17 Creatinine 1.1 Estim Creat Clear Calc 61.4 eGFR 56 L BUN/Creatinine Ratio 15 Glucose 225 H Calculated Osmolality 299 H Calcium 8.3 Corrected Calcium 8.9 Phosphorus 3.8 Magnesium 1.9 Total Bilirubin 0.6 AST 18 ALT 7 L Alkaline Phosphatase 229 H D Total Protein 5.8 Albumin 3.2 L Globulin 2.6 Albumin/Globulin Ratio 1.2 Quality Measures Quality Measures none Advance care planning discussed with:: patient Assessment & Plan Assessment Current Active Medications: Generic Name Dose Route Start Last Admin Trade Name Freq PRN Reason Stop Dose Admin Acetaminophen 650 mg 01/31/25 01:29 02/01/25 13:40 Acetaminophen 325 Mg Tablet PO 03/02/25 01:28 650 mg Q6H PRN Administration Fever >99.5 Acetaminophen 1,000 mg 01/31/25 08:33 02/01/25 06:15 Acetaminophen 500 Mg Tablet PO 03/02/25 01:28 1,000 mg Q6H PRN Administration PAIN SCALE 1-3 (mild Ascorbic Acid 500 mg 02/01/25 14:45 02/01/25 14:52 Ascorbic Acid 250 Mg Tablet PO 03/03/25 14:44 500 mg BID CASH Administration Atorvastatin Calcium 10 mg 01/31/25 21:00 01/31/25 20:59 Atorvastatin Calcium 10 Mg Tablet PO 03/02/25 20:59 10 mg HS CASH Administration Azathioprine 50 mg 01/31/25 16:00 02/01/25 08:12 Azathioprine 50 Mg Tablet PO 03/02/25 15:59 50 mg QDAY CASH Administration Dapagliflozin 10 mg 01/31/25 09:15 02/01/25 08:12 Dapagliflozin Propanediol 5 Mg Tablet PO 03/02/25 09:14 10 mg QAM CASH Administration Dextrose 25 ml 01/31/25 01:37 Dextrose 50%-Water Inj 50 Ml Syringe IV 03/02/25 01:36 Q15MIN PRN BG 50-70 responsive npo pt Dextrose 50 ml 01/31/25 01:37 Dextrose 50%-Water Inj 50 Ml Syringe IV 03/02/25 01:36 Q15MIN PRN BG <50 OR BG <70 & pt unresponsive Docusate Sodium 100 mg 01/31/25 09:00 02/01/25 08:15 Docusate Sod 100 Mg Capsule PO 03/02/25 08:59 Not Given QDAY [facility] Protocol Enoxaparin Sodium 40 mg 01/31/25 09:00 02/01/25 08:12 Enoxaparin Sod Inj 40 Mg/0.4 Ml Syringe SC 02/14/25 08:59 40 mg QDAY CASH Administration Furosemide 40 mg 02/01/25 09:00 02/01/25 08:11 Furosemide Inj 10 Mg/Ml 4ml Vial IVP 03/03/25 08:59 40 mg QDAY CASH Administration Glucagon 1 mg 01/31/25 01:37 Glucagon Inj 1 Mg Vial IM Q15MIN PRN BG <70, and no IV access Insulin Glargine 30 unit 02/01/25 10:15 02/01/25 11:10 Insulin Glargine (Lantus) 5 Unit/0.05 Ml (Per 5 Units) SC 03/03/25 10:14 30 unit QDAY CASH Administration Insulin Human Lispro 0 unit 01/31/25 07:30 02/01/25 11:10 Insulin Lispro (Admelog) 1 Unit/0.01 Ml Unit SC 03/02/25 07:29 3 unit AC CASH Administration Protocol Levothyroxine Sodium 25 mcg 01/31/25 06:00 02/01/25 06:07 Levothyroxine Sodium 25 Mcg Tablet PO 03/02/25 05:59 25 mcg ACBR CASH Administration Lisinopril 20 mg 01/31/25 10:30 02/01/25 08:12 Lisinopril 20 Mg Tablet PO 03/02/25 10:29 20 mg QDAY CASH Administration Multivitamins 1 tab 02/01/25 14:45 02/01/25 14:52 Multivitamins Tablet PO 03/03/25 14:44 1 tab QDAY CASH Administration Ondansetron HCl 4 mg 01/31/25 01:29 Ondansetron Inj 2 Mg/Ml Inj 2 Ml IVP 03/02/25 01:28 Q6H PRN NAUSEA OR VOMITING Protocol Pantoprazole Sodium 40 mg 01/31/25 09:00 02/01/25 08:11 Pantoprazole Inj 40 Mg Vial IVP 03/02/25 08:59 40 mg QDAY CASH Administration Pregabalin 75 mg 01/31/25 15:45 02/01/25 13:36 Pregabalin 75 Mg Capsule PO 03/02/25 15:44 75 mg TID CASH Administration Sennosides 1 tab 01/31/25 09:00 02/01/25 08:14 Senna Tablet PO 03/02/25 08:59 Not Given QDAY [facility] Protocol Spironolactone 25 mg 01/31/25 10:30 02/01/25 08:12 Spironolactone 25 Mg Tablet PO 03/02/25 10:29 25 mg QDAY CASH Administration Zinc Sulfate 220 mg 02/01/25 14:45 02/01/25 14:52 Zinc Sulfate 220 Mg Capsule PO 02/15/25 14:44 220 mg QDAY CASH Administration Plan Ms. Cox is a 64-year-old female with past medical history of diabetes, hypertension, pemphigoid vulgaris, hypothyroidism, CHF with HFpEF presented to the ED due to diffuse swelling. Patient will be admitted for acute decompensated heart failure. #Acute CHF exacerbation, HFpEF [EF 55-60%] #Anasarca #Bilateral pleural effusions Presented with clinical signs such as shortness of breath, dyspnea on exertion, bilateral leg swelling up to the mid abdomen, orthopnea, PND NYHA class: IV, symptoms even at rest CXR: Showing prominent vascular congestion BNP: 116, troponins negative Last echo: 11/05/2024: LV appears normal with EF 55-60%. Diastolic Dysfunction II present. RV appears normal with RVSP 33 mmHG. MV has mild MR & MAC, AOV is sclerotic with mild AI. TV has mild TR. CT abdomen shows bilateral pleural effusions Plan: - Engineering Vice President Dr. Camejo consulted, appreciate recommendations ? Echo ordered ? IV Lasix 40 mg Qday, spironolactone, and farxiga started. -Will hold pt's home metoprolol due to bradycardia during this hospital admission ? Keep K>4, Mg>2 ? Provide oxygen as required ? Strict I's and O's ? Fluid restriction 1500 mL #Insulin-dependent type 2 diabetes- uncontrolled #Diabetic neuropathy -A1c 9.2 on 01/31/2025 -Patient's home regimen includes Januvia, Jardiance, Lantus 60 units -Started patient on insulin sliding scale ordered, hypoglycemic protocol ordered, acu-checks ACHS -Started pt on glargine 30 units daily -resumed home pregabalin 75mg TID #Hypothyroidism -TSH 4.70 on 01/31/25 ? Resumed home levothyroxine #Hypertension #Hyperlipidemia -Will hold home amlodipine due to lower extremity edema and hold metoprolol due to bradycardia -Resumed lisinopril 20mg daily and resumed home atorvastatin #Pemphigoid vulgaris #Chronic diarrhea -Patient has ruptured bolus bilaterally on lower extremities -resumed home azathioprine -Wound care, vitamin C, Zinc and multivitamisn ordered Health Maintenance: Disposition: Telemetry, IV diuresis Fluids: None Feeding: Low-sodium diet consistent low Thrombo prophylaxis: Lovenox Gastric Ulcer prophylaxis: Pantoprazole CODE STATUS: Full code Assessment and plan discussed with my senior resident Dr. Phillips & attending physician Dr. Bernardo Pinto (PGY-1)- Internal medicine resident Attending Provider Attestation/Addendum I attest that I was physically present for the evaluation, physical examination, lab and imaging review of the patient with the residents. I discussed the case with the residents and agree with the findings and plans of care as documented above. At bedside today, patient states she is feeling better and denies any new complaints. Currently on 1 L nasal cannula, saturating well. Attempt was made to wean off the oxygen but saturation decreased and pending patient was restarted on supplemental oxygen. Continues to have significant pedal edema, 2+. We will continue with diuresis, spironolactone and Farxiga. Had net negative of 2190 in last 24 hours. Cardiology following closely, appreciate recommendations. Glucose noted to be 225 this morning, added Lantus 30 daily, we will continue to monitor with frequent glucose checks. Awaiting improvement in anasarca, physical therapy. Patient may need supplemental oxygen on discharge. Breezy Chang MD
[2025-02-01] MEDS: amLODIPine BESYLATE 5 MG TABLET PO ×2 (16:23→21:01)
--- NOTE | 2025-02-01 20:49 | PC.NURSE ---
notified Dr Blanc of bp 179/69 hr 89-he states he will look at chart and put orders if necessary.
[2025-02-01] MEDS: ATORVASTATIN CALCIUM 10 MG TABLET PO (21:01)
[2025-02-02] VITALS (11 sets, daily range): BP systolic 145–171; BP diastolic 61–70; PULSE 62–92; RESP 11–21; TEMP 36.3–36.6; O2SAT 96–97; BMI 39.3
[2025-02-02] MEDS: PREGABALIN 75 MG CAPSULE PO ×3 (05:15→21:32)
[2025-02-02] MEDS: LEVOTHYROXINE SODIUM 25 MCG TABLET PO (05:15)
[2025-02-02 07:05] LABS: Basophils # (Auto) 0.1 Thou/mm3 (0.0-0.2); Basophils % (Auto) 1 % (0-2.5); Eosinophils # (Auto) 0.4 Thou/mm3 (0.0-0.5); Eosinophils % (Auto) 6 % (0-10); Hematocrit 45.8 % (36.0-46.0); Hemoglobin 14.8 g/dL (12.0-16.0); Immature Granulocytes % (Auto) 0 % (0-0); Immature Granulocytes Auto 0.01 Thou/mm3 (0.00-0.00); Lymphocytes # (Auto) 1.1 Thou/mm3 (1.0-4.8); Lymphocytes % (Auto) 14 % (10-50); Mean Corpuscular HGB Conc 32.3 g/dl (31.0-37.0); Mean Corpuscular Hemoglobin 31.2 pg (25.0-35.0); Mean Corpuscular Volume 97 fL (80-100); Monocytes # (Auto) 0.6 Thou/mm3 (0.0-0.8); Monocytes % (Auto) 7 % (0-12); Neutrophils # (Auto) 5.8 Thou/mm3 (1.8-7.7); Neutrophils % (Auto) 73 % (37-80); Nucleated Red Blood Cell % 0 /100 WBC (0); Platelet Count 267 Thou/mm3 (140-440); RDW Standard Deviation 62.7 fL (36.4-46.3); Red Blood Count 4.74 Miln/mm3 (4.00-5.20)
--- NOTE | 2025-02-02 07:27 | ESPR_ITS ---
RE: NOLVIA HENDRICKSON : 1960 DATE OF SERVICE: 02/01/2025 SUBJECTIVE: Ms. Nolvia Hendrickson is resting fairly comfortably in bed this morning. The patient is breathing fairly well, though is still requiring oxygen. Denies any complaint of chest pain. Denies any complaint of skipped beats or palpitations. PHYSICAL EXAMINATION: Vital Signs: Blood pressure today is 155/68, the pulse rate is 66 per minute, the patient's temperature is 97, respiratory rate is 17, the oximetry saturation on 2 liters of oxygen by nasal cannula is 97%. Heart: The heart examination is clear. Heart rhythm is staying in sinus rhythm. Lungs: The lungs are clear to percussion and auscultation. Extremities: No pedal edema is noted. LABORATORY DATA: Lab work today shows WBC count is normal and is 7,600, hemoglobin is 13.8 with hematocrit of 41.3. The patient's BUN today is 17, creatinine 1.1, potassium level is 4.3. The serum albumin level is lowered and is only 3.2. PLAN: The patient's cardiac status at the present time is stable. Present medications will be continued as before. Discharge planning will be as per the hospitalist. DT: 12:30:18 TT: 13:02:00 Ref: [id number] - TID: [id number]
[2025-02-02 07:35] LABS: Alanine Aminotransferase < 7 U/L (10-49); Albumin, Serum 3.2 gm/dL (3.4-4.8); Albumin/Globulin Ratio 1.2 (1.2-2.2); Alkaline Phosphatase 215 U/L (46-116); Anion Gap 12 (7-16); Aspartate Amino Transferase 19 U/L (0-34); BUN/Creatinine Ratio 16 Ratio (12-20); Bilirubin,Total 0.7 mg/dL (0.3-1.2); Blood Urea Nitrogen 16 mg/dL (9-23); Calcium 8.7 mg/dL (8.3-10.6); Calcium (Corrected) 9.3 mg/dL (8.5-10.1); Carbon Dioxide 33.5 mMol/L (20.0-31.0); Chloride 104 mMol/L (98-107); Estimated Creatinine Clearance 66.1 mL/min (>60); Globulin 2.7 gm/dL (2.3-3.5); Glucose 197 mg/dL (74-106); Osmolality,Calculated 302 (275-295); Phosphorous 3.8 mg/dL (2.4-5.1); Potassium 3.9 mMol/L (3.4-5.1); Sodium 149 mMol/L (136-145); Total Protein 5.9 gm/dL (5.7-8.2); eGFR > 60 See Note
[2025-02-02] MEDS: INSULIN LISPRO (AdmeLOG) 1 UNIT/0.01 ML UNIT SC ×3 (07:54→16:44)
[2025-02-02] MEDS: ENOXAPARIN SOD INJ 40 MG/0.4 ML SYRINGE SC (08:39)
[2025-02-02] MEDS: DAPAGLIFLOZIN PROPANEDIOL 5 MG TABLET 10 MG PO (08:39)
[2025-02-02] MEDS: ASCORBIC ACID 250 MG TABLET 500 MG PO ×2 (08:40→21:32)
[2025-02-02] MEDS: ZINC SULFATE 220 MG CAPSULE PO (08:40)
[2025-02-02] MEDS: MULTIVITAMINS TABLET 1 TAB PO (08:41)
[2025-02-02] MEDS: INSULIN GLARGINE (Lantus) 5 UNIT/0.05 ML (PER 5 UNITS) 30 UNIT SC (08:41)
[2025-02-02] MEDS: SPIRONOLACTONE 25 MG TABLET PO (08:41)
[2025-02-02] MEDS: FUROSEMIDE INJ 10 MG/ML 4ML VIAL 40 MG IVP (08:42)
[2025-02-02] MEDS: PANTOPRAZOLE INJ 40 MG VIAL IVP (08:42)
[2025-02-02] MEDS: azaTHIOprine 50 MG TABLET PO (09:08)
--- NOTE | 2025-02-02 10:19 | PC.SS ---
Follow up note: Pt will d/c today. Continue with IV diuresis. Pt will return home upon d.c. and possibly require home O2.
[2025-02-02] MEDS: INSULIN GLARGINE (Lantus) 5 UNIT/0.05 ML (PER 5 UNITS) 10 UNIT SC (10:30)
--- NOTE | 2025-02-02 10:55 | PC.NURSE ---
Patient is currently on 2L NC O2. At rest her O2 saturation is 94%. At rest, no O2, Oxygen saturation dropped to 85% in less than 1 min. She recovered to 94% with O2 within 2 min.
[2025-02-02] MEDS: ONDANSETRON INJ 2 MG/ML INJ 2 ML 4 MG IVP (11:56)
--- NOTE | 2025-02-02 12:23 | PC.SS ---
SS has sent DME order for home O2 and walker using [employer].
--- NOTE | 2025-02-02 12:30 | PC.SS ---
Walkers The diagnosis creates mobility limitation that significantly impairs ability to participate in the patients activities of daily living either in their entirety, or in a reasonable time frame. Also the patient is able to safely use the walker and the patient?s mobility is sufficiently resolved with the use of the walker and cane has been ruled out. OXYGEN Pt is discharged in a chronic stable state and has been treated optimally and has other respiratory needs. ?Oxygen has been ordered due to Pleural Effusion.
[2025-02-02 13:10] LABS: Albumin, Serum 3.5 gm/dL (3.4-4.8); Anion Gap 9 (7-16); BUN/Creatinine Ratio 16 Ratio (12-20); Blood Urea Nitrogen 16 mg/dL (9-23); Calcium 9.5 mg/dL (8.3-10.6); Calcium (Corrected) 9.9 mg/dL (8.5-10.1); Carbon Dioxide 33.9 mMol/L (20.0-31.0); Chloride 100 mMol/L (98-107); Estimated Creatinine Clearance 66.1 mL/min (>60); Glucose 245 mg/dL (74-106); Osmolality,Calculated 294 (275-295); Potassium 3.6 mMol/L (3.4-5.1); Sodium 143 mMol/L (136-145); eGFR > 60 See Note
[2025-02-02] MEDS: amLODIPine BESYLATE 5 MG TABLET 10 MG PO (14:19)
--- NOTE | 2025-02-02 14:28 | XR_ITS ---
Examination: Abdomen AP single view Technique: AP portable supine abdomen, single view Exam date and time: February 04, 2025 1433 hours Comparison June 19, 2021 INDICATIONS: Onset abdominal pain today. FINDINGS: Abundant stool throughout the colon No obstruction Possible calcified lymph node in the right lower abdomen Surgical clips upper right abdomen No free air IMPRESSION: Large amounts of stool throughout the colon, no obstruction
[2025-02-02] MEDS: MG HYD/AL HYD/SIME (Maalox Reg) SUSP 30 ML UDC PO (14:40)
--- NOTE | 2025-02-02 14:59 | PC.SS ---
SS met with pt to provide verbal choices for DME Company. Patient's choice is [employer]. SS has spoken to Malou from [facility] (while in patient's room) who explained pt not eligible for walker due to receiving walker from [facility]. Pt states the walker she has is too small. Pt states she still has prescription from PCP to purchase walker. Pt is aware if Medicare does not cover cost of walker she will require to purchase one.
[2025-02-02 15:44] LABS: Hepatitis A Antibody IgM Non Reactive (Non React); Hepatitis B Core Antibody IgM Non Reactive (Non React); Hepatitis B Surface Antigen Non Reactive (Non React); Hepatitis C Antibody Non Reactive (Non React)
--- NOTE | 2025-02-02 16:19 | ESPR_ITS ---
<Statement entered by Ivania Frank MD - 02/03/25 07:17> I agree with plan and examination findings on this note , I have personally seen and examined patient. Labs and imaging reviewed. Ivania Frank PGY3 Documentation for date of: 02/02/25 Subjective Subjective Interval history: No acute overnight events reported. Patient seen and examined at bedside this morning. Patient is net - [id number]. Patient continues to have improvement of shortness of breath, patient is saturating above 95% on 2 L oxygen via nasal cannula. Although patient received to 30 mg of lisinopril her blood pressure is slightly elevated therefore will give amlodipine 10 x 1. Labs are reviewed this morning patient's sodium was 149 encouraged the patient to increase free water intake and repeat labs showed sodium 143 patient's fingerstick is above 200 therefore we will increase glargine to 40 and change the insulin sliding scale to 3. Patient also complained of abdominal pain although she had a regular bowel movement, denies diarrhea. will continue to monitor symptoms and anticipate discharge tomorrow. Exam Vital Signs Temp Pulse Resp BP Pulse Ox O2 Del Method O2 Flow Rate 97.7 F 71 20 168/66 H 96 Nasal Cannula 2 02/02/25 12:00 02/02/25 14:19 02/02/25 12:00 02/02/25 14:19 02/02/25 12:00 02/02/25 12:00 02/02/25 12:00 Narrative Exam GENERAL: A&Ox3 . Awake, Not in acute distress NEURO: no focal neurological deficits HEENT: Atraumatic, Normocephalic. mucous membranes moist. Eyes open, symmetrical, & clear HEART: Normal Heart Sounds LUNGS: Clear to auscultation with no wheezing or crackles. ABDOMEN: soft, non-distended, non-tender, bowel sounds heard, no guarding or rebound tenderness SKIN: ruptured bullous wounds bilaterally on lower extremities healing well EXTREMITIES: 1+ LE pitting edema extending to thighs bilaterally, no tenderness, able to move all 4 extremities, pedal pulses palpated Objective Labs 02/03/25 06:33 02/03/25 06:33 Labs: Laboratory Results - last 24 hr 02/02/25 02/02/25 06:09 12:38 WBC 8.0 RBC 4.74 Hgb 14.8 Hct 45.8 MCV 97 MCH 31.2 MCHC 32.3 RDW Std Deviation 62.7 H Plt Count 267 Neut % (Auto) 73 Lymph % (Auto) 14 Slope % (Auto) 7 Eos % (Auto) 6 Baso % (Auto) 1 Neut # (Auto) 5.8 Lymph # (Auto) 1.1 Slope # (Auto) 0.6 Eos # (Auto) 0.4 Baso # (Auto) 0.1 Immature Gran # (Auto) 0.01 H Absolute Nucleated RBC 0.00 Immature Gran % 0 Nucleated RBC % 0 Sodium 149 H 143 Potassium 3.9 3.6 Chloride 104 100 Carbon Dioxide 33.5 H 33.9 H Anion Gap 12 9 BUN 16 16 Creatinine 1.0 1.0 Estim Creat Clear Calc 66.1 66.1 eGFR > 60 > 60 BUN/Creatinine Ratio 16 16 Glucose 197 H 245 H Calculated Osmolality 302 H 294 Calcium 8.7 9.5 Corrected Calcium 9.3 9.9 Phosphorus 3.8 4.0 Magnesium 2.0 Total Bilirubin 0.7 AST 19 ALT < 7 L Alkaline Phosphatase 215 H Total Protein 5.9 Albumin 3.2 L 3.5 Globulin 2.7 Albumin/Globulin Ratio 1.2 Hepatitis A IgM Ab Non Reactive Hep Bs Antigen Non Reactive Hep B Core IgM Ab Non Reactive Hepatitis C Antibody Non Reactive Quality Measures Quality Measures none Advance care planning discussed with:: patient Assessment & Plan Assessment Current Active Medications: Generic Name Dose Route Start Last Admin Trade Name Freq PRN Reason Stop Dose Admin Acetaminophen 650 mg 01/31/25 01:29 02/01/25 13:40 Acetaminophen 325 Mg Tablet PO 03/02/25 01:28 650 mg Q6H PRN Administration Fever >99.5 Acetaminophen 1,000 mg 01/31/25 08:33 02/01/25 06:15 Acetaminophen 500 Mg Tablet PO 03/02/25 01:28 1,000 mg Q6H PRN Administration PAIN SCALE 1-3 (mild Amlodipine Besylate 10 mg 02/03/25 09:00 Amlodipine Besylate 5 Mg Tablet PO 03/05/25 08:59 QDAY CASH Ascorbic Acid 500 mg 02/01/25 14:45 02/02/25 08:40 Ascorbic Acid 250 Mg Tablet PO 03/03/25 14:44 500 mg BID CASH Administration Atorvastatin Calcium 10 mg 01/31/25 21:00 02/01/25 21:01 Atorvastatin Calcium 10 Mg Tablet PO 03/02/25 20:59 10 mg HS CASH Administration Azathioprine 50 mg 01/31/25 16:00 02/02/25 09:08 Azathioprine 50 Mg Tablet PO 03/02/25 15:59 50 mg QDAY CASH Administration Dapagliflozin 10 mg 01/31/25 09:15 02/02/25 08:39 Dapagliflozin Propanediol 5 Mg Tablet PO 03/02/25 09:14 10 mg QAM CASH Administration Dextrose 25 ml 01/31/25 01:37 Dextrose 50%-Water Inj 50 Ml Syringe IV 03/02/25 01:36 Q15MIN PRN BG 50-70 responsive npo pt Dextrose 50 ml 01/31/25 01:37 Dextrose 50%-Water Inj 50 Ml Syringe IV 03/02/25 01:36 Q15MIN PRN BG <50 OR BG <70 & pt unresponsive Docusate Sodium 100 mg 01/31/25 09:00 02/02/25 08:51 Docusate Sod 100 Mg Capsule PO 03/02/25 08:59 Not Given QDAY [facility] Protocol Enoxaparin Sodium 40 mg 01/31/25 09:00 02/02/25 08:39 Enoxaparin Sod Inj 40 Mg/0.4 Ml Syringe SC 02/14/25 08:59 40 mg QDAY CASH Administration Furosemide 40 mg 02/01/25 09:00 02/02/25 08:42 Furosemide Inj 10 Mg/Ml 4ml Vial IVP 03/03/25 08:59 40 mg QDAY CASH Administration Glucagon 1 mg 01/31/25 01:37 Glucagon Inj 1 Mg Vial IM Q15MIN PRN BG <70, and no IV access Insulin Glargine 40 unit 02/03/25 09:00 Insulin Glargine (Lantus) 5 Unit/0.05 Ml (Per 5 Units) SC 03/05/25 08:59 QDAY CASH Insulin Human Lispro 0 unit 02/02/25 14:00 Insulin Lispro (Admelog) 1 Unit/0.01 Ml Unit SC 03/02/25 07:29 AC [facility] Protocol Levothyroxine Sodium 25 mcg 01/31/25 06:00 02/02/25 05:15 Levothyroxine Sodium 25 Mcg Tablet PO 03/02/25 05:59 25 mcg ACBR CASH Administration Lisinopril 10 mg/ Lisinopril 30 mg 02/02/25 09:00 02/02/25 08:39 20 mg PO 03/04/25 08:59 30 mg QDAY CASH Administration Multivitamins 1 tab 02/01/25 14:45 02/02/25 08:41 Multivitamins Tablet PO 03/03/25 14:44 1 tab QDAY CASH Administration Ondansetron HCl 4 mg 01/31/25 01:29 02/02/25 11:56 Ondansetron Inj 2 Mg/Ml Inj 2 Ml IVP 03/02/25 01:28 4 mg Q6H PRN Administration NAUSEA OR VOMITING Protocol Pantoprazole Sodium 40 mg 02/03/25 09:00 Pantoprazole 40 Mg Tablet PO 03/05/25 08:59 QDAY CASH Protocol Pregabalin 75 mg 01/31/25 15:45 02/02/25 14:19 Pregabalin 75 Mg Capsule PO 03/02/25 15:44 75 mg TID CASH Administration Sennosides 1 tab 01/31/25 09:00 02/02/25 08:51 Senna Tablet PO 03/02/25 08:59 Not Given QDAY CASH Protocol Spironolactone 25 mg 01/31/25 10:30 02/02/25 08:41 Spironolactone 25 Mg Tablet PO 03/02/25 10:29 25 mg QDAY CASH Administration Zinc Sulfate 220 mg 02/01/25 14:45 02/02/25 08:40 Zinc Sulfate 220 Mg Capsule PO 02/15/25 14:44 220 mg QDAY CASH Administration Plan Ms. Cox is a 64-year-old female with past medical history of diabetes, hypertension, pemphigoid vulgaris, hypothyroidism, CHF with HFpEF presented to the ED due to diffuse swelling. Patient will be admitted for acute decompensated heart failure. #Acute CHF exacerbation, HFpEF [EF 55-60%] #Anasarca - improving #Bilateral pleural effusions Presented with clinical signs such as shortness of breath, dyspnea on exertion, bilateral leg swelling up to the mid abdomen, orthopnea, PND NYHA class: IV, symptoms even at rest CXR: Showing prominent vascular congestion BNP: 116, troponins negative Last echo: 11/05/2024: LV appears normal with EF 55-60%. Diastolic Dysfunction II present. RV appears normal with RVSP 33 mmHG. MV has mild MR & MAC, AOV is sclerotic with mild AI. TV has mild TR. CT abdomen shows bilateral pleural effusions Plan: - Tool Coordinator Dr. Camejo consulted, appreciate recommendations ? Echo ordered ? IV Lasix 40 mg Qday, spironolactone, and farxiga started. -Will hold pt's home metoprolol due to bradycardia during this hospital admission ? Keep K>4, Mg>2 ? Provide oxygen as required ? Strict I's and O's ? Fluid restriction 1800 mL #Hypernatremia Noted to have sodium of 149 this morning, corrected sodium is 151 We will encourage the patient to drink free water and reevaluate sodium level. #Insulin-dependent type 2 diabetes- uncontrolled #Diabetic neuropathy -A1c 9.2 on 01/31/2025 -Patient's home regimen includes Januvia, Jardiance, Lantus 60 units -Started patient on insulin sliding scale ordered, hypoglycemic protocol ordered, acu-checks ACHS -Started pt on glargine 40 units daily -resumed home pregabalin 75mg TID #Hypothyroidism -TSH 4.70 on 01/31/25 ? Resumed home levothyroxine #Hypertension #Hyperlipidemia -Will hold home amlodipine due to lower extremity edema and hold metoprolol due to bradycardia -Resumed lisinopril 30mg daily and amlodipine 10mg Qday and resumed home atorvastatin #Pemphigoid vulgaris #Chronic diarrhea -Patient has ruptured bolus bilaterally on lower extremities -resumed home azathioprine -Wound care, vitamin C, Zinc and multivitamisn ordered Health Maintenance: Disposition: Telemetry, IV diuresis Fluids: None Feeding: Low-sodium diet consistent low Thrombo prophylaxis: Lovenox Gastric Ulcer prophylaxis: Pantoprazole CODE STATUS: Full code Assessment and plan discussed with my senior resident Dr. Frank & attending physician Dr. Bernardo Pinto (PGY-1)- Internal medicine resident Attending Provider Attestation/Addendum I attest that I was physically present for the evaluation, physical examination, lab and imaging review of the patient with the residents. I discussed the case with the residents and agree with the findings and plans of care as documented above. At bedside today, patient is complaining of abdominal pain. Denies any nausea or vomiting. Her last bowel movement was yesterday. We will obtain x-ray KUB continues to be on IV Lasix, spironolactone and Farxiga, cardiology following closely, appreciate recommendations. Blood glucose noted to be on higher side, we will adjust her insulin regimen. Noted to have sodium of 149, corrected sodium 151. We will encourage patient to drink free water. Follow-up renal panel in the evening and tomorrow. Breezy Chang MD
[2025-02-02] MEDS: ATORVASTATIN CALCIUM 10 MG TABLET PO (21:32)
[2025-02-02] MEDS: ACETAMINOPHEN 500 MG TABLET 1000 MG PO (23:44)
[2025-02-03] VITALS (10 sets, daily range): BP systolic 146–160; BP diastolic 66–85; PULSE 59–76; RESP 12–22; TEMP 36.3; O2SAT 95–98; BMI 39.2
[2025-02-03] MEDS: PREGABALIN 75 MG CAPSULE PO ×2 (05:22→15:36)
[2025-02-03] MEDS: LEVOTHYROXINE SODIUM 25 MCG TABLET PO (05:22)
[2025-02-03 06:47] LABS: Phosphorous 3.5 mg/dL (2.4-5.1)
[2025-02-03] MEDS: ENOXAPARIN SOD INJ 40 MG/0.4 ML SYRINGE SC (08:28)
[2025-02-03] MEDS: amLODIPine BESYLATE 5 MG TABLET 10 MG PO (08:30)
[2025-02-03] MEDS: DOCUSATE SOD 100 MG CAPSULE PO (08:30)
[2025-02-03] MEDS: PANTOPRAZOLE 40 MG TABLET PO (08:31)
[2025-02-03] MEDS: SPIRONOLACTONE 25 MG TABLET PO (08:31)
[2025-02-03] MEDS: MULTIVITAMINS TABLET 1 TAB PO (08:31)
[2025-02-03] MEDS: SENNA TABLET 1 TAB PO (08:31)
[2025-02-03] MEDS: ASCORBIC ACID 250 MG TABLET 500 MG PO (08:31)
[2025-02-03] MEDS: ZINC SULFATE 220 MG CAPSULE PO (08:32)
[2025-02-03] MEDS: INSULIN GLARGINE (Lantus) 5 UNIT/0.05 ML (PER 5 UNITS) 40 UNIT SC (08:32)
[2025-02-03] MEDS: DAPAGLIFLOZIN PROPANEDIOL 5 MG TABLET 10 MG PO (08:32)
[2025-02-03] MEDS: FUROSEMIDE INJ 10 MG/ML 4ML VIAL 40 MG IVP (08:33)
[2025-02-03] MEDS: azaTHIOprine 50 MG TABLET PO (08:34)
--- NOTE | 2025-02-03 09:42 | PC.SS ---
Addendum entered by Lisa Singh 02/03/25 11:50: SS provided pt with [employer]. Original Note: SS met with pt who is requesting Home Health for PT. Pt does not have preference. Pt states she followed up with PCP, Dr. Rickie Landrum from [facility] last month.
[2025-02-03 10:04] LABS: Basophils # (Auto) 0.1 Thou/mm3 (0.0-0.2); Basophils % (Auto) 1 % (0-2.5); Eosinophils # (Auto) 0.4 Thou/mm3 (0.0-0.5); Eosinophils % (Auto) 6 % (0-10); Hematocrit 43.7 % (36.0-46.0); Hemoglobin 14.6 g/dL (12.0-16.0); Immature Granulocytes % (Auto) 0 % (0-0); Immature Granulocytes Auto 0.02 Thou/mm3 (0.00-0.00); Lymphocytes # (Auto) 1.4 Thou/mm3 (1.0-4.8); Lymphocytes % (Auto) 17 % (10-50); Mean Corpuscular HGB Conc 33.4 g/dl (31.0-37.0); Mean Corpuscular Hemoglobin 31.1 pg (25.0-35.0); Mean Corpuscular Volume 93 fL (80-100); Monocytes # (Auto) 0.6 Thou/mm3 (0.0-0.8); Monocytes % (Auto) 7 % (0-12); Neutrophils # (Auto) 5.5 Thou/mm3 (1.8-7.7); Neutrophils % (Auto) 70 % (37-80); Nucleated Red Blood Cell % 0 /100 WBC (0); Platelet Count 260 Thou/mm3 (140-440); RDW Standard Deviation 60.2 fL (36.4-46.3); Red Blood Count 4.69 Miln/mm3 (4.00-5.20); White Blood Count 7.9 Thou/mm3 (3.6-11.0)
[2025-02-03 11:19] LABS: Alanine Aminotransferase 11 U/L (10-49); Albumin/Globulin Ratio 1.3 (1.2-2.2); Alkaline Phosphatase 214 U/L (46-116); Anion Gap 9 (7-16); Aspartate Amino Transferase 26 U/L (0-34); BUN/Creatinine Ratio 19 Ratio (12-20); Bilirubin,Total 0.5 mg/dL (0.3-1.2); Blood Urea Nitrogen 17 mg/dL (9-23); Calcium 8.3 mg/dL (8.3-10.6); Calcium (Corrected) 9.1 mg/dL (8.5-10.1); Carbon Dioxide 34.8 mMol/L (20.0-31.0); Chloride 103 mMol/L (98-107); Creatinine (Component) 0.9 mg/dL (0.6-1.3); Estimated Creatinine Clearance 73.3 mL/min (>60); Globulin 2.4 gm/dL (2.3-3.5); Glucose 143 mg/dL (74-106); Osmolality,Calculated 295 (275-295); Potassium 4.6 mMol/L (3.4-5.1); Sodium 147 mMol/L (136-145); Total Protein 5.4 gm/dL (5.7-8.2); eGFR > 60 See Note
[2025-02-03] MEDS: INSULIN LISPRO (AdmeLOG) 1 UNIT/0.01 ML UNIT SC (12:00)
--- NOTE | 2025-02-03 19:49 | ESDS_ITS ---
Planned Discharge Date 02/03/25 DS: Providers Provider Date of admission: 01/31/25 01:29 Primary care physician: Physician No Primary/Family Admitting Provider: Eduardo Bonilla MD Attending Provider on Admission: Breezy Chang MD Consults: 01/31/25 06:31 Referral Wound Care Routine Comment: 01/31/25 12:02 Consult to Cardiology Routine Comment: Consulting Provider: Darek Camejo 01/31/25 16:58 Referral OP Wound Healing Dept Routine Comment: Instructions: BLE venous ulcers 01/31/25 16:59 Referral Nutritional Services Routine Comment: Wounds 02/03/25 10:34 Referral Physical Therapy Routine Comment: Physician Instructions: Attending Provider on DC: Ming Pinto MD Discharging Provider: Ming Pinto MD DS: Diagnosis Problem List Completed Was Problem List Reviewed/Reconciled?: Yes Hospital Course Hospital Course Hospital course: Ms. Cox is a 64-year-old female with past medical history of HFpEF, primary hypertension, dyslipidemia, diabetes mellitus type 2, hypothyroidism, pemphigus vulgaris, and diabetic neuropathy presented to [facility] emergency department on 01/31/2025 with chief complaint of weight gain, severe bilateral lower extremity swelling extending to her thighs , and shortness of breath. Pt was previously hospital and found to have HFpEF and discharged on home oxygen, however Pt states when she started to feel better she stopped using her home oxygen and returned it back to the company. Since then she noticed she started feeling gradually worsening shortness of breath and unable to lay flat. Pt states for the past 3 weeks she noticed gradually worsening edema in her lower extremities for which she repeatedly visited her primary care and adn the edema was attributed to her permphegoid vulgaris. Pt states she has not seen her theatrical scenic designer Dr. Camejo for 6 months. Pt complains her edema in LE and shortness of breath worsened to the point that she was unable to get out of bed. Pt was admitted to the hospital for IV diuretic in the setting of acute CHF exacerbation. Pt was also started on farxiga and spironolactone along with IV furosemide. Due to pt's bradycardia on admission and persistently low HR, we were unable to start the patient on beta jessica. For BP control pt is continued on amlodipine and lisinopril. Pt has significant improvement of symptoms, PT evaluation recommendation includes home health, PT is saturating well with 2L of oxygen, edema has significantly improved, Pt is hemodynamically stable to be discharge home with home health. Discharge Recommendations -Follow up outpatient with your primary care within 1 week, if you do not have one you can come see us at the [facility] by calling [phone] -Follow up with your theatrical scenic designer within 2 weeks -Please get follow up renal panel in 3 to 4 days -You have been started on 3 medications for your health, lasix, spironolactone and empagliflozin -Continue to take your lantus 60units in the morning and check your blood glucose 3 times a day. -Continue taking amlodipine and lisinopril for hypertension, and check your blood pressure daily -If your symptoms return or worsen, promptly return to the ED -Take all your medications as directed Hospitalization Diagnosis #Acute CHF exacerbation, HFpEF [EF 55-60%] #Anasarca - improving #Bilateral pleural effusions #Hypernatremia #Insulin-dependent type 2 diabetes- uncontrolled #Diabetic neuropathy #Hypothyroidism #Hypertension #Hyperlipidemia #Pemphigoid vulgaris #Chronic diarrhea Assessment and plan discussed with my attending physician Dr. Bernardo Pinto (PGY-1)- Internal medicine resident Time Spent with Patient Time attestation: Total time spent providing and/or coordinating discharge services: Time spent: Greater than 30 minutes Quality: Stroke Pt Provided Written Stroke Discharge Instructions: No Home Health Home Health Referral Orders: 02/03/25 13:07 Home Health Referral Routine Reason For Exam: Generalized weakness Home-Bound The patient must either because of illness or injury, need the aid of supportive devices such as crutches, canes, wheelchairs, and walkers; the use of special transportation; or the assistance of another person in order to leave their place of residence; OR have a condition such that leaving his or her home is medically contraindicated. In addition, the patient also meets the following criteria: patient is normally unable to leave the home and leaving home requires co nsiderable taxing effort. Addendum to Home Health Certification Practitioner's Certification: I certify that the patient has been under my care in the hospital and the care of attending physician (see below). We had a [id number] encounter on (see date below). My clinical findings indicate that the patient is home bound per the above criteria and the Home Health Services noted in these orders are medically necessary. The primary reason for the [id number] encounter is related to the fact that the patient requires home health services. Date Certifying [id number] Physician Encounter: 01/31/25 Physician's Name who will Assume Oversight for Services: Rickie Landrum Physician's Phone No.who will Assume Oversight for Service: AERIAL SPRAYER - Community Resources: No PT to Evaluate: Yes PT to evaluate and provide a treatmnet plan to increase patient's mobility and strength. Wound Care: No IV Therapy: No RN Safety Evaluation: Yes RN to evaluate and create a plan of care that will produce positive outcomes. Palliative Treatment: No Palliative treatment and evaluate the need for hospice. Home Health Aide - Personal Care: No Home Health Aide to assist with any ADL's. Exam Vital Signs Temp Pulse Resp BP Pulse Ox O2 Del Method O2 Flow Rate 97.3 F 72 12 155/69 H 96 Nasal Cannula 1 02/03/25 16:00 02/03/25 16:02/03/25 16:00 02/03/25 16:00 02/03/25 16:02/03/25 16:02/03/25 16:00 Narrative Exam GENERAL: A&Ox3 . Awake, Not in acute distress NEURO: no focal neurological deficits HEENT: Atraumatic, Normocephalic. mucous membranes moist. Eyes open, symmetrical, & clear HEART: Normal Heart Sounds LUNGS: Clear to auscultation with no wheezing or crackles. ABDOMEN: soft, non-distended, non-tender, bowel sounds heard, no guarding or rebound tenderness SKIN: ruptured bullous wounds bilaterally on lower extremities healing well EXTREMITIES: trace LE pitting edema extending to thighs bilaterally, no tenderness, able to move all 4 extremities, pedal pulses palpated Discharge Plan Plan Patient Disposition: Home w/HOME HEALTH Patient condition on transfer: Stable Care Plan Goals: -Follow up outpatient with your primary care within 1 week, if you do not have one you can come see us at the [facility] by calling [phone] -Follow up with your theatrical scenic designer within 2 weeks -Please get follow up renal panel in 3 to 4 days -You have been started on 3 medications for your health, lasix, spironolactone and empagliflozin -Continue to take your lantus 60units in the morning and check your blood glucose 3 times a day. -Continue taking amlodipine and lisinopril for hypertension, and check your blood pressure daily -If your symptoms return or worsen, promptly return to the ED -Take all your medications as directed Prescriptions/Referrals Prescriptions/Med Rec: New amlodipine 10 mg tablet 10 mg PO QDAY 30 Days Qty: 30 3RF empagliflozin 10 mg tablet 10 mg PO QAM Qty: 30 3RF lisinopril 30 mg Tablet 30 mg PO QDAY 30 Days Qty: 30 3RF spironolactone 25 mg Tablet 25 mg PO QDAY 30 Days Qty: 30 3RF furosemide [Lasix] 40 mg tablet 40 mg PO QDAY Qty: 30 3RF insulin glargine 100 unit/mL (3 mL) insulin pen 60 unit subcut QAM Qty: 15 3RF (DME) pen needle, diabetic 30 gauge x 3/16 needle See Rx Instructions .Route Qty: 1200 3RF Rx Instructions: As directed Continued atorvastatin 10 mg Tablet 10 mg PO HS Qty: 60 0RF pregabalin 75 mg Capsule 75 mg PO TID Qty: 60 0RF levothyroxine 25 mcg Tablet 25 mcg PO ACBR Qty: 60 0RF Held metoprolol succinate 25 mg Tablet Extended Release 24 Hr 25 mg PO QDAY Qty: 60 0RF Hold Instructions: Resume on 02/17/25. Hold due to bradycardia until Pt sees theatrical scenic designer Discontinued lisinopril 30 MG tablet 20 mg PO QDAY Qty: 0 insulin glargine [Basaglar KwikPen U-100 Insulin] 100 unit/mL (3 mL) Insulin Pen 45 unit SUB-Q QDAY meclizine 50 mg tablet 50 mg PO QDAY Qty: 14 0RF furosemide [Lasix] 20 mg tablet 20 mg PO QDAY Qty: 14 0RF potassium chloride 20 mEq tablet,ER particles/crystals 20 meq PO QDAY Qty: 10 0RF amlodipine 5 mg Tablet 5 mg PO QDAY Qty: 60 0RF benzonatate 100 mg Capsule 100 mg PO Q8HR PRN (Reason: Cough) Qty: 90 0RF Referrals: No Primary/Family,Physician [Primary Care Provider] - Outpatient Orders (i.e. Home Health, Labs, Imaging): DME: Walker-Front Wheel (Routine) Location: None Selected Ordered By: Britt Phillips Patient/Caregiver Discharge Instructions Discharge Activity: walk with walker only and activity as tolerated Education Materials: Taking a Diuretic Print Language: Rwandan Stand Alone Forms: Adrianne Award Info., Patient Portal Info Letter Discharge Order Discharge Orders: Discharge (Routine); Ordered 02/03/25 Ordered By: Ming Pinto Quality Discharge Quality Measures VTE prophylaxis MD Attestestation MD Attestation I attest that I was physically present for the evaluation, physical examination, lab and imaging review of the patient with the residents. I discussed the case with the residents and agree with the findings and plans of care as documented above. Breezy Chang MD
--- NOTE | 2025-02-05 10:55 | PC.CC ---
Addendum entered by Devin Leigh RN 02/05/25 11:10: Patient accepted by [facility], pending Start of care date. Original Note: 1050- Home health referrals sent out via [employer], awaiting responses at this time.
--- NOTE | 2025-02-07 13:31 | PC.CC ---
received call from Jaxon with [facility] stating that [facility] booked an SOC. [facility] was booked not [facility]. Per Jaxon, pt wants to keep SOC with [facility]. Canceled booking with [facility], resent ref to [facility]. SOC is 02/08
== END 2025-02-03 16:30 | disposition home health service (06) | DRG 291 ==
LOC: SERX 01-31 00:48 → SERHOLD 01-31 01:42 → S2NX 01-31 04:19
PROVIDERS: Nurse Practitioner Family; Student in an Organized Health Care Education/Training Program; Admitting Provider Student in an Organized Health Care Education/Training Program; Emergency Provider Emergency Medicine; Visit Provider Student in an Organized Health Care Education/Training Program
DX: I11.0 Hypertensive heart disease with heart failure (principal); I50.33 Acute on chronic diastolic (congestive) heart failure; L12.9 Pemphigoid, unspecified; L10.0 Pemphigus vulgaris; E87.0 Hyperosmolality and hypernatremia; E03.9 Hypothyroidism, unspecified; E11.40 Type 2 diabetes mellitus with diabetic neuropathy, unspecified; E78.5 Hyperlipidemia, unspecified; E11.649 Type 2 diabetes mellitus with hypoglycemia without coma; E11.65 Type 2 diabetes mellitus with hyperglycemia; E88.09 Other disorders of plasma-protein metabolism, not elsewhere classified; K57.30 Diverticulosis of large intestine without perforation or abscess without bleeding; M79.7 Fibromyalgia; Z88.1 Allergy status to other antibiotic agents; J45.909 Unspecified asthma, uncomplicated; K52.9 Noninfective gastroenteritis and colitis, unspecified; Z79.899 Other long term (current) drug therapy; Z79.4 Long term (current) use of insulin; Z87.440 Personal history of urinary (tract) infections; Z90.710 Acquired absence of both cervix and uterus
CPT/HCPCS: 36415; 71046; 74018; 74177; 80053; 80061; 80069; 80074; 81001; 83036; 83735; 83880; 84100; 84443; 84484; 85025; 85610; 87811; 93005; 96365; 96375; 97162; 99285; 99308; A4649; J0696; J1650; J1815; J1938; J2405; J2470; J7500; J8499; Q9967; A9270

== ENCOUNTER 2025-02-10 14:53 | Outpatient (AMB) | payer MEDICARE, SELFPAY ==
[2025-02-10 15:08] VITALS: BP 148/66; PULSE 70; TEMP 36.9; O2SAT 83
--- NOTE | 2025-02-10 15:08 | PD.RESCLINIC ---
Vital Signs 02/10/25 15:08 Weight 100.698 kg Weight Measurement Method Standing Scale BP 148/66 H Blood Pressure Source Automatic Cuff Blood Pressure Location Right Upper Arm Position Sitting Pulse 70 Pulse Source Monitor Temp 98.4 F Temp Source Temporal Artery Scan Pulse Oximetry (%) 83 L Oxygen Delivery Method Room Air Allergies/Meds Allergies & Medications Allergies vancomycin Allergy (Severe, Verified 02/17/25 15:05) HEART PALPITATION, CONFUSION, STOMACH PAIN Medication Reconciliation atorvastatin 10 mg tablet 10 mg PO HS #60 tabs 11/06/24 [Rx Confirmed 02/17/25] levothyroxine 25 mcg tablet 25 mcg PO ACBR #60 tabs 11/06/24 [Rx Confirmed 02/17/25] metoprolol succinate 25 mg tablet,extended release 24 hr 25 mg PO QDAY #60 tabs 11/06/24 [Rx Confirmed 02/17/25] Held on 02/03/25. Instructions: Resume on 02/17/25. 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 pregabalin 75 mg capsule 75 mg PO TID #60 caps 11/06/24 [Rx Confirmed 02/17/25] amlodipine 10 mg tablet 10 mg PO QDAY 30 days #30 tabs 02/03/25 [Rx Confirmed 02/17/25] empagliflozin 10 mg tablet 10 mg PO QAM #30 tabs 02/03/25 [Rx Confirmed 02/17/25] furosemide 40 mg tablet (Lasix) 40 mg PO QDAY #30 tabs 02/03/25 [Rx Confirmed 02/17/25] insulin glargine 100 unit/mL (3 mL) subcutaneous pen 60 unit (0.6 mL) subcut QAM #15 mL 02/03/25 [Rx Confirmed 02/17/25] lisinopril 30 mg tablet 30 mg PO QDAY 30 days #30 tabs 02/03/25 [Rx Confirmed 02/17/25] pen needle, diabetic 30 gauge x 3/16 #1,200 ea 02/03/25 [Rx Confirmed 02/17/25] spironolactone 25 mg tablet 25 mg PO QDAY 30 days #30 tabs 02/03/25 [Rx Confirmed 02/17/25] MA Intake Visit Data Collection New Patient or Established: Established Patient (seen at [facility] within 3 years) Seen by Clinical Staff ONLY (RN/MA): No Pain Present Currently: No Pain scale:: 0 Pain Scale Used: Alejandre-Harris/Numerical PCP or OBGYN visit in last 3 months: Yes Date of Last PCP or OBGYN visit: 02/03/25 Hx Now: No Do You Feel Safe at Home: Yes Authorities Contacted: N/A Smoking Status Smoking Status: Never smoker Immunization / Flu Flu Vaccine in the Last 12 Months: No Past Medical History Past Medical History NEUROLOGIC: Negative Neurological Disorders or Seizures CARDIAC: Positive Cardiac Disorders and Hypertension; Negative Congestive Heart Failure RESPIRATORY: Negative Chronic Obstructive Pulmonary Disease (COPD) or Asthma GASTROINTESTINAL: Positive Gastrointestinal Disorders GENITOURINARY: Negative Renal Disease ENDOCRINE: Positive Endocrine Disorders, Diabetes Mellitus Type 2 and Hypothyroidism; Negative Diabetes Mellitus Type 1 HEMATOLOGIC: Negative Sickle Cell Disease OTHER HISTORY: Positive Falls; Negative Blood Transfusions or Anesthesia Reactions Family History FAMILY HISTORY: Negative Family Gastrointestinal Problems Surgical History SURGICAL: Positive Bowel Surgery and Hysterectomy Social History SMOKING STATUS: Smoking status: Never smoker SECOND HAND EXPOSURE: second hand exposure: No ALCOHOL: Alcohol Intake: Never HOUSING: Housing: House LIVES WITH: Lives With: Spouse Patient Portal Questionaires PHQ-9 PHQ-2 Over the last 2 weeks, how often have you been bothered by any of the following problems? 1. Little interest or pleasure in doing things: not at all 2. Feeling down, depressed, or hopeless: not at all Total score: 0 Depression screen completed yes Social History Living Situation History Lives With: Family Housing: House Housing Other:: Pt lives with Tobacco History Smoking Status: Never smoker Second Hand Smoke Exposure: No Alcohol History Alcohol Intake: Never Domestic Abuse History Do You Feel Safe at Home: Yes Review of Systems Report any current symptoms Only answer those that you have currently: Past Medical History Past Medical History Have you ever been diagnosed with any of the following: Neurological Problems Seizures: No Cardiology Problems Congestive Heart Failure: No Hypertension: Yes Respiratory Problems Chronic Obstructive Pulmonary Disease (COPD): No Asthma: No Genital/Urinary Problems Renal Disease: No Endocrine Problems Diabetes Mellitus Type 1: No Diabetes Mellitus Type 2: Yes Hypothyroidism: Yes Blood Problems Sickle Cell Disease: No Other Problems Falls: Yes Blood Transfusions: No Anesthesia Reactions: No Surgical History Hysterectomy: Yes History of Present Illness HPI Narrative Ms. Cox is a 64-year-old female with past medical history of HFpEF, primary hypertension, dyslipidemia, diabetes mellitus type 2, hypothyroidism, pemphigus vulgaris, and diabetic neuropathy presented to [facility] emergency department on 01/31/2025 with chief complaint of weight gain, severe bilateral lower extremity swelling extending to her thighs , and shortness of breath. 02/10: Pt is in resident clinic for follow up after hospital admission. Pt was hospitalized due to acute CHF exacerbation and anasarca requiring IV lasix, pt was discharged from hospital with home oxygen. In office today pt is without her oxygen and saturating 83%, therefore Pt is started on supplemental oxygen 4L via oxy mask. Pt edema in LE has significantly improved, she continues the Lasix 40mg PO. Pt continues to struggle with controlling her blood glucose. Dose adjustment have been made multiple times, splitting the lantus to am and pm, but pt still becomes hyperglycemic and hypoglycemia in the morning with BG running in the 60's. Lantus have been tried at different dose once daily. Despite multiple attempts pt continues to have hyper and hypoglycemia. Pt is also advised if she has worsening shortness of breath,lower extremity edema and orthopnea, to take additional lasix that day(20mg instead of 40mg). Pt is upto date with her cardiology visits with Dr. Camejo, she follows for 20 years. During hospitalization Pt is started on GDMT for HFpEF inlcuding lisinopril, spironolactone, emgliflozin and lasix. Review of Systems Review of Systems Systems Reviewed: All systems reviewed, normal except as documented Office Procedures [facility] Level of Care Nursing/Assessment Patient Status: Established Patient Nursing Assessment/Reassessment: Medication Reconciliation, Update PMH in EMR and Vital Signs Coordination of Care: Complex Care and Chronic Disease 1-5, Consent,records obtained, informed consent, Education [facility]/Fam and Staff clarify orders Miscellaneous Interventions: Blood/Urine Collection Established Patient Charge Established Patient Point Assignment: 115 Established Patient Point Charge: EP Level 3 (80-115) Results Glucose Glucose 167 mg/dL Last Edit by Susan Billings MA on 02/10/25 15:29 TB Screening LTBI Screening: Has patient traveled, was born, or resided for at least 1 month, or frequent border crossing into a country with an elevated TB rate: No Immunosuppression, current or planned (HIV, organ transplant, treated with biologic agents, steroids, or other immunosuppression medication): No Close contact to someone with infectious TB disease during lifetime: No Homelessness or incarceration, current or past: No TB testing indicated at this time (at least 1 yes above): No
== END 2025-02-10 16:06 | disposition home or self-care (01) ==
LOC: HODAHC 14:53
PROVIDERS: Supervising Provider Internal Medicine
DX: I11.0 Hypertensive heart disease with heart failure (principal); I50.30 Unspecified diastolic (congestive) heart failure; E78.5 Hyperlipidemia, unspecified; E11.40 Type 2 diabetes mellitus with diabetic neuropathy, unspecified; R60.1 Generalized edema
CPT/HCPCS: 99213; G0463

== ENCOUNTER → 2025-02-10 | Outpatient (CLI) | payer MEDICARE, SELFPAY ==
[2025-02-10 17:45] LABS: Alanine Aminotransferase 16 U/L (10-49); Albumin, Serum 3.5 gm/dL (3.4-4.8); Albumin/Globulin Ratio 1.2 (1.2-2.2); Alkaline Phosphatase 199 U/L (46-116); Anion Gap 9 (7-16); Aspartate Amino Transferase 49 U/L (0-34); BUN/Creatinine Ratio 20 Ratio (12-20); Bilirubin,Total 0.5 mg/dL (0.3-1.2); Blood Urea Nitrogen 24 mg/dL (9-23); Calcium 8.5 mg/dL (8.3-10.6); Calcium (Corrected) 8.9 mg/dL (8.5-10.1); Carbon Dioxide 33.7 mMol/L (20.0-31.0); Chloride 102 mMol/L (98-107); Creatinine (Component) 1.2 mg/dL (0.6-1.3); Globulin 2.9 gm/dL (2.3-3.5); Glucose 190 mg/dL (74-106); Osmolality,Calculated 297 (275-295); Potassium 4.2 mMol/L (3.4-5.1); Sodium 145 mMol/L (136-145); Total Protein 6.4 gm/dL (5.7-8.2); eGFR 50 See Note
== END | disposition home or self-care (01) ==
PROVIDERS: PCP Internal Medicine; Referring Provider Internal Medicine; Visit Provider Internal Medicine
DX: R53.1 Weakness (principal); E11.9 Type 2 diabetes mellitus without complications
CPT/HCPCS: 36415; 80053

== ENCOUNTER 2025-02-17 14:39 | Outpatient (AMB) | payer MEDICARE, SELFPAY ==
--- NOTE | 2025-02-17 15:21 | PD.RESCLINIC ---
Allergies/Meds Allergies & Medications Allergies vancomycin Allergy (Severe, Verified 02/17/25 15:05) HEART PALPITATION, CONFUSION, STOMACH PAIN Medication Reconciliation atorvastatin 10 mg tablet 10 mg PO HS #60 tabs 11/06/24 [Rx Confirmed 02/17/25] levothyroxine 25 mcg tablet 25 mcg PO ACBR #60 tabs 11/06/24 [Rx Confirmed 02/17/25] metoprolol succinate 25 mg tablet,extended release 24 hr 25 mg PO QDAY #60 tabs 11/06/24 [Rx Confirmed 02/17/25] Held on 02/03/25. Instructions: Resume on 02/17/25. Hold due to bradycardia until Pt sees vocal music instructor pregabalin 75 mg capsule 75 mg PO TID #60 caps 11/06/24 [Rx Confirmed 02/17/25] amlodipine 10 mg tablet 10 mg PO QDAY 30 days #30 tabs 02/03/25 [Rx Confirmed 02/17/25] empagliflozin 10 mg tablet 10 mg PO QAM #30 tabs 02/03/25 [Rx Confirmed 02/17/25] furosemide 40 mg tablet (Lasix) 40 mg PO QDAY #30 tabs 02/03/25 [Rx Confirmed 02/17/25] insulin glargine 100 unit/mL (3 mL) subcutaneous pen 60 unit (0.6 mL) subcut QAM #15 mL 02/03/25 [Rx Confirmed 02/17/25] lisinopril 30 mg tablet 30 mg PO QDAY 30 days #30 tabs 02/03/25 [Rx Confirmed 02/17/25] pen needle, diabetic 30 gauge x 3/16 #1,200 ea 02/03/25 [Rx Confirmed 02/17/25] spironolactone 25 mg tablet 25 mg PO QDAY 30 days #30 tabs 02/03/25 [Rx Confirmed 02/17/25] MA Intake Visit Data Collection New Patient or Established: Established Patient (seen at [facility] within 3 years) Seen by Clinical Staff ONLY (RN/MA): No Pain Present Currently: Yes Smoking Status Smoking Status: Never smoker Past Medical History Past Medical History NEUROLOGIC: Negative Neurological Disorders or Seizures CARDIAC: Positive Cardiac Disorders and Hypertension; Negative Congestive Heart Failure RESPIRATORY: Negative Chronic Obstructive Pulmonary Disease (COPD) or Asthma GASTROINTESTINAL: Positive Gastrointestinal Disorders GENITOURINARY: Negative Renal Disease ENDOCRINE: Positive Endocrine Disorders, Diabetes Mellitus Type 2 and Hypothyroidism; Negative Diabetes Mellitus Type 1 HEMATOLOGIC: Negative Sickle Cell Disease OTHER HISTORY: Positive Falls; Negative Blood Transfusions or Anesthesia Reactions Family History FAMILY HISTORY: Negative Family Gastrointestinal Problems Surgical History SURGICAL: Positive Bowel Surgery and Hysterectomy Social History SMOKING STATUS: Smoking status: Never smoker SECOND HAND EXPOSURE: second hand exposure: No ALCOHOL: Alcohol Intake: Never HOUSING: Housing: House LIVES WITH: Lives With: Spouse Patient Portal Questionaires PHQ-9 PHQ-2 Over the last 2 weeks, how often have you been bothered by any of the following problems? 1. Little interest or pleasure in doing things: not at all Social History Living Situation History Lives With: Family Housing: House Housing Other:: Pt lives with Tobacco History Smoking Status: Never smoker Second Hand Smoke Exposure: No Alcohol History Alcohol Intake: Never Review of Systems Report any current symptoms Only answer those that you have currently: Past Medical History Past Medical History Have you ever been diagnosed with any of the following: Neurological Problems Seizures: No Cardiology Problems Congestive Heart Failure: No Hypertension: Yes Respiratory Problems Chronic Obstructive Pulmonary Disease (COPD): No Asthma: No Genital/Urinary Problems Renal Disease: No Endocrine Problems Diabetes Mellitus Type 1: No Diabetes Mellitus Type 2: Yes Hypothyroidism: Yes Blood Problems Sickle Cell Disease: No Other Problems Falls: Yes Blood Transfusions: No Anesthesia Reactions: No Surgical History Hysterectomy: Yes
== END 2025-02-17 15:51 | disposition home or self-care (01) ==
PROVIDERS: PCP Family Medicine; Referring Provider Family Medicine; Supervising Provider Internal Medicine
DX: R05.9 Cough, unspecified (principal)
CPT/HCPCS: 99213; G0463

== ENCOUNTER → 2025-02-17 | Outpatient (CLI) | payer MEDICARE, SELFPAY | END | disposition home or self-care (01) | LOC: SWHD 13:33 | PROVIDERS: PCP Family Medicine; Referring Provider Family Medicine; Visit Provider Student in an Organized Health Care Education/Training Program | DX: E11.621 Type 2 diabetes mellitus with foot ulcer (principal); L97.822 Non-pressure chronic ulcer of other part of left lower leg with fat layer exposed; L97.812 Non-pressure chronic ulcer of other part of right lower leg with fat layer exposed; E66.9 Obesity, unspecified; E03.9 Hypothyroidism, unspecified; Z79.4 Long term (current) use of insulin; Z79.84 Long term (current) use of oral hypoglycemic drugs; E11.40 Type 2 diabetes mellitus with diabetic neuropathy, unspecified; F41.9 Anxiety disorder, unspecified; I50.9 Heart failure, unspecified; I10 Essential (primary) hypertension | CPT/HCPCS: 17250 ==

== ENCOUNTER 2025-03-14 11:18 | Outpatient (AMB) | payer MEDICARE, SELFPAY ==
--- NOTE | 2025-03-14 11:29 | ACNOTE_ITS ---
Vital Signs 03/14/25 11:30 Height 1.63 m Height Method Stated Weight 99.79 kg Weight Measurement Method Standing Scale BMI 37.8 BP 136/70 H Blood Pressure Source Automatic Cuff Blood Pressure Location Right Upper Arm Position Sitting Respiration 14 Pulse 61 Pulse Source Monitor Temp 97.2 F Temp Source Oral Pulse Oximetry (%) 94 L Oxygen Delivery Method Room Air Allergies/Meds Allergies & Medications Allergies vancomycin Allergy (Severe, Verified 03/14/25 11:30) HEART PALPITATION, CONFUSION, STOMACH PAIN Medication Reconciliation atorvastatin 10 mg tablet 10 mg PO HS #60 tabs 11/06/24 [Rx Confirmed 03/14/25] levothyroxine 25 mcg tablet 25 mcg PO ACBR #60 tabs 11/06/24 [Rx Confirmed 03/14/25] metoprolol succinate 25 mg tablet,extended release 24 hr 25 mg PO QDAY #60 tabs 11/06/24 [Rx Confirmed 03/14/25] Held on 02/03/25. Instructions: Resume on 02/17/25. 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 pregabalin 75 mg capsule 75 mg PO TID #60 caps 11/06/24 [Rx Confirmed 03/14/25] amlodipine 10 mg tablet 10 mg PO QDAY 30 days #30 tabs 02/03/25 [Rx Confirmed 03/14/25] empagliflozin 10 mg tablet 10 mg PO QAM #30 tabs 02/03/25 [Rx Confirmed 03/14/25] furosemide 40 mg tablet (Lasix) 40 mg PO QDAY #30 tabs 02/03/25 [Rx Confirmed 03/14/25] insulin glargine 100 unit/mL (3 mL) subcutaneous pen 60 unit (0.6 mL) subcut QAM #15 mL 02/03/25 [Rx Confirmed 03/14/25] pen needle, diabetic 30 gauge x 3/16 #1,200 ea 02/03/25 [Rx Confirmed 03/14/25] spironolactone 25 mg tablet 25 mg PO QDAY 30 days #30 tabs 02/03/25 [Rx Confirmed 03/14/25] dextromethorphan HBr 10 mg/5 mL oral liquid 10 mg (5 mL) PO Q8H PRN cough #118 mL 02/17/25 [Rx Confirmed 03/14/25] furosemide 20 mg tablet (Lasix) 20 mg PO QAM PRN edema, weight gain> 2 pounds in a day , SOB #30 tabs 02/17/25 [Rx Confirmed 03/14/25] losartan 25 mg tablet 25 mg PO QDAY #30 tabs 02/17/25 [Rx Confirmed 03/14/25] empagliflozin 10 mg tablet 10 mg PO QAM #30 tabs 03/14/25 [Rx] MA Intake Visit Data Collection New Patient or Established: Established Patient (seen at [facility] within 3 years) Seen by Clinical Staff ONLY (RN/MA): No Reason for Visit:: FOLLOW UP Pain Present Currently: Yes Pain Location: Head (HEADACHE) Pain scale:: 6 Pain Scale Used: Alejandre-Harris/Numerical Operator Specialist Communications Required: No PCP or OBGYN visit in last 3 months: Yes Hx Now: No Smoking Status Smoking Status: Never smoker Immunization / Flu Flu Vaccine in the Last 12 Months: Yes Flu Vaccine Exclusion Criteria: No Exclusion Criteria Past Medical History Past Medical History NEUROLOGIC: Negative Neurological Disorders or Seizures CARDIAC: Positive Cardiac Disorders and Hypertension; Negative Congestive Heart Failure RESPIRATORY: Negative Chronic Obstructive Pulmonary Disease (COPD) or Asthma GASTROINTESTINAL: Positive Gastrointestinal Disorders GENITOURINARY: Negative Renal Disease ENDOCRINE: Positive Endocrine Disorders, Diabetes Mellitus Type 2 and Hypothyroidism; Negative Diabetes Mellitus Type 1 HEMATOLOGIC: Negative Sickle Cell Disease OTHER HISTORY: Positive Falls; Negative Blood Transfusions or Anesthesia Reactions Family History FAMILY HISTORY: Negative Family Gastrointestinal Problems Surgical History SURGICAL: Positive Bowel Surgery and Hysterectomy Social History SMOKING STATUS: Smoking status: Never smoker SECOND HAND EXPOSURE: second hand exposure: No ALCOHOL: Alcohol Intake: Never HOUSING: Housing: House LIVES WITH: Lives With: Spouse Patient Portal Questionaires PHQ-9 PHQ-2 Over the last 2 weeks, how often have you been bothered by any of the following problems? 1. Little interest or pleasure in doing things: not at all 2. Feeling down, depressed, or hopeless: not at all Total score: 0 PHQ-9 3. Trouble falling or staying asleep, or sleeping too much: Not at all 4. Feeling tired or having little energy: Not at all 5. Poor appetite or overeating: Not at all 6. Feeling bad about yourself - or that you are a failure or have let yourself or your family down: Not at all 7. Trouble concentrating on things, such as reading the newspaper or watching television: Not at all 8. Moving or speaking so slowly that other people could have noticed? - Or the opposite - being so fidgety or restless that you have been moving around a lot more than usual: not at all 9. Thoughts that you would be better off or of hurting yourself in some way: Not at all Total score: 0 Source: Developed by Drs. Severo Duran, Marlena Garcia, Moustapha Gilbert and colleagues, with an educational wilmar from [employer]. Depression screen completed yes Social History Living Situation History Lives With: Family Housing: House Housing Other:: Pt lives with Tobacco History Smoking Status: Never smoker Second Hand Smoke Exposure: No Alcohol History Alcohol Intake: Never Review of Systems Report any current symptoms Only answer those that you have currently: Past Medical History Past Medical History Have you ever been diagnosed with any of the following: Neurological Problems Seizures: No Cardiology Problems Congestive Heart Failure: No Hypertension: Yes Respiratory Problems Chronic Obstructive Pulmonary Disease (COPD): No Asthma: No Genital/Urinary Problems Renal Disease: No Endocrine Problems Diabetes Mellitus Type 1: No Diabetes Mellitus Type 2: Yes Hypothyroidism: Yes Blood Problems Sickle Cell Disease: No Other Problems Falls: Yes Blood Transfusions: No Anesthesia Reactions: No Surgical History Hysterectomy: Yes History of Present Illness HPI Narrative Ms. Cox is a 64-year-old female with past medical history of HFpEF, primary hypertension, dyslipidemia, diabetes mellitus type 2, hypothyroidism, pemphigus vulgaris, and diabetic neuropathy presented to [facility] emergency department on 01/31/2025 with chief complaint of weight gain, severe bilateral lower extremity swelling extending to her thighs , and shortness of breath. 02/10: Pt is in resident clinic for follow up after hospital admission. Pt was hospitalized due to acute CHF exacerbation and anasarca requiring IV lasix, pt was discharged from hospital with home oxygen. In office today pt is without her oxygen and saturating 83%, therefore Pt is started on supplemental oxygen 4L via oxy mask. Pt edema in LE has significantly improved, she continues the Lasix 40mg PO. Pt continues to struggle with controlling her blood glucose. Dose adjustment have been made multiple times, splitting the lantus to am and pm, but pt still becomes hyperglycemic and hypoglycemia in the morning with BG running in the 60's. Lantus have been tried at different dose once daily. Despite multiple attempts pt continues to have hyper and hypoglycemia. Pt is also advised if she has worsening shortness of breath,lower extremity edema and orthopnea, to take additional lasix that day(20mg instead of 40mg). Pt is upto date with her cardiology visits with Dr. Camejo, she follows for 20 years. During hospitalization Pt is started on GDMT for HFpEF inlcuding lisinopril, spironolactone, empagliflozin and lasix. 02/17: Pt states she has had a lingering cough since she had COVID in october. however she noticed it has progressively worsened since starting lisinopril last admission. Pt noticed due to excessive cough she has coughed up some blood on couple occasions. Pt also have difficulty swallow for last 1 year, and have experienced choking sensation when eating food, not with water. pt have gotten endoscopy done 15-20 years ago. last colonoscopy was approximately 15 years ago. deniesa fever, chills, recent URI, denies sick contacts. 03/14: Pt is in office for a follow up visit, pt endorses to feeling significant better, and has been compliant with all her medications. Currently not using oxygen and is saturating 94% on room air. Pt states her SOB of had completely resolved since taking additional 20mg of lasix as needed when she feels SOB. pt's BG has been controlling better as well. Most days BG is ranging 110 - 150's, occcationally it is 250's but it is contributed to her dietary choices when she goes out to eat with family. Pt has not activated her free style luanne yet. Continues to take lantus 60 units. Due to cost pt is unable to afford farxiga, (not covered by her insurance). SInce switching lisinopril to losartan pt no longer has a cough. Due to continued dysphagia and over due for routine colonoscopy, pt has agreed to see GI specialist for possible endoscopy and colonoscopy and further routine survivance on her cirrhosis. Review of Systems Review of Systems Systems Reviewed: All systems reviewed, normal except as documented Objective/Exam Narrative Physical exam: GENERAL: A&Ox3 elderly, obese female, cooperative and well groomed, Awake, Not in acute distress NEURO: no focal neurological deficits HEENT: Atraumatic, Normocephalic. mucous membranes moist. Eyes open, symmetrical, & clear HEART: Normal Heart Sounds LUNGS: Clear to auscultation with no wheezing or crackles. ABDOMEN: soft, non-distended, non-tender, bowel sounds heard, no guarding or rebound tenderness SKIN: healed scars of ruptured bullous wounds bilaterally on lower extremities EXTREMITIES: No edema, tenderness, able to move all 4 extremities, pedal pulses palpated Assessment & Plan Diagnosis / Problem List (1) Congestive heart failure: Status: Acute Assessment & Plan: HFpEF [EF 55-60%] On physical exam in office, pt does not appear to be in decompensated state currently saturating 94% on room air, denies SOB, and on physical exam trace pitting edema is noted. Plan: -continue losartan, spironolactone, and lasix -Pt is advised to take an extra 40mg of lasix if she experiences worsening shortness of breath and LE edema or weight gain -continue fluid restriction to 2L (2) Dysphagia: Status: Acute Assessment & Plan: -Pt has been having dyphagia for a long time, underwent endoscopy 15 years ago and cannot recall retains -Pt states she feels like something is stuck in her throat Plan: -referral to GI made, for possible endoscopy -Pt will also need routine colonoscopy (last colonoscopy was more than 10 years ago) Orders: Referrals Gastroenterology Advanced Care Planning Advance care planning discussed with:: patient Office Procedures [facility] Level of Care Nursing/Assessment Patient Status: Established Patient Nursing Assessment/Reassessment: Medication Reconciliation, Update PMH in EMR and Vital Signs Coordination of Care: Complex Care and Chronic Disease 1-5, Consent,records obtained, informed consent, Education Simp Pt/Fam, Lab and Imaging orders, Results/Orders obtained and Staff clarify orders Established Patient Charge Established Patient Point Assignment: 105 Established Patient Point Charge: EP Level 3 (80-115)
[2025-03-14 11:30] VITALS: BP 136/70; PULSE 61; RESP 14; TEMP 36.2; O2SAT 94; BMI 37.8
== END 2025-03-14 13:00 | disposition home or self-care (01) ==
LOC: HODAHC 11:18
PROVIDERS: Supervising Provider Internal Medicine
DX: I50.30 Unspecified diastolic (congestive) heart failure (principal); R13.10 Dysphagia, unspecified
CPT/HCPCS: 99213; G0463

== ENCOUNTER → 2025-03-24 | Outpatient (CLI) | payer MEDICARE, SELFPAY | END | disposition home or self-care (01) | PROVIDERS: PCP Family Medicine; Referring Provider Family Medicine; Visit Provider Student in an Organized Health Care Education/Training Program | DX: E11.621 Type 2 diabetes mellitus with foot ulcer (principal); L97.822 Non-pressure chronic ulcer of other part of left lower leg with fat layer exposed; L97.812 Non-pressure chronic ulcer of other part of right lower leg with fat layer exposed; E66.9 Obesity, unspecified; E03.9 Hypothyroidism, unspecified; Z79.4 Long term (current) use of insulin; Z79.84 Long term (current) use of oral hypoglycemic drugs; E11.40 Type 2 diabetes mellitus with diabetic neuropathy, unspecified; F41.9 Anxiety disorder, unspecified; I50.9 Heart failure, unspecified; I10 Essential (primary) hypertension | CPT/HCPCS: 17250; A9270 ==

== ENCOUNTER → 2025-04-14 | Outpatient (CLI) | payer MEDICARE, SELFPAY | END | disposition home or self-care (01) | LOC: SWHD 13:41 | PROVIDERS: PCP Family Medicine; Referring Provider Family Medicine; Visit Provider Student in an Organized Health Care Education/Training Program | DX: E11.621 Type 2 diabetes mellitus with foot ulcer (principal); L97.812 Non-pressure chronic ulcer of other part of right lower leg with fat layer exposed; E66.9 Obesity, unspecified; E03.9 Hypothyroidism, unspecified; Z79.84 Long term (current) use of oral hypoglycemic drugs; E11.40 Type 2 diabetes mellitus with diabetic neuropathy, unspecified; I50.9 Heart failure, unspecified | CPT/HCPCS: 99212; A9270; G0463 ==

== ENCOUNTER → 2025-05-05 | Outpatient (CLI) | payer MEDICARE, SELFPAY | END | disposition home or self-care (01) | LOC: SWHD 09:55 | PROVIDERS: PCP Family Medicine; Referring Provider Family Medicine; Visit Provider Student in an Organized Health Care Education/Training Program | DX: E11.621 Type 2 diabetes mellitus with foot ulcer (principal); L97.812 Non-pressure chronic ulcer of other part of right lower leg with fat layer exposed; E66.9 Obesity, unspecified; Z79.84 Long term (current) use of oral hypoglycemic drugs; E11.40 Type 2 diabetes mellitus with diabetic neuropathy, unspecified; I50.9 Heart failure, unspecified; E03.9 Hypothyroidism, unspecified | CPT/HCPCS: 16020; J3490; A9270 ==

== ENCOUNTER 2025-05-11 09:30 | Day surgery (SDC) | payer MEDICARE, SELFPAY ==
[2025-05-10 13:10] VITALS: BMI 35.2
[2025-05-11] VITALS (13 sets, daily range): BP systolic 155–179; BP diastolic 66–89; PULSE 65–77; RESP 11–20; TEMP 36.1–36.6; O2SAT 92–96; BMI 36.2
[2025-05-11] MEDS: fentaNYL CIT INJ 50 mCg/ML AMP 2ML (ASD USE ONLY) IVP (11:34)
[2025-05-11] MEDS: BENZOCAINE 20% (Hurricaine) SPRAY 1 DOSE TOP (11:34)
[2025-05-11] MEDS: SODIUM CHLORIDE 0.9% 500 ML 500 ML 20 ML IV (11:34)
[2025-05-11] MEDS: MIDAZOLAM INJ 1 MG/ML VIAL 2 ML (ASD USE ONLY) 2 MG IVP (11:34)
== END 2025-05-11 13:08 | disposition home or self-care (01) ==
PROVIDERS: Referring Provider Specialist; Visit Provider Specialist
PROC: 0DBE8ZX Excision of Large Intestine, Via Natural or Artificial Opening Endoscopic, Diagnostic (ICD-10-PCS; CPT 45380; principal; 2025-05-11 11:15)
PROC: (CPT 43239; 2025-05-11 11:15)
DX: K64.0 First degree hemorrhoids (principal); K57.30 Diverticulosis of large intestine without perforation or abscess without bleeding; K76.9 Liver disease, unspecified; E78.5 Hyperlipidemia, unspecified; E03.9 Hypothyroidism, unspecified; E11.9 Type 2 diabetes mellitus without complications; Z79.84 Long term (current) use of oral hypoglycemic drugs; Z79.890 Hormone replacement therapy; Z79.899 Other long term (current) drug therapy
CPT/HCPCS: 45378; A4649; C1769; J1200; J2250; J3010; J7999; A9270

== ENCOUNTER → 2025-05-19 | Outpatient (CLI) | payer MEDICARE, SELFPAY | END | disposition home or self-care (01) | LOC: SWHD 08:48 | PROVIDERS: PCP Family Medicine; Referring Provider Family Medicine; Visit Provider Student in an Organized Health Care Education/Training Program | DX: E11.621 Type 2 diabetes mellitus with foot ulcer (principal); L97.822 Non-pressure chronic ulcer of other part of left lower leg with fat layer exposed; E66.9 Obesity, unspecified; E11.40 Type 2 diabetes mellitus with diabetic neuropathy, unspecified; I50.9 Heart failure, unspecified; E03.9 Hypothyroidism, unspecified; I10 Essential (primary) hypertension; Z79.4 Long term (current) use of insulin | CPT/HCPCS: 99213; A9270; G0463 ==

== ENCOUNTER → 2025-05-26 | Outpatient (CLI) | payer MEDICARE, SELFPAY | END | disposition home or self-care (01) | LOC: SWHD 10:10 | PROVIDERS: PCP Family Medicine; Referring Provider Family Medicine; Visit Provider Student in an Organized Health Care Education/Training Program | DX: E11.621 Type 2 diabetes mellitus with foot ulcer (principal); L97.822 Non-pressure chronic ulcer of other part of left lower leg with fat layer exposed; E66.9 Obesity, unspecified; E11.40 Type 2 diabetes mellitus with diabetic neuropathy, unspecified; I50.9 Heart failure, unspecified; E03.9 Hypothyroidism, unspecified; I10 Essential (primary) hypertension; Z79.4 Long term (current) use of insulin | CPT/HCPCS: 29581 ==

== ENCOUNTER → 2025-06-02 | Outpatient (CLI) | payer MEDICARE, SELFPAY | END | disposition home or self-care (01) | LOC: SWHD 10:39 | PROVIDERS: PCP Family Medicine; Referring Provider Family Medicine; Visit Provider Student in an Organized Health Care Education/Training Program | DX: E11.621 Type 2 diabetes mellitus with foot ulcer (principal); L97.822 Non-pressure chronic ulcer of other part of left lower leg with fat layer exposed; S81.802A Unspecified open wound, left lower leg, initial encounter; W19.XXXA Unspecified fall, initial encounter; E66.9 Obesity, unspecified; E11.40 Type 2 diabetes mellitus with diabetic neuropathy, unspecified; E03.9 Hypothyroidism, unspecified; Z79.4 Long term (current) use of insulin; I11.9 Hypertensive heart disease without heart failure | CPT/HCPCS: 29580; A9270 ==

== ENCOUNTER → 2025-06-16 | Outpatient (CLI) | payer MEDICARE, SELFPAY | END | disposition home or self-care (01) | LOC: SWHD 08:47 | PROVIDERS: PCP Family Medicine; Referring Provider Family Medicine; Visit Provider Student in an Organized Health Care Education/Training Program | DX: E11.621 Type 2 diabetes mellitus with foot ulcer (principal); L97.822 Non-pressure chronic ulcer of other part of left lower leg with fat layer exposed; S81.802A Unspecified open wound, left lower leg, initial encounter; S81.801A Unspecified open wound, right lower leg, initial encounter; W19.XXXA Unspecified fall, initial encounter; E66.9 Obesity, unspecified; E11.40 Type 2 diabetes mellitus with diabetic neuropathy, unspecified; E03.9 Hypothyroidism, unspecified; Z79.4 Long term (current) use of insulin; I11.9 Hypertensive heart disease without heart failure | CPT/HCPCS: 99213; A9270; G0463 ==

== ENCOUNTER → 2025-06-23 | Outpatient (CLI) | payer MEDICARE, SELFPAY | END | disposition home or self-care (01) | LOC: SWHD 14:43 | PROVIDERS: PCP Family Medicine; Referring Provider Family Medicine; Visit Provider Student in an Organized Health Care Education/Training Program | DX: E11.621 Type 2 diabetes mellitus with foot ulcer (principal); L97.822 Non-pressure chronic ulcer of other part of left lower leg with fat layer exposed; S81.802A Unspecified open wound, left lower leg, initial encounter; S81.801A Unspecified open wound, right lower leg, initial encounter; W19.XXXA Unspecified fall, initial encounter; E66.9 Obesity, unspecified; E11.40 Type 2 diabetes mellitus with diabetic neuropathy, unspecified; E03.9 Hypothyroidism, unspecified; Z79.4 Long term (current) use of insulin; I11.9 Hypertensive heart disease without heart failure | CPT/HCPCS: 99212; G0463 ==

== ENCOUNTER → 2025-06-28 | Outpatient (CLI) | payer MEDICARE, SELFPAY ==
[2025-06-28 16:07] LABS: Misc Send Out* See Sep Rpt
[2025-06-29 15:52] LABS: RA Screen Negative (Negative)
[2025-07-05 19:50] LABS: Sjogren's antibody (SS-A) <1.0 NEG AI (<1.0 NEGATIVE); Sm Antibody <1.0 NEG AI (<1.0 NEGATIVE)
[2025-07-06 06:24] LABS: ANA Pattern NUCLEAR, SPECKLED; ANA Screen, IFA POSITIVE (NEGATIVE); ANA Titer 1:80 titer; Sjogren's Antibody (SS-B) <1.0 NEG AI (<1.0 NEGATIVE)
[2025-07-06 06:25] LABS: Actin Antibody (IgG)* <20 U; Complement Component C3* 173 mg/dL (83-193); Complement Component C4c* 23 mg/dL (15-57); DNA (ds) Antibody* <1 IU/mL; Gastric Parietal Cell Ab* <20.0 U; Mitochondrial Ab NEGATIVE (NEGATIVE); Myocardial Ab, IF NEGATIVE (NEGATIVE); Scl-70 Antibody* <1.0 NEG AI (<1.0 NEGATIVE); Sm/RNP Antibody <1.0 NEG AI (<1.0 NEGATIVE); Striated Muscle Ab NEGATIVE (NEGATIVE); Thyroid Peroxidase Antibodies* 1 IU/mL (<9)
== END | disposition home or self-care (01) ==
LOC: COPL 15:36
PROVIDERS: Referring Provider Specialist; Visit Provider Specialist
DX: K29.70 Gastritis, unspecified, without bleeding (principal); R53.81 Other malaise; R53.83 Other fatigue
CPT/HCPCS: 36415; 83516; 86015; 86038; 86160; 86225; 86235; 86255; 86376; 86430

== ENCOUNTER 2025-07-06 13:01 | Outpatient (AMB) | payer MEDICARE, SELFPAY ==
[2025-07-06 13:08] VITALS: BP 171/73; PULSE 59; RESP 18; TEMP 36.6; O2SAT 90
--- NOTE | 2025-07-06 13:08 | ACNOTE_ITS ---
Vital Signs 07/06/25 13:08 Weight 98.656 kg Weight Measurement Method Standing Scale BP 171/73 H Blood Pressure Source Automatic Cuff Blood Pressure Location Right Upper Arm Position Sitting Respiration 18 Pulse 59 L Pulse Source Monitor Temp 97.8 F Temp Source Temporal Artery Scan Pulse Oximetry (%) 90 L Oxygen Delivery Method Room Air Allergies/Meds Allergies & Medications Allergies adhesive tape Allergy (Severe, Verified 07/06/25 13:10) Rash vancomycin Allergy (Severe, Verified 07/06/25 13:10) HEART PALPITATION, CONFUSION, STOMACH PAIN Medication Reconciliation pregabalin 75 mg capsule 75 mg PO TID #60 caps 11/06/24 [Rx Confirmed 07/06/25] dextromethorphan HBr 10 mg/5 mL oral liquid 10 mg (5 mL) PO Q8H PRN cough #118 mL 02/17/25 [Rx Confirmed 07/06/25] amlodipine 10 mg tablet 10 mg PO QDAY 30 days #30 tabs 07/06/25 [Rx] atorvastatin 10 mg tablet 10 mg PO HS #60 tabs 07/06/25 [Rx] blood pressure monitor (Blood Pressure Kit) #1 ea 07/06/25 [Rx] blood pressure test kit-large #1 ea 07/06/25 [Rx] blood-glucose sensor (PetnetStyle Alvin 3 Plus Sensor device) #1 ea 07/06/25 [Rx] empagliflozin 10 mg tablet 10 mg PO QAM #30 tabs 07/06/25 [Rx] furosemide 40 mg tablet (Lasix) 40 mg PO QDAY #30 tabs 07/06/25 [Rx] insulin glargine 100 unit/mL (3 mL) subcutaneous pen 50 unit (0.5 mL) subcut QAM #15 mL 07/06/25 [Rx] levothyroxine 25 mcg tablet 25 mcg PO ACBR #60 tabs 07/06/25 [Rx] losartan 25 mg tablet 25 mg PO QDAY #30 tabs 07/06/25 [Rx] metoprolol succinate 25 mg tablet,extended release 24 hr 25 mg PO QDAY #60 tabs 07/06/25 [Rx] pen needle, diabetic 30 gauge x 3/16 #1,200 ea 07/06/25 [Rx] spironolactone 25 mg tablet 25 mg PO QDAY 30 days #30 tabs 07/06/25 [Rx] MA Intake Visit Data Collection New Patient or Established: Established Patient (seen at [facility] within 3 years) Seen by Clinical Staff ONLY (RN/MA): No Pain Present Currently: No Pain scale:: 0 Pain Scale Used: Alejandre-Harris/Numerical Aquatic Laborer Required: No PCP or OBGYN visit in last 3 months: Yes Hx Now: No Do You Feel Safe at Home: Yes Authorities Contacted: N/A Smoking Status Smoking Status: Never smoker Immunization / Flu Flu Vaccine in the Last 12 Months: No Flu Vaccine Exclusion Criteria: No Exclusion Criteria Past Medical History Past Medical History NEUROLOGIC: Positive Peripheral Neuropathy; Negative Neurological Disorders or Seizures CARDIAC: Positive Cardiac Disorders, Hypercholesterolemia and Hypertension; Negative Congestive Heart Failure RESPIRATORY: Negative Chronic Obstructive Pulmonary Disease (COPD) or Asthma GASTROINTESTINAL: Positive Gastrointestinal Disorders and Cirrhosis GENITOURINARY: Negative Genitourinary Disorders or Renal Disease MUSCULOSKELETAL: Positive Fibromyalgia ENT: Positive Cataracts (BILATERAL) ENDOCRINE: Positive Endocrine Disorders, Diabetes Mellitus Type 2 and Hy pothyroidism; Negative Diabetes Mellitus Type 1 HEMATOLOGIC: Negative Blood Disorders or Sickle Cell Disease PSYCHO/SOCIAL: Positive Anxiety OTHER HISTORY: Positive Falls; Negative Blood Transfusions, Blood Transfusion Reaction, Anesthesia Reactions or Cancer Family History FAMILY HISTORY: Negative Family Gastrointestinal Problems Surgical History SURGICAL: Positive Bowel Surgery and Hysterectomy Social History SMOKING STATUS: Smoking status: Never smoker SECOND HAND EXPOSURE: second hand exposure: No ALCOHOL: Alcohol Intake: Never HOUSING: Housing: House LIVES WITH: Lives With: Spouse Patient Portal Questionaires PHQ-9 PHQ-2 Over the last 2 weeks, how often have you been bothered by any of the following problems? 1. Little interest or pleasure in doing things: not at all PHQ-9 8. Moving or speaking so slowly that other people could have noticed? - Or the opposite - being so fidgety or restless that you have been moving around a lot more than usual: not at all Source: Developed by Drs. Severo Duran, Marlena Garcia, Moustapha Gilbert and colleagues, with an educational wilmar from [employer]. Social History Living Situation History Lives With: Family Housing: House Housing Other:: Pt lives with Tobacco History Smoking Status: Never smoker Second Hand Smoke Exposure: No Alcohol History Alcohol Intake: Never Domestic Abuse History Do You Feel Safe at Home: Yes Review of Systems Report any current symptoms Only answer those that you have currently: Past Medical History Past Medical History Have you ever been diagnosed with any of the following: Neurological Problems Seizures: No Peripheral Neuropathy: Yes Cardiology Problems Hypercholesterolemia: Yes Congestive Heart Failure: No Hypertension: Yes Respiratory Problems Chronic Obstructive Pulmonary Disease (COPD): No Asthma: No Stomache/Intestinal Problems Cirrhosis: Yes Genital/Urinary Problems Renal Disease: No Musculoskeletal Problems Fibromyalgia: Yes Head,Eye,Nose,Throat Problems Cataracts: Yes (BILATERAL) Endocrine Problems Diabetes Mellitus Type 1: No Diabetes Mellitus Type 2: Yes Hypothyroidism: Yes Blood Problems Sickle Cell Disease: No Psychologic Problems Anxiety: Yes Other Problems Falls: Yes Blood Transfusions: No Blood Transfusion Reaction: No Anesthesia Reactions: No Cancer: No Surgical History Hysterectomy: Yes History of Present Illness HPI Narrative Ms. Cox is a 64-year-old female with past medical history of HFpEF, primary hypertension, dyslipidemia, diabetes mellitus type 2, hypothyroidism, pemphigus vulgaris, and diabetic neuropathy presented to [facility] emergency department on 01/31/2025 with chief complaint of weight gain, severe bilateral lower extremity swelling extending to her thighs , and shortness of breath. 02/10: Pt is in resident clinic for follow up after hospital admission. Pt was hospitalized due to acute CHF exacerbation and anasarca requiring IV lasix, pt was discharged from hospital with home oxygen. In office today pt is without her oxygen and saturating 83%, therefore Pt is started on supplemental oxygen 4L via oxy mask. Pt edema in LE has significantly improved, she continues the Lasix 40mg PO. Pt continues to struggle with controlling her blood glucose. Dose adjustment have been made multiple times, splitting the lantus to am and pm, but pt still becomes hyperglycemic and hypoglycemia in the morning with BG running in the 60's. Lantus have been tried at different dose once daily. Despite multiple attempts pt continues to have hyper and hypoglycemia. Pt is also advised if she has worsening shortness of breath,lower extremity edema and orthopnea, to take additional lasix that day(20mg instead of 40mg). Pt is upto date with her cardiology visits with Dr. Camejo, she follows for 20 years. During hospitalization Pt is started on GDMT for HFpEF inlcuding lisinopril, spironolactone, empagliflozin and lasix. 02/17: Pt states she has had a lingering cough since she had COVID in october. however she noticed it has progressively worsened since starting lisinopril last admission. Pt noticed due to excessive cough she has coughed up some blood on couple occasions. Pt also have difficulty swallow for last 1 year, and have experienced choking sensation when eating food, not with water. pt have gotten endoscopy done 15-20 years ago. last colonoscopy was approximately 15 years ago. deniesa fever, chills, recent URI, denies sick contacts. 03/14: Pt is in office for a follow up visit, pt endorses to feeling significant better, and has been compliant with all her medications. Currently not using oxygen and is saturating 94% on room air. Pt states her SOB of had completely resolved since taking additional 20mg of lasix as needed when she feels SOB. pt's BG has been controlling better as well. Most days BG is ranging 110 - 150's, occcationally it is 250's but it is contributed to her dietary choices when she goes out to eat with family. Pt has not activated her free style alvin yet. Continues to take lantus 60 units. Due to cost pt is unable to afford farxiga, (not covered by her insurance). SInce switching lisinopril to losartan pt no longer has a cough. Due to continued dysphagia and over due for routine colonoscopy, pt has agreed to see GI specialist for possible endoscopy and colonoscopy and further routine survivance on her cirrhosis. 07/06/2025: Patient ran out of her medication but got it refilled by her utility repairer, Dr. Camejo last week. Her blood pressure at her appointment last week was 180/120 and she was advised to go to the emergency room but she did not. Today her blood pressure is 171/73. Counseled on compliance and refilled her medication. With regards to her heart failure, she is scheduled for an echocardiogram next week with Dr. Camejo. With regards to her diabetes, she says his blood glucose ranges between 50?207 at home. She was previously prescribed a freestyle alvin 3+ but ran out. Refilled her prescription today. Also decreased Lantus to 50 units from 60 units daily due to hypoglycemic episodes. CBC, A1c and CMP ordered today. Patient also complained of right hand swelling for the past 3 weeks. Denied any fever, pain or drainage. On exam right thenar eminence appears swollen and purple. Tender to touch but no fluctuance or punctum. Will order right hand ultrasound and x-ray.Will follow-up with patient in 1 week. Objective/Exam Narrative Physical exam: Constitutional Alert, oriented x 3 and comfortable HEENT Vision grossly intact. Patent nares. Trachea midline Respiratory Chest normal on inspection and clear auscultation bilaterally Cardiovascular S1 and S2 audible, RRR. No murmurs carotid bruit. No gross JVD. Abdominal Soft and non tender to palpation in all quadrants. BS + Genitourinary No bladder tenderness, no flank pain. Normal to palpation Musculoskeletal Extremities tone within normal limits. 2+ LE edema up to knees, compression stocking in place Neurological CN II - XII grossly intact. Extremity motor and sensation grossly intact. Ambulates with a walker Skin Warm, dry and intact. No apparent lesions. Psychiatric Patient has good affect, is cooperative Assessment & Plan Diagnosis / Problem List (1) Hand swelling: Status: Acute Assessment & Plan: Patient also complained of right hand swelling for the past 3 weeks. Denied any fever, pain or drainage. On exam right thenar eminence appears swollen and purple. Tender to touch but no fluctuance or punctum. Will order right hand ultrasound and x-ray.Will follow-up with patient in 1 week. Plan: - R hand US ordered to rule out abscess - R hand Xray to rule out fracture or osteomyelitis (2) Congestive heart failure: Status: Acute Qualifiers: Heart failure chronicity: chronic Heart failure type: diastolic Qualified Code(s): I50.32 - Chronic diastolic (congestive) heart failure Assessment & Plan: NYHA stage C Class 2 03/07/25 TTE - 50-55% EF. Stage II diastolic dysfunction On GDMT and F/U with Hardboard Press Operator Dr. Camejo Plan: Plan: -Continue Lasix 40mg po daily -Daily weight recording -Diet: 2g sodium restriction - Fluid restriction to 1.5L - ON GDMT - Continue Metoprolol succinate 25mg po daily - Continue Losartan 25mg po daily - Continue Spironolactone 25mg po daily - COntinue amlodipine 10mg po daily (3) Hypertension: Status: Acute Qualifiers: Hypertension type: primary hypertension Qualified Code(s): I10 - Essential (primary) hypertension Assessment & Plan: BP 171/73 Plan: - Continue anti-hypertensives (4) Diabetes: Status: Chronic Qualifiers: Diabetes mellitus complication detail: without coma Diabetes mellitus complication status: with hypoglycemia Diabetes mellitus product designer insulin use: with product designer use Diabetes mellitus type: type 2 Qualified Code(s): E11.649 - Type 2 diabetes mellitus with hypoglycemia without coma; Z79.4 - snf (current) use of insulin Assessment & Plan: With regards to her diabetes, she says his blood glucose ranges between 50?207 at home. She was previously prescribed a freestyle alvin 3+ but ran out. Refilled her prescription today. Also decreased Lantus to 50 units from 60 units daily due to hypoglycemic episodes. CBC, A1c and CMP ordered today. Plan: - Decreased Lantus to 50U sc daily from 60U sc daily Plan Plan of care discussed with Attending Dr. Doreen Bernal MD PGY 2 Disclaimer: This note was dictated by speech recognition. Minor errors in student assistance counselor may be present due to voice recognition software. Orders: Orders XR hand comp RT min 3V Today M79.89 - Other specified soft tissue disorders US sft tissue upper back chest Today M79.89 - Other specified soft tissue disorders US arterial duplex UE RT Today M79.89 - Other specified soft tissue disorders Advanced Care Planning Advance care planning discussed with:: patient Office Procedures [facility] Level of Care Nursing/Assessment Patient Status: Established Patient Nursing Assessment/Reassessment: Medication Reconciliation, Update PMH in EMR and Vital Signs Coordination of Care: Complex Care and Chronic Disease 1-5, Complex Care/Chronic Disease 5 or more, Education Complex Pt/Fam, Consent,records obtained, informed consent, Lab and Imaging orders, Results/Orders obtained and Staff clarify orders Established Patient Charge Established Patient Point Assignment: 145 Established Patient Point Charge: EP Level 4 (120-155)
== END 2025-07-06 14:01 | disposition home or self-care (01) ==
LOC: HODAHC 13:01
PROVIDERS: Supervising Provider Internal Medicine
DX: I11.0 Hypertensive heart disease with heart failure (principal); I50.30 Unspecified diastolic (congestive) heart failure; E03.9 Hypothyroidism, unspecified; E11.40 Type 2 diabetes mellitus with diabetic neuropathy, unspecified; R22.31 Localized swelling, mass and lump, right upper limb; E11.649 Type 2 diabetes mellitus with hypoglycemia without coma; Z79.4 Long term (current) use of insulin
CPT/HCPCS: 99214; G0463

== ENCOUNTER → 2025-07-06 | Outpatient (CLI) | payer MEDICARE, SELFPAY ==
--- NOTE | 2025-07-06 14:36 | XR_ITS ---
Examination: Hand, right 3 views Technique: Hand AP, oblique, lateral 3 views Date and time of exam: July 06, 2025, 14.9 hours INDICATIONS: Mass on the palmar side of the hand noticed beginning 3 weeks ago. FINDINGS: Severe osteopenia. No fracture. No cortical bone destruction IMPRESSION: No cortical bone destruction or bony exostosis Suggest ultrasound soft tissue follow-up of any palpable mass right hand
== END | disposition home or self-care (01) ==
LOC: CDIM 14:21
DX: M79.89 Other specified soft tissue disorders (principal)
CPT/HCPCS: 73130

== ENCOUNTER → 2025-07-06 | Outpatient (CLI) | payer MEDICARE, SELFPAY ==
[2025-07-06 13:28] LABS: Basophils # (Auto) 0.1 Thou/mm3 (0.0-0.2); Basophils % (Auto) 1 % (0-2.5); Eosinophils # (Auto) 0.5 Thou/mm3 (0.0-0.5); Eosinophils % (Auto) 5 % (0-10); Hematocrit 50.1 % (36.0-46.0); Hemoglobin 16.5 g/dL (12.0-16.0); Immature Granulocytes Auto 0.06 Thou/mm3 (0.00-0.00); Lymphocytes # (Auto) 1.7 Thou/mm3 (1.0-4.8); Lymphocytes % (Auto) 15 % (10-50); Mean Corpuscular HGB Conc 32.9 g/dl (31.0-37.0); Mean Corpuscular Hemoglobin 31.2 pg (25.0-35.0); Mean Corpuscular Volume 95 fL (80-100); Monocytes # (Auto) 0.6 Thou/mm3 (0.0-0.8); Monocytes % (Auto) 5 % (0-12); Neutrophils # (Auto) 7.9 Thou/mm3 (1.8-7.7); Neutrophils % (Auto) 74 % (37-80); Nucleated Red Blood Cell # 0.00 Thou/mm3 (0.00-0.00); Nucleated Red Blood Cell % 0 /100 WBC (0); Platelet Count 278 Thou/mm3 (140-440); RDW Standard Deviation 58.2 fL (36.4-46.3); Red Blood Count 5.29 Miln/mm3 (4.00-5.20); White Blood Count 10.8 Thou/mm3 (3.6-11.0)
[2025-07-06 13:31] LABS: Glucose Estimated Average 223 mg/dL (80-131); Hemoglobin A1C 9.4 % Hgb (4.8-6.0)
[2025-07-06 13:41] LABS: Alanine Aminotransferase 21 U/L (10-49); Albumin, Serum 3.7 gm/dL (3.4-4.8); Alkaline Phosphatase 198 U/L (46-116); Anion Gap 7 (7-16); Aspartate Amino Transferase 23 U/L (0-34); BUN/Creatinine Ratio 27 Ratio (12-20); Bilirubin,Direct 0.2 mg/dL (0.0-0.3); Bilirubin,Total 0.7 mg/dL (0.3-1.2); Blood Urea Nitrogen 32 mg/dL (9-23); Calcium 9.4 mg/dL (8.3-10.6); Carbon Dioxide 27.9 mMol/L (20.0-31.0); Chloride 107 mMol/L (98-107); Creatinine (Component) 1.2 mg/dL (0.6-1.3); Free T4 (Free Thyroxine) 1.20 ng/dL (0.89-1.76); Glucose 139 mg/dL (74-106); Osmolality,Calculated 292 (275-295); Potassium 5.0 mMol/L (3.4-5.1); Sodium 142 mMol/L (136-145); Thyroid Stimulating Hormone 2.45 uIU/mL (0.55-4.78); Total Protein 6.6 gm/dL (5.7-8.2); eGFR 50 See Note
[2025-07-06 13:55] LABS: Cardiac Risk Estimate 2.6 RATIO (3.7-5.6); Cholesterol 143 mg/dL (132-200); HDL Cholesterol 55 mg/dL (40-60); LDL Cholesterol,Calculated 71 mg/dL (0-130); Triglycerides 83 mg/dL (30-150)
== END | disposition home or self-care (01) ==
PROVIDERS: Referring Provider Internal Medicine Cardiovascular Disease; Visit Provider Internal Medicine Cardiovascular Disease
DX: I10 Essential (primary) hypertension (principal); E78.5 Hyperlipidemia, unspecified; E13.9 Other specified diabetes mellitus without complications
CPT/HCPCS: 36415; 80048; 80061; 80076; 83036; 84439; 84443; 85025

== ENCOUNTER 2025-07-15 12:57 | Outpatient (AMB) | payer MEDICARE, SELFPAY ==
[2025-07-15 13:04] VITALS: BP 166/71; PULSE 62; RESP 19; TEMP 35.9; O2SAT 97; BMI 37.5
--- NOTE | 2025-07-15 13:04 | ACNOTE_ITS ---
Vital Signs 07/15/25 13:04 Height 1.63 m Height Method Stated Weight 99.11 kg Weight Measurement Method Standing Scale BMI 37.5 BP 166/71 H Blood Pressure Source Automatic Cuff Blood Pressure Location Right Upper Arm Position Sitting Respiration 19 Pulse 62 Pulse Source Monitor Temp 96.7 F L Temp Source Temporal Artery Scan Pulse Oximetry (%) 97 Oxygen Delivery Method Room Air Allergies/Meds Allergies & Medications Allergies adhesive tape Allergy (Severe, Verified 07/15/25 13:05) Rash vancomycin Allergy (Severe, Verified 07/15/25 13:05) HEART PALPITATION, CONFUSION, STOMACH PAIN Medication Reconciliation pregabalin 75 mg capsule 75 mg PO TID #60 caps 11/06/24 [Rx Confirmed 07/15/25] dextromethorphan HBr 10 mg/5 mL oral liquid 10 mg (5 mL) PO Q8H PRN cough #118 mL 02/17/25 [Rx Confirmed 07/15/25] amlodipine 10 mg tablet 10 mg PO QDAY 30 days #30 tabs 07/06/25 [Rx Confirmed 07/15/25] atorvastatin 10 mg tablet 10 mg PO HS #60 tabs 07/06/25 [Rx Confirmed 07/15/25] blood pressure monitor (Blood Pressure Kit) #1 ea 07/06/25 [Rx Confirmed 07/15/25] blood pressure test kit-large #1 ea 07/06/25 [Rx Confirmed 07/15/25] blood-glucose sensor (FreeStyle Alvin 3 Plus Sensor device) #1 ea 07/06/25 [Rx Confirmed 07/15/25] empagliflozin 10 mg tablet 10 mg PO QAM #30 tabs 07/06/25 [Rx Confirmed 07/15/25] furosemide 40 mg tablet (Lasix) 40 mg PO QDAY #30 tabs 07/06/25 [Rx Confirmed 1 09/14/24] levothyroxine 25 mcg tablet 25 mcg PO ACBR #60 tabs 07/06/25 [Rx Confirmed 07/15/25] metoprolol succinate 25 mg tablet,extended release 24 hr 25 mg PO QDAY #60 tabs 07/06/25 [Rx Confirmed 07/15/25] pen needle, diabetic 30 gauge x 3/16 #1,200 ea 07/06/25 [Rx Confirmed 07/15/25] spironolactone 25 mg tablet 25 mg PO QDAY 30 days #30 tabs 07/06/25 [Rx Confirmed 07/15/25] insulin glargine 100 unit/mL (3 mL) subcutaneous pen 45 unit (0.45 mL) subcut QAM #15 mL 07/15/25 [Rx] insulin lispro 100 unit/mL subcutaneous pen (Admelog SoloStar U-100 Insulin lispro) 5 unit (0.05 mL) subcut TIDWMEAL 1 month #4.5 mL 07/15/25 [Rx] losartan 50 mg tablet 50 mg PO QDAY 1 month #30 tabs 07/15/25 [Rx] MA Intake Visit Data Collection New Patient or Established: Established Patient (seen at [facility] within 3 years) Seen by Clinical Staff ONLY (RN/MA): No Pain Present Currently: No Pain scale:: 0 Pain Scale Used: Alejandre-Harris[employer] Required: No PCP or OBGYN visit in last 3 months: Yes Hx Now: No Do You Feel Safe at Home: Yes Authorities Contacted: N/A Smoking Status Smoking Status: Never smoker Immunization / Flu Flu Vaccine in the Last 12 Months: No Flu Vaccine Exclusion Criteria: Already Received Past Medical History Past Medical History NEUROLOGIC: Positive Peripheral Neuropathy; Negative Neurological Disorders or Seizures CARDIAC: Positive Cardiac Disorders, Hypercholesterolemia and Hypertension; Negative Congestive Heart Failure RESPIRATORY: Negative Chronic Obstructive Pulmonary Disease (COPD) or Asthma GASTROINTESTINAL: Positive Gastrointestinal Disorders and Cirrhosis GENITOURINARY: Negative Genitourinary Disorders or Renal Disease MUSCULOSKELETAL: Positive Fibromyalgia ENT: Positive Cataracts (BILATERAL) ENDOCRINE: Positive Endocrine Disorders, Diabetes Mellitus Type 2 and Hypothyroidism; Negative Diabetes Mellitus Type 1 HEMATOLOGIC: Negative Blood Disorders or Sickle Cell Disease PSYCHO/SOCIAL: Positive Anxiety OTHER HISTORY: Positive Falls; Negative Blood Transfusions, Blood Transfusion Reaction, Anesthesia Reactions or Cancer Family History FAMILY HISTORY: Negative Family Gastrointestinal Problems Surgical History SURGICAL: Positive Bowel Surgery and Hysterectomy Social History SMOKING STATUS: Smoking status: Never smoker SECOND HAND EXPOSURE: second hand exposure: No ALCOHOL: Alcohol Intake: Never HOUSING: Housing: House LIVES WITH: Lives With: Spouse Patient Portal Questionaires PHQ-9 PHQ-2 Over the last 2 weeks, how often have you been bothered by any of the following problems? 1. Little interest or pleasure in doing things: not at all 2. Feeling down, depressed, or hopeless: not at all Total score: 0 PHQ-9 8. Moving or speaking so slowly that other people could have noticed? - Or the opposite - being so fidgety or restless that you have been moving around a lot more than usual: not at all Source: Developed by Drs. Severo Duran, Marlena Garcia, Moustapha Gilbert and colleagues, with an educational wilmar from [employer]. Social History Living Situation History Lives With: Family Housing: House Housing Other:: Pt lives with Tobacco History Smoking Status: Never smoker Second Hand Smoke Exposure: No Alcohol History Alcohol Intake: Never Domestic Abuse History Do You Feel Safe at Home: Yes Review of Systems Report any current symptoms Only answer those that you have currently: Past Medical History Past Medical History Have you ever been diagnosed with any of the following: Neurological Problems Seizures: No Peripheral Neuropathy: Yes Cardiology Problems Hypercholesterolemia: Yes Congestive Heart Failure: No Hypertension: Yes Respiratory Problems Chronic Obstructive Pulmonary Disease (COPD): No Asthma: No Stomache/Intestinal Problems Cirrhosis: Yes Genital/Urinary Problems Renal Disease: No Musculoskeletal Problems Fibromyalgia: Yes Head,Eye,Nose,Throat Problems Cataracts: Yes (BILATERAL) Endocrine Problems Diabetes Mellitus Type 1: No Diabetes Mellitus Type 2: Yes Hypothyroidism: Yes Blood Problems Sickle Cell Disease: No Psychologic Problems Anxiety: Yes Other Problems Falls: Yes Blood Transfusions: No Blood Transfusion Reaction: No Anesthesia Reactions: No Cancer: No Surgical History Hysterectomy: Yes History of Present Illness HPI Narrative Ms. Cox is a 64-year-old female with past medical history of HFpEF, primary hypertension, dyslipidemia, diabetes mellitus type 2, hypothyroidism, pemphigus vulgaris, and diabetic neuropathy presented to [facility] emergency department on 01/31/2025 with chief complaint of weight gain, severe bilateral lower extremity swelling extending to her thighs , and shortness of breath. 02/10: Pt is in resident clinic for follow up after hospital admission. Pt was hospitalized due to acute CHF exacerbation and anasarca requiring IV lasix, pt was discharged from hospital with home oxygen. In office today pt is without her oxygen and saturating 83%, therefore Pt is started on supplemental oxygen 4L via oxy mask. Pt edema in LE has significantly improved, she continues the Lasix 40mg PO. Pt continues to struggle with controlling her blood glucose. Dose adjustment have been made multiple times, splitting the lantus to am and pm, but pt still becomes hyperglycemic and hypoglycemia in the morning with BG running in the 60's. Lantus have been tried at different dose once daily. Despite multiple attempts pt continues to have hyper and hypoglycemia. Pt is also advised if she has worsening shortness of breath,lower extremity edema and orthopnea, to take additional lasix that day(20mg instead of 40mg). Pt is upto date with her cardiology visits with Dr. Camejo, she follows for 20 years. During hospitalization Pt is started on GDMT for HFpEF inlcuding lisinopril, spironolactone, empagliflozin and lasix. 02/17: Pt states she has had a lingering cough since she had COVID in october. however she noticed it has progressively worsened since starting lisinopril last admission. Pt noticed due to excessive cough she has coughed up some blood on couple occasions. Pt also have difficulty swallow for last 1 year, and have experienced choking sensation when eating food, not with water. pt have gotten endoscopy done 15-20 years ago. last colonoscopy was approximately 15 years ago. deniesa fever, chills, recent URI, denies sick contacts. 03/14: Pt is in office for a follow up visit, pt endorses to feeling significant better, and has been compliant with all her medications. Currently not using oxygen and is saturating 94% on room air. Pt states her SOB of had completely resolved since taking additional 20mg of lasix as needed when she feels SOB. pt's BG has been controlling better as well. Most days BG is ranging 110 - 150's, occcationally it is 250's but it is contributed to her dietary choices when she goes out to eat with family. Pt has not activated her free style alvin yet. Continues to take lantus 60 units. Due to cost pt is unable to afford farxiga, (not covered by her insurance). SInce switching lisinopril to losartan pt no longer has a cough. Due to continued dysphagia and over due for routine colonoscopy, pt has agreed to see GI specialist for possible endoscopy and colonoscopy and further routine survivance on her cirrhosis. 07/06/2025: Patient ran out of her medication but got it refilled by her physicist solid state, Dr. Camejo last week. Her blood pressure at her appointment last week was 180/120 and she was advised to go to the emergency room but she did not. Today her blood pressure is 171/73. Counseled on compliance and refilled her medication. With regards to her heart failure, she is scheduled for an echocardiogram next week with Dr. Camejo. With regards to her diabetes, she says his blood glucose ranges between 50?207 at home. She was previously prescribed a freestyle alvin 3+ but ran out. Refilled her prescription today. Also decreased Lantus to 50 units from 60 units daily due to hypoglycemic episodes. CBC, A1c and CMP ordered today. Patient also complained of right hand swelling for the past 3 weeks. Denied any fever, pain or drainage. On exam right thenar eminence appears swollen and purple. Tender to touch but no fluctuance or punctum. Will order right hand ultrasound and x-ray.Will follow-up with patient in 1 week. 07/15/2025: Patient is here for follow up labs and imaging. No complaints. Does not take BP at home, adherent to medications and in office [id number], increased losartan from 25 mg to 50mg. R hand swelling improved but bruising on thenar eminence still present, likely 2/2 walker, told to cushion handles. BG at home in AM is 50s-60s and evening is 200s. Administration of insulin depends on BG in AM. Last visit glargine decreased to 50 from 60, plan to decrease to 45 and lispro 5 with meals. Insurance does not cover Jardiance and they switched her to trajenta 5 mg QD which she has been taking for the past few months. RTC in 2 weeks. Review of Systems Review of Systems Systems Reviewed: All systems reviewed, normal except as documented Objective/Exam Narrative Physical exam: GENERAL: AOx3, no acute distress HEENT: mucous membranes moist, bilateral sclera anicteric CARDIOVASCULAR: regular rate and rhythm, S1/S2 present, no murmurs appreciated PULMONARY: clear to auscultation bilaterally, no rales/rhonchi/wheezes ABDOMINAL: soft, non-tender, non-distended, no rebound/guarding, bowel sounds present EXTREMITIES: no peripheral edema, R thenar eminence bruising, mild TTP SKIN: warm and dry, intact, no rashes NEURO: CN II-XII grossly intact, no focal deficits, alert, following commands Assessment & Plan Diagnosis / Problem List (1) Insulin dependent diabetes mellitus: Status: Acute Assessment & Plan: a1c 9.4 from 9.2 in 01/2025. Plan: Reports adherence to insulin glargine 50u, but hypoglycemic episodes in AM BG 50-60s and in evening 200s. Decreased glargine to 45 and instructed to take at night. Added lispro 5 with meals. Continue trajenta. Gave Alvin 3+ sample. (2) Hypertension: Status: Acute Qualifiers: Hypertension type: primary hypertension Qualified Code(s): I10 - Essential (primary) hypertension Assessment & Plan: SBP 166 in office. Plan: Advised to obtain BP cuff machine and log at home daily. Increased Losartan to 50 mg QD. Continue amlodipine 10 mg QD and metoprolol succinate 25 mg QD. (3) Congestive heart failure: Status: Acute Qualifiers: Heart failure chronicity: chronic Heart failure type: diastolic Qualified Code(s): I50.32 - Chronic diastolic (congestive) heart failure Assessment & Plan: Stable. Plan: Continue spironolactone and metoprolol. (4) Hypothyroidism: Status: Acute Qualifiers: Hypothyroidism type: unspecified Qualified Code(s): E03.9 - Hypothyroidism, unspecified Assessment & Plan: Stable. Asymptomatic Plan: Continue levothyroxine 25 mcg ACBR. (5) Hypoglycemia: Status: Acute Assessment & Plan: As above. Hypoglycemic in AM. Plan: Decreased long acting insulin as above. Advanced Care Planning Advance care planning discussed with:: patient Office Procedures [facility] Level of Care Nursing/Assessment Patient Status: Established Patient Nursing Assessment/Reassessment: Medication Reconciliation, Update PMH in EMR and Vital Signs Coordination of Care: Complex Care and Chronic Disease 1-5, Complex Care/Chronic Disease 5 or more, Consent,records obtained, informed consent, Lab and Imaging orders, Results/Orders obtained and Staff clarify orders Established Patient Charge Established Patient Point Assignment: 125 Established Patient Point Charge: EP Level 4 (120-155)
== END 2025-07-15 13:45 | disposition home or self-care (01) ==
LOC: HODAHC 12:57
PROVIDERS: Supervising Provider Internal Medicine
DX: E11.9 Type 2 diabetes mellitus without complications (principal); Z79.4 Long term (current) use of insulin; I11.0 Hypertensive heart disease with heart failure; I50.32 Chronic diastolic (congestive) heart failure; E03.9 Hypothyroidism, unspecified
CPT/HCPCS: 99214; G0463